=== PATIENT | male | born 1930 | race Caucasian/White ===

== ENCOUNTER 2018-07-14 00:08 | Emergency (ER) | payer MEDICARE, BC ==
[2018-07-14 00:13] VITALS: TEMP 97.8
--- NOTE | 2018-07-14 01:09 | ED ---
Male Urogenital HPI - General Chief complaint: Urogenital Stated complaint: Urine Retention Time Seen by Provider: 07/14/18 00:16 Source: patient Mode of arrival: ambulatory Limitations: no limitations - History of Present Illness Initial comments: 87-year-old male patient who is status post prostate biopsy this morning presents to the emergency department today for evaluation of urinary retention. Patient states he did urinate one time after the procedure however hasn't had no more urine output. Patient states he is having suprapubic discomfort. Patient states he has gotten out small amounts of blood since the surgery. He denies any fevers or chills. Denies any back pain. Denies any hematochezia or melena. Patient denies taking any anticoagulant medications. Patient denies any recent rash, shortness breath, chest pain, nausea, vomiting, diarrhea, constipation, numbness, tingling, dizziness, weakness, headache, visual changes , or any other complaints. - Related Data Home Medications Medication Instructions Recorded Confirmed Levothyroxine Sodium 25 mcg PO DAILY 07/14/18 07/14/18 Losartan Potassium [Cozaar] 25 mg PO DAILY 07/14/18 07/14/18 Allergies Allergy/AdvReac Type Severity Reaction Status Date / Time No Known Allergies Allergy Verified 07/14/18 00:13 Review of Systems ROS Statement: Those systems with pertinent positive or pertinent negative responses have been documented in the HPI. ROS Other: All systems not noted in ROS Statement are negative. Past Medical History Past Medical History: Dementia Additional Past Medical History / Comment(s): prostate biopsy today. prostate issues. bowel and bladder - pt will not give specifics. History of Any Multi-Drug Resistant Organisms: None Reported Additional Past Surgical History / Comment(s): biopsy of prostate. pt refusing to state all of them Past Psychological History: No Psychological Hx Reported Smoking Status: Never smoker Past Alcohol Use History: None Reported Past Drug Use History: None Reported General Exam Limitations: no limitations General appearance: alert, in no apparent distress, other (This is a well- developed, well-nourished elderly male patient in no acute distress. Vital signs upon presentation are temperature 97.8F, pulse 68, respirations 16, blood pressure 154/74, pulse ox 98% on room air.) Eye exam: Present: normal appearance, PERRL, EOMI. Absent: scleral icterus, conjunctival injection, periorbital swelling ENT exam: Present: normal exam, normal oropharynx, mucous membranes moist Respiratory exam: Present: normal lung sounds bilaterally. Absent: respiratory distress, wheezes, rales, rhonchi, stridor Cardiovascular Exam: Present: regular rate, normal rhythm, normal heart sounds. Absent: systolic murmur, diastolic murmur, rubs, gallop, clicks GI/Abdominal exam: Present: soft, tenderness (Suprapubic tenderness), normal bowel sounds. Absent: distended, guarding, rebound, rigid Neurological exam: Present: alert, oriented X3, CN II-XII intact Psychiatric exam: Present: normal affect, normal mood Skin exam: Present: warm, dry, intact, normal color. Absent: rash Course Vital Signs 07/14/18 07/14/18 00:09 01:33 Temperature 97.8 F Pulse Rate 68 65 Respiratory 16 18 Rate Blood Pressure 154/74 125/69 O2 Sat by Pulse 98 99 Oximetry Medical Decision Making - Medical Decision Making 87-year-old male patient presented to the emergency department today for evaluation of urinary retention after having a prostate biopsy earlier in the day. Physical examination did reveal some suprapubic tenderness. Johnson catheter was inserted patient had approximately 1600 mL output over a course of 2 hours. Patient is feeling much better. Urine is bright red in color, obviously mixed with urine. Urine was sent for culture. Patient is instructed to follow-up with his urologist in the morning. He is instructed to return if the catheter becomes occluded or for any other new, worsening, or concerning symptoms. He verbalizes understanding and agrees with this plan. Disposition Clinical Impression: Urinary retention, Hematuria Disposition: HOME SELF-CARE Condition: Good Instructions: Urinary Retention in Men (ED), Johnson Catheter Placement and Care (ED), Hematuria (ED) Additional Instructions: Increase fluids. Follow-up with your urologist Dr. Bryson tomorrow. Return here immediately for any new, worsening, or concerning symptoms. Is patient prescribed a controlled substance at d/c from ED?: No Referrals: Jose Moreno MD [Primary Care Provider] - 1-2 days Jaguar Bryson MD [STAFF PHYSICIAN] - 1-2 days Time of Disposition: 01:41
[2018-07-14 01:42] VITALS: BP 125/69; PULSE 65; RESP 18
== END 2018-07-14 01:53 | disposition home or self-care (01) ==
LOC: EC 00:08
DX: R33.9 Retention of urine, unspecified (principal); R31.9 Hematuria, unspecified; Z98.890 Other specified postprocedural states; Z79.899 Other long term (current) drug therapy
CPT/HCPCS: 51702; 87086; 99283

== ENCOUNTER 2018-07-18 23:04 | Emergency (ER) | payer MEDICARE, BC ==
[2018-07-18 23:12] VITALS: RESP 18
--- NOTE | 2018-07-18 23:48 | ED ---
Male Urogenital HPI - General Chief complaint: Urogenital Stated complaint: Urine Retention Time Seen by Provider: 07/18/18 23:36 Source: patient Mode of arrival: ambulatory Limitations: no limitations - History of Present Illness Initial comments: 87-year-old male patient presents the emergency department today for evaluation of urinary retention. Patient had Johnson catheter removed this morning at around 8 AM and has had only tiny dribbles since. Patient states there has been blood in the urine. Patient is complaining of suprapubic pressure and pain. Patient was seen and evaluated here for the same on 07/14/2018 after having a prostate biopsy performed. Patient did have Johnson catheter placed at that time. Patient denies any fevers or chills. Denies any back or flank pain. His prostate biopsy is still pending. Patient denies any recent rash, shortness breath, chest pain, nausea, vomiting, diarrhea, constipation, numbness , tingling, dizziness, weakness, headache, visual changes, or any other complaints. - Related Data Home Medications Medication Instructions Recorded Confirmed Levothyroxine Sodium 75 mcg PO DAILY 07/14/18 07/19/18 Losartan Potassium [Cozaar] 50 mg PO DAILY 07/14/18 07/19/18 Atenolol 25 mg PO DAILY 07/19/18 07/19/18 Tamsulosin HCl [Flomax] 0.4 mg PO DAILY 07/19/18 07/19/18 Previous Rx's Medication Instructions Recorded Sulfamethoxazole/Trimethoprim 1 each PO BID #28 tablet 07/19/18 [Bactrim DS 800-160 mg] Allergies Allergy/AdvReac Type Severity Reaction Status Date / Time No Known Allergies Allergy Verified 07/18/18 23:12 Review of Systems ROS Statement: Those systems with pertinent positive or pertinent negative responses have been documented in the HPI. ROS Other: All systems not noted in ROS Statement are negative. Past Medical History Past Medical History: Dementia Additional Past Medical History / Comment(s): prostate biopsy today. prostate issues. bowel and bladder - pt will not give specifics. History of Any Multi-Drug Resistant Organisms: None Reported Additional Past Surgical History / Comment(s): biopsy of prostate. pt refusing to state all of them Past Psychological History: No Psychological Hx Reported Smoking Status: Never smoker Past Alcohol Use History: None Reported Past Drug Use History: None Reported General Exam Limitations: no limitations General appearance: alert, in no apparent distress, other (This is a well- developed, well-nourished elderly male patient in no acute distress. Vital signs upon presentation are temperature 97.5F, pulse 86, respirations 18, blood pressure 150/75, pulse ox 98% on room air.) Eye exam: Present: normal appearance, PERRL, EOMI. Absent: scleral icterus, conjunctival injection, periorbital swelling ENT exam: Present: normal exam, normal oropharynx, mucous membranes moist Respiratory exam: Present: normal lung sounds bilaterally. Absent: respiratory distress, wheezes, rales, rhonchi, stridor Cardiovascular Exam: Present: regular rate, normal rhythm, normal heart sounds. Absent: systolic murmur, diastolic murmur, rubs, gallop, clicks GI/Abdominal exam: Present: soft, tenderness (suprapubic tenderness), normal bowel sounds. Absent: distended, guarding, rebound, rigid Back exam: Present: normal inspection. Absent: CVA tenderness (R), CVA tenderness (L) Neurological exam: Present: alert, oriented X3, CN II-XII intact Psychiatric exam: Present: normal affect, normal mood Skin exam: Present: warm, dry, intact, normal color. Absent: rash Course Vital Signs 07/18/18 07/19/18 23:10 01:36 Temperature 97.5 F L 97.1 F L Pulse Rate 86 89 Respiratory 18 18 Rate Blood Pressure 150/75 135/63 O2 Sat by Pulse 98 98 Oximetry Medical Decision Making - Medical Decision Making 87-year-old male patient presented to the emergency department today for evaluation for urinary retention. Patient did have Johnson catheter removed by his urologist this morning and has not urinated since. Physical examination did reveal suprapubic abdominal tenderness. Johnson catheter was inserted, had output of 600 mL, and patient did have immediate relief of symptoms. Urinalysis was obtained and showed 1+ protein, moderate blood, moderate leukocyte esterase, 88 red blood cells, 31 white blood cells, rare white blood cell clumps, rare amorphous sediment, rare urine bacteria, rare urine mucus. Given recent prostate biopsy and urinalysis results we will treat for urinary tract infection with coverage for prostatitis. Patient is instructed to follow- up with his urologist for recheck as soon as possible. Return parameters were discussed in detail. He verbalizes understanding and agrees with this plan. - Lab Data Lab Results 07/19/18 Range/Units 00:21 Urine Color Yellow Urine Appearance Cloudy (Clear) Urine pH 5.5 (5.0-8.0) Ur Specific [place] 1.011 (1.001-1.035) Urine Protein 1+ H (Negative) Urine Glucose (UA) Negative (Negative) Urine Ketones Negative (Negative) Urine Blood Moderate H (Negative) Urine Nitrite Negative (Negative) Urine Bilirubin Negative (Negative) Urine Urobilinogen <2.0 (<2.0) mg/dL Ur Leukocyte Esterase Moderate H (Negative) Urine RBC 88 H (0-5) /hpf Urine WBC 31 H (0-5) /hpf Urine WBC Clumps Rare H (None) /hpf Ur Squamous Epith Cells <1 (0-4) /hpf Amorphous Sediment Rare H (None) /hpf Urine Bacteria Rare H (None) /hpf Hyaline Casts 1 (0-2) /lpf Urine Mucus Rare H (None) /hpf Disposition Clinical Impression: Urinary retention, Urinary tract infection Disposition: HOME SELF-CARE Condition: Good Instructions: Urinary Tract Infection in Men (ED), Johnson Catheter Placement and Care (ED) Additional Instructions: Complete antibiotic prescription and full. Follow-up with your primary care physician for recheck in 1-2 days. Follow-up with urology for reevaluation as soon as possible. Return here immediately for any new, worsening, or concerning symptoms. Prescriptions: Sulfamethoxazole/Trimethoprim [Bactrim DS 800-160 mg] 1 each PO BID #28 tablet Is patient prescribed a controlled substance at d/c from ED?: No Referrals: Jose Moreno MD [Primary Care Provider] - 1-2 days Jaguar Bryson MD [STAFF PHYSICIAN] - 1-2 days Time of Disposition: 01:08
[2018-07-19 01:03] LABS: Amorphous Sediment,Urine Rare /hpf; Appearance,Urine Cloudy (Clear); Bacteria,Urine Rare /hpf; Bilirubin,Urine Negative (Negative); Blood,Urine Moderate (Negative); Color,Urine Yellow; Glucose,Urine (UA) Negative (Negative); Hyaline Casts,Urine 1 /lpf (0-2); Ketones,Urine Negative (Negative); Leukocyte Esterase,Urine Moderate (Negative); Mucus,Urine Rare /hpf; Nitrite,Urine Negative (Negative); PH, Urine 5.5 (5.0-8.0); Protein,Urine 1+ (Negative); RBC,Urine 88 /hpf (0-5); Specific Gravity,Urine 1.011 (1.001-1.035); Squamous Epithelial Cell,Urine <1 /hpf (0-4); Urobilinogen,Urine <2.0 mg/dL (<2.0); WBC,Urine 31 /hpf (0-5)
[2018-07-19] MEDS ORDERED: DOXYCYCLINE 50 MG CAP PO STA (01:05)
[2018-07-19] MEDS ORDERED: SULFAMETH-TMP DS STARTER PACK 2 TAB BTL PO STA (01:06)
[2018-07-19 01:38] VITALS: BP 135/63; PULSE 89; TEMP 97.1
== END 2018-07-19 01:38 | disposition home or self-care (01) ==
LOC: EC 23:04
DX: N39.0 Urinary tract infection, site not specified (principal); R33.9 Retention of urine, unspecified; Z98.890 Other specified postprocedural states; Z79.899 Other long term (current) drug therapy
CPT/HCPCS: 51702; 81001; 87086; 99283

== ENCOUNTER → 2018-07-24 | Outpatient (CLI) | payer MEDICARE, BC ==
--- NOTE | 2018-07-24 14:56 | NM ---
EXAMINATION TYPE: NM bone scan whole body DATE OF EXAM: 07/24/2018 COMPARISON: NONE HISTORY: C61 Prostate CA Delayed whole-body scanning was performed following the injection of 23.1 mCi Tc 99m MDP. Images acq uired 3 hours post injection. FINDINGS: There is increased radiotracer accumulation along the bilateral superior pubic rami and left osseous pubis. Metastatic disease is not excluded. Osteitis is an additional consideration. No additional are as of increased radiotracer accumulation to suggest the additional areas of metastatic disease. Degen erative uptake about the cervical spine, shoulders, wrists and knees and ankles. IMPRESSION: There is increased radiotracer accumulation along the bilateral superior pubic rami and left osseous pubis. Metastatic disease is not excluded. Osteitis is an additional consideration.
== END | disposition home or self-care (01) ==
LOC: RADNMMAIN 10:42
PROVIDERS: ATTEND Urology
DX: C61 Malignant neoplasm of prostate (principal); M85.39 Osteitis condensans, multiple sites
CPT/HCPCS: 78306; A9503

== ENCOUNTER 2018-07-25 23:39 | Emergency (ER) | payer MEDICARE, BC ==
[2018-07-25 23:43] VITALS: BP 116/45; PULSE 60; RESP 18; TEMP 98.3
[2018-07-26 00:15] LABS: Appearance,Urine Cloudy (Clear); Bacteria,Urine Many /hpf; Bilirubin,Urine Negative (Negative); Blood,Urine Moderate (Negative); Color,Urine Yellow; Glucose,Urine (UA) Negative (Negative); Ketones,Urine Negative (Negative); Leukocyte Esterase,Urine Large (Negative); Nitrite,Urine Positive (Negative); PH, Urine 5.5 (5.0-8.0); Protein,Urine 2+ (Negative); RBC,Urine 17 /hpf (0-5); Specific Gravity,Urine 1.015 (1.001-1.035); Urobilinogen,Urine <2.0 mg/dL (<2.0); WBC,Urine 128 /hpf (0-5)
--- NOTE | 2018-07-26 00:18 | ED ---
General Adult HPI - General Chief complaint: Urogenital Stated complaint: Urine Retention Time Seen by Provider: 07/25/18 23:44 Source: patient, RN notes reviewed, old records reviewed Mode of arrival: ambulatory Limitations: no limitations - History of Present Illness Initial comments: Chief complaint and history of present illness this is an 87-year-old male reports she's not been able to urinate since 8:30 this morning. Patient also states she's been her several times in the last 2 weeks this being the third time eating a catheter placed. He is currently taking antibiotics from a previous urinalysis. He states at he discussed this with his urologist and because this is the third time then they will consider surgery. He does have a history of prostate cancer. - Related Data Home Medications Medication Instructions Recorded Confirmed Levothyroxine Sodium 75 mcg PO DAILY 07/14/18 07/19/18 Losartan Potassium [Cozaar] 50 mg PO DAILY 07/14/18 07/19/18 Atenolol 25 mg PO DAILY 07/19/18 07/19/18 Tamsulosin HCl [Flomax] 0.4 mg PO DAILY 07/19/18 07/19/18 Previous Rx's Medication Instructions Recorded Sulfamethoxazole/Trimethoprim 1 each PO BID #28 tablet 07/19/18 [Bactrim DS 800-160 mg] Allergies Allergy/AdvReac Type Severity Reaction Status Date / Time No Known Allergies Allergy Verified 07/25/18 23:43 Review of Systems ROS Statement: Those systems with pertinent positive or pertinent negative responses have been documented in the HPI. Review of systems patient's only complaint is eyes not been able to urinate since 8:30 this morning. Past medical problems significant for prostate cancer. Also history of dementia the patient's nonsmoker nondrinker denies any ALLERGIES. ROS Other: All systems not noted in ROS Statement are negative. Past Medical History Past Medical History: Cancer, Dementia Additional Past Medical History / Comment(s): prostate biopsy today. prostate issues. bowel and bladder - pt will not give specifics. History of Any Multi-Drug Resistant Organisms: None Reported Additional Past Surgical History / Comment(s): biopsy of prostate. pt refusing to state all of them Past Psychological History: No Psychological Hx Reported Smoking Status: Never smoker Past Alcohol Use History: None Reported Past Drug Use History: None Reported General Exam - General Exam Comments Initial Comments: Vital signs shows temperature 98.3 pulse 60 respiratory rate 18 pulse ox 97% room air blood pressure 116/65 patient states she's not been able to urinate since approximately 8:30 this morning. Patient's abdomen is firm over the suprapubic area. Bladder scan showed an excess of 400 and knells. Johnson catheter was placed by the nurse and is draining freely. Limitations: no limitations Course Vital Signs 07/25/18 23:41 Temperature 98.3 F Pulse Rate 60 Respiratory 18 Rate Blood Pressure 116/45 O2 Sat by Pulse 97 Oximetry Medical Decision Making - Medical Decision Making Medical decision making; this is an 87-year-old male here with a history of prostate cancer. This is the third time and several weeks at the patient has had a Johnson catheter placed because of acute urinary retention. Last catheter was removed just this morning at 8:30 by his urologist. Since then he's had very little only a few drops out. She presents with suprapubic discomfort. A Johnson catheter was placed large amount of urine removed. The patient will again have leg bag placed. The patient will be following up with his urologist for further evaluation and possible TURP. Urinalysis shows large leuk esterase, 17 reds 128 whites WBC in clumps. The patient's currently on antibiotic. The only available culture of the urine was done 6 days ago and it reported to have shown no growth. Patient advised to continue with the current antibiotics. He'll be following up with his urologist - Lab Data Lab Results 07/25/18 Range/Units 23:57 Urine Color Yellow Urine Appearance Cloudy (Clear) Urine pH 5.5 (5.0-8.0) Ur Specific [place] 1.015 (1.001-1.035) Urine Protein 2+ H (Negative) Urine Glucose (UA) Negative (Negative) Urine Ketones Negative (Negative) Urine Blood Moderate H (Negative) Urine Nitrite Positive (Negative) Urine Bilirubin Negative (Negative) Urine Urobilinogen <2.0 (<2.0) mg/dL Ur Leukocyte Esterase Large H (Negative) Urine RBC 17 H (0-5) /hpf Urine WBC 128 H (0-5) /hpf Urine WBC Clumps Many H (None) /hpf Urine Bacteria Many H (None) /hpf Disposition Clinical Impression: Acute urinary retention, History of prostate cancer Disposition: HOME SELF-CARE Condition: Fair Instructions: Urinary Tract Infection in Men (ED), Prostate Cancer (DC) Additional Instructions: Continue home antibiotics. Call follow-up with urologist. Return emergency room as needed Is patient prescribed a controlled substance at d/c from ED?: No Referrals: Jose Moreno MD [Primary Care Provider] - 1-2 days Time of Disposition: 00:20
== END 2018-07-26 00:26 | disposition home or self-care (01) ==
LOC: EC 23:39
DX: R33.9 Retention of urine, unspecified (principal); Z85.46 Personal history of malignant neoplasm of prostate; Z79.899 Other long term (current) drug therapy
CPT/HCPCS: 51702; 81001; 99284

== ENCOUNTER → 2018-07-25 | Outpatient (CLI) | payer MEDICARE, BC ==
--- NOTE | 2018-07-25 09:41 | XR ---
EXAMINATION TYPE: XR pelvis AP view DATE OF EXAM: 07/25/2018 COMPARISON: Bone scan 07/24/2018 HISTORY: Follow-up prostate cancer There is an abnormal appearance to the corresponding bone scan abnormality involving the pubic rami g reater on the left highly suggestive of metastases. Arthropathy of the hips. Degenerative change lowe r lumbar spine surgical clips in the retroperitoneum. SI joints symmetric. IMPRESSION: 1. 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 Patient felt to be at risk for pathologic fracture of the left superior pubic ramus with destructive and mottled p attern noted.
== END | disposition home or self-care (01) ==
LOC: RADXRMAIN 09:18
PROVIDERS: ATTEND Urology
DX: C61 Malignant neoplasm of prostate (principal)
CPT/HCPCS: 72170

== ENCOUNTER 2018-08-04 14:05 | Inpatient (IN) | payer MEDICARE, BC ==
[2018-08-04] MEDS ORDERED: SODIUM CHLORIDE 0.9% 1,000 ML IV STA (15:20)
[2018-08-04 15:44] LABS: Calcium 9.7 mg/dL (8.4-10.2); Magnesium 1.9 mg/dL (1.6-2.3)
[2018-08-04 15:46] LABS: Potassium 7.3 mmol/L (3.5-5.1)
[2018-08-04 15:47] LABS: Basophils % (A) 0 %; Eosinophils # (A) 0.2 k/uL (0-0.7); Eosinophils % (A) 3 %; HCT 34.6 % (39.0-53.0); HGB 10.8 gm/dL (13.0-17.5); Lymphocytes # (A) 1.3 k/uL (1.0-4.8); Lymphocytes % (A) 16 %; MCHC 31.3 g/dL (31.0-37.0); MCV 92.8 fL (80.0-100.0); Mean Platelet Volume 6.8; Monocytes # (A) 0.6 k/uL (0-1.0); Monocytes % (A) 8 %; Neutrophils # (A) 5.6 k/uL (1.3-7.7); Neutrophils % (A) 72 %; Platelet Count 279 k/uL (150-450); RBC 3.73 m/uL (4.30-5.90); RDW 13.3 % (11.5-15.5); WBC 7.8 k/uL (3.8-10.6)
[2018-08-04] MEDS ORDERED: SODIUM POLYSTYRENE SULFONATE 15 GM/60 ML BOTTLE PO ONE ×2 (15:47→20:26)
[2018-08-04] MEDS ORDERED: DEXTROSE 50%-WATER 50 ML SYRINGE IVP ONE (15:47)
[2018-08-04] MEDS ORDERED: ALBUTEROL NEB (CONC) 2.5 MG/0.5 ML INHALATION ONE (15:47)
[2018-08-04] MEDS ORDERED: INSULIN REGULAR 100 UNIT/ML VIAL IV ONE (15:47)
[2018-08-04] MEDS ORDERED: CALCIUM GLUCONATE 1,000 MG in SODIUM CHLORIDE 0.9% 100 ML IVPB ONE (16:30)
--- NOTE | 2018-08-04 16:31 | ED ---
General Adult HPI - General Chief complaint: Recheck/Abnormal Lab/Rx Stated complaint: abn labs Source: patient Mode of arrival: ambulatory Limitations: no limitations - History of Present Illness Initial comments: Dictation was produced using [employer] dictation software. please excuse any grammatical, word or spelling errors. Chief Complaint: 87-year-old male brought in for abnormal outpatient labs. History of Present Illness: Patient is a 87-year-old male presents with abnormal outpatient labs. Patient was found have a potassium of 6.8 outpatient. Patient had labs performed for preoperative screening. Patient was scheduled to have a transurethral resection of the prostate. Labs were ordered by urology. Dr. Villafuerte follow-up with his labs and sent him to the emergency department. Patient has past medical history of cancer and dementia. The ROS documented in this emergency department record has been reviewed and confirmed by me. Those systems with pertinent positive or negative responses have been documented in the HPI. All other systems are other negative and/or noncontributory. - Related Data Home Medications Medication Instructions Recorded Confirmed Levothyroxine Sodium 75 mcg PO DAILY 07/14/18 07/19/18 Losartan Potassium [Cozaar] 50 mg PO DAILY 07/14/18 07/19/18 Atenolol 25 mg PO DAILY 07/19/18 08/04/18 Tamsulosin HCl [Flomax] 0.4 mg PO DAILY 07/19/18 07/19/18 Ciprofloxacin HCl [Cipro] 500 mg PO BID 08/04/18 08/04/18 Previous Rx's Medication Instructions Recorded Sulfamethoxazole/Trimethoprim 1 each PO BID #28 tablet 07/19/18 [Bactrim DS 800-160 mg] Allergies Allergy/AdvReac Type Severity Reaction Status Date / Time No Known Allergies Allergy Verified 08/04/18 16:26 Review of Systems ROS Statement: Those systems with pertinent positive or pertinent negative responses have been documented in the HPI. ROS Other: All systems not noted in ROS Statement are negative. Past Medical History Past Medical History: Cancer, Dementia Additional Past Medical History / Comment(s): prostate biopsy today. prostate issues. bowel and bladder - pt will not give specifics. History of Any Multi-Drug Resistant Organisms: None Reported Additional Past Surgical History / Comment(s): biopsy of prostate. pt refusing to state all of them Past Psychological History: No Psychological Hx Reported Smoking Status: Never smoker Past Alcohol Use History: None Reported Past Drug Use History: None Reported General Exam - General Exam Comments Initial Comments: PHYSICAL EXAM: General Impression: Alert and oriented x3, not in acute distress HEENT: Normocephalic atraumatic, extra-ocular movements intact, pupils equal and reactive to light bilaterally, mucous membranes moist. Cardiovascular: Heart regular rate and rhythm, S1&S2 audible, no murmurs, rubs or gallops Chest: Lungs clear to auscultation bilaterally, no rhonchi, no wheeze, no rales Abdomen: Bowel sounds present, abdomen soft, non-tender, non-distended, no organomegaly, Johnson catheter in place. Musculoskeletal: Pulses present and equal in all extremities, no peripheral edema Motor: Power 5/5 bilaterally, no focal deficits noted Neurological: CN II-XII grossly intact, no focal motor or sensory deficits noted Skin: Intact with no visualized rashes Psych: Normal affect and mood Limitations: no limitations Course Vital Signs 08/04/18 08/04/18 14:40 16:04 Temperature 98.7 F Pulse Rate 106 H 72 Respiratory 18 16 Rate Blood Pressure 102/70 125/63 O2 Sat by Pulse 98 97 Oximetry Medical Decision Making - Medical Decision Making ED course: 87-year-old male presents with hyperkalemia of unknown etiology. Vital signs upon arrival shows heart rate of 106, rest of vital signs within normal limits. Patient given intravenous fluids, insulin and dextrose and albuterol. At this point there is no clear source of patient's hyperkalemia. Laboratory evaluation obtained. CBC unremarkable, metabolic panel shows potassium 7.3. No Acidosis. Acidotic with a bicarb of 16. Elevated renal markers which appear to be at baseline. Patient does have mild peaked T waves. Discussed patient case with patient's primary care physician was willing to accept admission. EKG Interpretation: A 12 lead EKG was obtained. It was interpreted by myself and attending physician. There is a P wave before every QRS complex. Rate is a 83. Rhythm is normal sinus rhythm, SC interval 140, QRS 92, QTC 390. QT is not prolonged. No ST segment depression or elevation. Mild peaked T waves.. Overall, this EKG is unremarkable - Lab Data Result diagrams: 08/04/18 15:09 08/04/18 15:09 Lab Results 08/04/18 08/04/18 Range/Units 15:09 15:09 WBC 7.8 (3.8-10.6) k/uL RBC 3.73 L (4.30-5.90) m/uL Hgb 10.8 L (13.0-17.5) gm/dL Hct 34.6 L (39.0-53.0) % MCV 92.8 (80.0-100.0) fL MCH 29.0 (25.0-35.0) pg MCHC 31.3 (31.0-37.0) g/dL RDW 13.3 (11.5-15.5) % Plt Count 279 (150-450) k/uL Neutrophils % 72 % Lymphocytes % 16 % Monocytes % 8 % Eosinophils % 3 % Basophils % 0 % Neutrophils # 5.6 (1.3-7.7) k/uL Lymphocytes # 1.3 (1.0-4.8) k/uL Monocytes # 0.6 (0-1.0) k/uL Eosinophils # 0.2 (0-0.7) k/uL Basophils # 0.0 (0-0.2) k/uL Sodium 140 (137-145) mmol/L Potassium 7.3 H* (3.5-5.1) mmol/L Chloride 115 H (98-107) mmol/L Carbon Dioxide 16 L (22-30) mmol/L Anion Gap 9 mmol/L BUN 53 H (9-20) mg/dL Creatinine 2.34 H (0.66-1.25) mg/dL Est GFR (CKD-EPI)AfAm 28 (>60 ml/min/1.73 sqM) Est GFR (CKD-EPI)NonAf 24 (>60 ml/min/1.73 sqM) Glucose 96 (74-99) mg/dL Calcium 9.7 (8.4-10.2) mg/dL Magnesium 1.9 (1.6-2.3) mg/dL Disposition Clinical Impression: Hyperkalemia Disposition: ADMITTED IP TO THIS HOSP Condition: Fair Referrals: Jose Moreno MD [Primary Care Provider] - 1-2 days Decision Time: 16:31
[2018-08-04] MEDS ORDERED: NALOXONE 0.4 MG/ML 1 ML VIAL IV PRN (16:32)
[2018-08-04] MEDS ORDERED: SODIUM CHLORIDE 0.9% 1,000 ML IV SCH (20:30)
[2018-08-04] MEDS: ATENOLOL 25 MG TAB PO SCH (22:05)
[2018-08-05] MEDS: LEVOTHYROXINE 75 MCG TAB PO SCH (06:07)
[2018-08-05 06:39] LABS: Basophils % (A) 0 %; Eosinophils # (A) 0.2 k/uL (0-0.7); Eosinophils % (A) 4 %; HCT 33.2 % (39.0-53.0); HGB 10.6 gm/dL (13.0-17.5); Hypochromasia Slight; Lymphocytes # (A) 1.2 k/uL (1.0-4.8); Lymphocytes % (A) 20 %; MCHC 32.1 g/dL (31.0-37.0); MCV 93.5 fL (80.0-100.0); Mean Platelet Volume 6.4; Monocytes # (A) 0.4 k/uL (0-1.0); Monocytes % (A) 7 %; Neutrophils % (A) 67 %; Platelet Count 236 k/uL (150-450); RBC 3.55 m/uL (4.30-5.90); RDW 13.3 % (11.5-15.5)
[2018-08-05 06:48] LABS: Calcium 9.3 mg/dL (8.4-10.2)
[2018-08-05 07:09] LABS: Potassium 6.6 mmol/L (3.5-5.1)
[2018-08-05] MEDS ORDERED: SODIUM POLYSTYRENE SULFONATE 15 GM/60 ML BOTTLE PO ONE (07:13)
[2018-08-05] MEDS: ATENOLOL 25 MG TAB PO SCH (08:15)
--- NOTE | 2018-08-05 10:10 | P.GSCN ---
History of Present Illness Consult date: 08/05/18 Reason for Consult: Urinary retention History of present illness: The patient is an 87-year-old male admitted through the emergency room on 08/04 for evaluation of acute renal failure and hyperkalemia. The patient underwent transrectal ultrasound needle biopsy of the prostate performed by Dr. Bryson on and apparently had gross hematuria following the biopsy which required placement of a catheter in the emergency room following day. The catheter was removed on 07/18 at the patient was unable to void and the catheter was reinserted. He was suspected to have a urinary tract infection and was placed on Bactrim DS 1 by ID for 14 days however the urine culture actually showed no growth. It was removed a third time on 07/26 and reinserted and has been left in place. He says his urine has been clear since the initial episode of hematuria following the biopsies. His biopsies did show a Lynn 4+5 = 9 prostate cancer in the left lateral base and left base. He is uncertain as to his PSA level but he says that he thought it was less than 5. A bone scan on showed increased uptake in the pubic rami bilaterally suggestive of metastatic disease. Due to the patient's persistent urinary retention TURP has been recommended and had tentatively been scheduled for 08/07. The patient says that he was noted to have abnormal potassium and renal function tests on 08/01 and 08/03 and they repeated again yesterday and when the results were returned he was advised to come to the emergency room for evaluation. When he came to the emergency room his potassium was 6.8 and his bicarb was 16. BUN/creatinine were 50/2.5. The hyperkalemia has been treated with Kayexalate and his potassium this morning remains 6.6 and his bicarb is 17 BUN/creatinine are 42/ 1.95. The patient says he has a history of which was treated over 15 years ago with transurethral resection. He believes he also had a TURP at that time. He says that he has noted a slow urinary flow for a long time. He usually voids every hour during the day and at least 4 or 5 times at night. Has no history of recurrent urinary tract infection. Review of Systems - Constitutional Reports fatigue, Denies chills, Denies fever - Cardiovascular Denies chest pain, Denies shortness of breath - Gastrointestinal Denies abdominal pain, Denies constipation - Genitourinary Reports as per HPI Past Medical History Past Medical History: Cancer, Dementia, Thyroid Disorder Additional Past Medical History / Comment(s): Prostate Cancer, pt states "he was diagnosed 22 years old". pt states "short-term impairment" History of Any Multi-Drug Resistant Organisms: None Reported Additional Past Surgical History / Comment(s): biopsy of prostate. pt states "he had bladder surgery with removal of tumor" Past Anesthesia/Blood Transfusion Reactions: No Reported Reaction Past Psychological History: No Psychological Hx Reported Smoking Status: Former smoker Past Alcohol Use History: None Reported Past Drug Use History: None Reported - Past Family History Mother Family Medical History: Cancer Additional Family Medical History / Comment(s): Breast Cancer. Father Family Medical History: Myocardial Infarction ([place]) Medications and Allergies Home Medications Medication Instructions Recorded Confirmed Type Levothyroxine Sodium 75 mcg PO DAILY 07/14/18 08/04/18 History Losartan Potassium [Cozaar] 25 mg PO DAILY 07/14/18 08/04/18 History Atenolol 25 mg PO DAILY 07/19/18 08/04/18 History Ciprofloxacin HCl [Cipro] 500 mg PO BID 08/04/18 08/04/18 History Allergies Allergy/AdvReac Type Severity Reaction Status Date / Time No Known Allergies Allergy Verified 08/04/18 16:26 Surgical - Exam Vital Signs Temp Pulse Resp BP Pulse Ox 98.7 F 106 H 18 102/70 98 08/04/18 14:40 08/04/18 14:40 08/04/18 14:40 08/04/18 14:40 08/04/18 14:40 - General well developed, well nourished, no distress - Neck no masses, no lymphadectomy - Respiratory normal respiratory effort - Abdomen Abdomen: soft, non tender, no organomegaly - Genitourinary normal penis with no external lesions, testicles non-tender, other (Johnson catheter is draining clear urine) Results - Labs 08/05/18 05:33 08/05/18 05:33 Abnormal Lab Results - Last 24 Hours (Table) 08/04/18 08/04/18 08/04/18 Range/Units 15:09 15:09 17:04 RBC 3.73 L (4.30-5.90) m/uL Hgb 10.8 L (13.0-17.5) gm/dL Hct 34.6 L (39.0-53.0) % Potassium 7.3 H* 5.6 H (3.5-5.1) mmol/L Chloride 115 H (98-107) mmol/L Carbon Dioxide 16 L (22-30) mmol/L BUN 53 H (9-20) mg/dL Creatinine 2.34 H (0.66-1.25) mg/dL 08/05/18 08/05/18 Range/Units 05:33 05:33 RBC 3.55 L (4.30-5.90) m/uL Hgb 10.6 L (13.0-17.5) gm/dL Hct 33.2 L (39.0-53.0) % Potassium 6.6 H* (3.5-5.1) mmol/L Chloride 117 H (98-107) mmol/L Carbon Dioxide 17 L (22-30) mmol/L BUN 42 H (9-20) mg/dL Creatinine 1.95 H (0.66-1.25) mg/dL Diabetes panel 08/04/18 08/04/18 08/05/18 Range/Units 15: 17:04 05:33 Sodium 140 142 (137-145) mmol/L Potassium 7.3 H* 5.6 H 6.6 H* (3.5-5.1) mmol/L Chloride 115 H 117 H (98-107) mmol/L Carbon Dioxide 16 L 17 L (22-30) mmol/L BUN 53 H 42 H (9-20) mg/dL Creatinine 2.34 H 1.95 H (0.66-1.25) mg/dL Glucose 96 78 (74-99) mg/dL Calcium 9.7 9.3 (8.4-10.2) mg/dL Calcium panel 08/04/18 08/05/18 Range/Units 15:09 05:33 Calcium 9.7 9.3 (8.4-10.2) mg/dL Pituitary panel 08/04/18 08/04/18 08/05/18 Range/Units 15:09 17:04 05:33 Sodium 140 142 (137-145) mmol/L Potassium 7.3 H* 5.6 H 6.6 H* (3.5-5.1) mmol/L Chloride 115 H 117 H (98-107) mmol/L Carbon Dioxide 16 L 17 L (22-30) mmol/L BUN 53 H 42 H (9-20) mg/dL Creatinine 2.34 H 1.95 H (0.66-1.25) mg/dL Glucose 96 78 (74-99) mg/dL Calcium 9.7 9.3 (8.4-10.2) mg/dL Adrenal panel 08/04/18 08/04/18 08/05/18 Range/Units 15:09 17:04 05:33 Sodium 140 142 (137-145) mmol/L Potassium 7.3 H* 5.6 H 6.6 H* (3.5-5.1) mmol/L Chloride 115 H 117 H (98-107) mmol/L Carbon Dioxide 16 L 17 L (22-30) mmol/L BUN 53 H 42 H (9-20) mg/dL Creatinine 2.34 H 1.95 H (0.66-1.25) mg/dL Glucose 96 78 (74-99) mg/dL Calcium 9.7 9.3 (8.4-10.2) mg/dL Assessment and Plan (1) Urinary retention Narrative/Plan: The patient's urinary retention is probably on the basis of a combination of BPH and prostate cancer. His prostate cancer is high grade based on his previous biopsies. He had been scheduled for TURP but this will need to be deferred until the etiology of his acute renal failure has been clarified. Current Visit: No Status: Acute Code(s): R33.9 - RETENTION OF URINE, UNSPECIFIED SNOMED Code(s): 667200576 (2) Hyperkalemia Narrative/Plan: The patient's hyperkalemia is most likely related to acute renal failure. The patient has metabolic acidosis which implies that this problem may have been present for longer than the last 2 weeks. He was recently diagnosed with prostate cancer and a renal ultrasound or computed tomography scan should be obtained to assess whether the patient has hydronephrosis as a component of his acute renal failure. The patient also had been placed on Bactrim on 07/18 which could potentially have been a contributory factor to his abnormal renal function , especially as he received a dose which was not based on his impaired renal function. Current Visit: Yes Status: Acute Code(s): E87.5 - HYPERKALEMIA SNOMED Code (s): 60934104
[2018-08-05] MEDS: IOPAMIDOL-300 CONTRAST 30 ML VIAL (ORAL USE) PO PRN ×2 (11:33→12:34)
--- NOTE | 2018-08-05 13:33 | CT ---
EXAMINATION TYPE: CT abdomen pelvis wo con DATE OF EXAM: 08/05/2018 COMPARISON: None. HISTORY: Prostate cancer and acute renal failure CT DLP: 725 mGycm Automated exposure control for dose reduction was used. FINDINGS: There is some minimal atelectasis at the left lung base. The heart is not enlarged. There i s no pleural or pericardial fluid. 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 There is moderate atheromatous calcification of the visualized arterial tree. There is a 3.5 cm in frarenal abdominal aortic aneurysm.. Within the abdomen, there is a coarse calcification in the lateral aspect of the right lobe of the li bernie. This may relate to previous granulomatous change. There is an 11 mm low attenuating lesion in th e posterior segment of the right lobe of the liver. This may represent a cyst. No other definite hepa tic lesions are seen. The gallbladder is partially contracted. The spleen is unremarkable. There is a large, 3.9 cm cyst arising from the lower pole of the right kidney. There are multiple lef t-sided cysts. The largest is in the lower pole and measures 5.8 cm. There is no evidence of nephroli thiasis or hydronephrosis. Limited views of the pancreas are normal. There is no significant retroperitoneal, iliac or inguinal adenopathy. The prostate gland is enlarged . There is a Johnson catheter within the bladder. There are scattered diverticula in the sigmoid region. There is no radiographic evidence of diverticu litis. The appendix is not visualized with certainty. Small bowel loops are normal in caliber. There is no free fluid and no free air identified. There is degenerative disc disease and a vacuum phenomena present at L5-S1. There is facet arthropath y as well as hypertrophic spondylosis. No sclerotic metastases are seen. IMPRESSION: 1. 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 2. BILATERAL RENAL CYSTIC DISEASE. 3. SOLITARY LESION IN THE POSTERIOR SEGMENT OF THE RIGHT LOBE OF THE LIVER LIKELY REPRESENTS A CYST. THIS COULD BE CONFIRMED WITH ULTRASOUND. 4. MINIMAL UNCOMPLICATED DIVERTICULOSIS OF THE SIGMOID COLON. 5. DEGENERATIVE CHANGES WITHIN THE SPINE.
[2018-08-05 14:25] VITALS: BMI 21.5
[2018-08-05] MEDS ORDERED: SODIUM CHLORIDE 0.9% 1,000 ML IV STA (15:22)
--- NOTE | 2018-08-05 15:26 | P.HPIM ---
History of Present Illness H&P Date: 08/05/18 Raul Botello is an 87-year-old male well-known to my practice, who presented to [facility] for preoperative labs, patient was scheduled to have a TURP on Tuesday he was noticed to have elevated potassium of 7.3, he was sent to emergency room he was treated for hyperkalemia and was admitted to telemetry floor for further evaluation, patient had evidence of acute renal failure was elevated BUN at 53 and elevated creatinine at 2.34, he also had evidence of urinary retention, he had Johnson catheter inserted. Patient had multiple episodes of urinary retention in the last 2 weeks, he had Johnson catheter inserted and removed twice, he has a known diagnosis of benign prostatic hypertrophy and diagnosis of prostate cancer, he was scheduled to have surgery on Tuesday. Past Medical History Past Medical History: Cancer, Dementia, Thyroid Disorder Additional Past Medical History / Comment(s): Prostate Cancer, pt states "he was diagnosed 22 years old". pt states "short-term impairment" History of Any Multi-Drug Resistant Organisms: None Reported Additional Past Surgical History / Comment(s): biopsy of prostate. pt states "he had bladder surgery with removal of tumor" Past Anesthesia/Blood Transfusion Reactions: No Reported Reaction Past Psychological History: No Psychological Hx Reported Smoking Status: Former smoker Past Alcohol Use History: None Reported Past Drug Use History: None Reported - Past Family History Mother Family Medical History: Cancer Additional Family Medical History / Comment(s): Breast Cancer. Father Family Medical History: Myocardial Infarction ([place]) Medications and Allergies Home Medications Medication Instructions Recorded Confirmed Type Levothyroxine Sodium 75 mcg PO DAILY 07/14/18 08/04/18 History Losartan Potassium [Cozaar] 25 mg PO DAILY 07/14/18 08/04/18 History Atenolol 25 mg PO DAILY 07/19/18 08/04/18 History Ciprofloxacin HCl [Cipro] 500 mg PO BID 08/04/18 08/04/18 History Allergies Allergy/AdvReac Type Severity Reaction Status Date / Time No Known Allergies Allergy Verified 08/04/18 16:26 Physical Exam Vitals: Vital Signs Temp Pulse Pulse Resp BP BP Pulse Ox 08/05/18 11:50 86 16 132/60 96 08/05/18 11:10 16 08/05/18 08:00 75 16 152/67 96 08/05/18 03:53 97.2 F L 74 18 134/61 99 08/05/18 00:00 97.3 F L 76 16 143/75 100 08/04/18 20:00 97.5 F L 92 18 146/67 98 08/04/18 18:58 97.8 F 78 16 128/70 98 08/04/18 17:46 98 F 97 16 137/63 98 08/04/18 16:32 76 08/04/18 16:27 71 08/04/18 16:04 72 16 125/63 97 Intake and Output 08/05/18 08/05/18 08/05/18 06:59 14:59 22:59 Intake Total 300 478 Output Total 700 700 Balance -400 -222 Intake: Intake, IV Titration 300 Amount Sodium Chloride 0.9% 1, 300 000 ml @ 50 mls/hr IV . Q20H [facility] Rx#:[id number] Oral 478 Output: Urine 700 700 Other: Voiding Method Indwelling Catheter Indwelling Catheter Weight 72 kg 72 kg In general patient is alert and oriented 3 in no apparent distress HEENT head normocephalic and atraumatic Neck is supple no JVD no goiter no lymphadenopathy Chest is clear no crackles no wheezing Cardiac exam reveals regular heart sounds no gallops no murmurs Abdomen is soft nontender no organomegaly with normal bowel sounds Extremity exam reveals no edema no cyanosis or clubbing Neurological examination reveals no gross focal deficit Results CBC & Chem 7: 08/05/18 05:33 08/05/18 05:33 Labs: Abnormal Lab Results - Last 24 Hours (Table) 08/04/18 08/04/18 08/04/18 Range/Units 15:09 15:09 17:04 RBC 3.73 L (4.30-5.90) m/uL Hgb 10.8 L (13.0-17.5) gm/dL Hct 34.6 L (39.0-53.0) % Potassium 7.3 H* 5.6 H (3.5-5.1) mmol/L Chloride 115 H (98-107) mmol/L Carbon Dioxide 16 L (22-30) mmol/L BUN 53 H (9-20) mg/dL Creatinine 2.34 H (0.66-1.25) mg/dL 08/05/18 08/05/18 Range/Units 05:33 05:33 RBC 3.55 L (4.30-5.90) m/uL Hgb 10.6 L (13.0-17.5) gm/dL Hct 33.2 L (39.0-53.0) % Potassium 6.6 H* (3.5-5.1) mmol/L Chloride 117 H (98-107) mmol/L Carbon Dioxide 17 L (22-30) mmol/L BUN 42 H (9-20) mg/dL Creatinine 1.95 H (0.66-1.25) mg/dL Thrombosis Risk Factor Assmnt - Choose All That Apply Any of the Below Risk Factors Present?: No Other Risk Factors: Yes Each Risk Factor Represents 3 Points: Age 75 years or older Thrombosis Risk Factor Assessment Total Risk Factor Score: 3 Thrombosis Risk Factor Assessment Level: Moderate Risk Assessment and Plan Plan: #1 severe hyperkalemia #2 acute renal failure #3 urinary retention #4 underlying history of prostatic hypertrophy #5 underlying history of prostate cancer At this time patient was seen and examined he is receiving IV fluids, Kayexalate , and potassium is being monitored closely He has a Johnson catheter in, and urology consult following Medication and labs reviewed will recheck labs in a.m. and continue to follow potassium level closely
[2018-08-06 03:22] VITALS: TEMP 96.7
[2018-08-06] MEDS: LEVOTHYROXINE 75 MCG TAB PO SCH (06:11)
[2018-08-06 07:06] LABS: Calcium 8.9 mg/dL (8.4-10.2)
[2018-08-06 08:14] VITALS: RESP 16
[2018-08-06] MEDS: ATENOLOL 25 MG TAB PO SCH (08:15)
--- NOTE | 2018-08-06 09:09 | P.PN ---
Progress Note - Text Progress Note Date: 08/06/18 The patient is afebrile and normotensive. His renal function has improved and his BUN/creatinine today are 35/1.62. Bicarb is 20. Potassium is 5.0 Computed tomography scan of the abdomen and pelvis identified several large renal cysts but no evidence of hydronephrosis. Bladder was thick walled but could not be better evaluated due to a Johnson catheter. There was no definite evidence of pelvic or retroperitoneal adenopathy. The patient is scheduled to undergo TURP tomorrow and from my standpoint the patient could be discharged later today and proceed with the surgery. The cause of the patient's acute renal failure remains unclear but it is possible that he could have had some sort of reaction to the Bactrim which had been given several weeks ago. The renal failure did not appear to be related to obstruction.
--- NOTE | 2018-08-06 09:55 | P.NPCON ---
History of Present Illness - Reason for Consult acute renal failure, hyperkalemia - History of Present Illness Reason for consultation: Acute kidney injury and hyperkalemia History of present illness: Patient is a 87-year-old male seen in consultation for acute kidney injury on chronic kidney disease and hyperkalemia. Patient has history of prostate cancer and has undergone TURP several years ago. He is scheduled to undergo TURP for the second time tomorrow. Patient had blood work done as an outpatient in his potassium level was 6.8 and subsequently sent to the hospital. In the hospital his potassium level was 7.3 and bicarb level of 16. His creatinine was also 2.34. Patient appears to have chronic kidney disease stage III with baseline creatinine near 1.6 going back to 2013. The hyperkalemia was medically treated and is 5.0 this morning. He was taking losartan at home for blood pressure control and was also started on Bactrim which she's been taking for the past 2 weeks. Patient states his last dose of Bactrim was on Tuesday. He was taking Bactrim for concern for UTI although urine culture showed no growth. He is a Johnson catheter in place for urinary retention and is nonoliguric. Oral intake is good. No vomiting or diarrhea. Denies chest pain or shortness of breath. He is eager to go home. Hemodynamically stable. Vital signs are stable. General: The patient appeared well nourished and normally developed. HEENT: Head exam is unremarkable. Neck is without jugular venous distension. LUNGS: Lungs are clear to auscultation and percussion. Breath sounds decreased. HEART: Rate and Rhythm are regular. First and second heart sounds normal. No murmurs, rubs or gallops. ABDOMEN: Abdominal exam reveals normal bowel sounds. Non-tender and non- distended. No evidence of peritonitis. EXTREMITITES: No clubbing, cyanosis, or edema. Past Medical History Past Medical History: Cancer, Dementia, Thyroid Disorder Additional Past Medical History / Comment(s): Prostate Cancer, pt states "he was diagnosed 22 years old". pt states "short-term impairment" History of Any Multi-Drug Resistant Organisms: None Reported Additional Past Surgical History / Comment(s): biopsy of prostate. pt states "he had bladder surgery with removal of tumor" Past Anesthesia/Blood Transfusion Reactions: No Reported Reaction Past Psychological History: No Psychological Hx Reported Smoking Status: Former smoker Past Alcohol Use History: None Reported Past Drug Use History: None Reported - Past Family History Mother Family Medical History: Cancer Additional Family Medical History / Comment(s): Breast Cancer. Father Family Medical History: Myocardial Infarction ([place]) Medications and Allergies Home Medications Medication Instructions Recorded Confirmed Type Levothyroxine Sodium 75 mcg PO DAILY 07/14/18 08/04/18 History Losartan Potassium [Cozaar] 25 mg PO DAILY 07/14/18 08/04/18 History Atenolol 25 mg PO DAILY 07/19/18 08/04/18 History Ciprofloxacin HCl [Cipro] 500 mg PO BID 08/04/18 08/04/18 History Allergies Allergy/AdvReac Type Severity Reaction Status Date / Time No Known Allergies Allergy Verified 08/04/18 16:26 Physical Exam Vitals: Vital Signs Temp Pulse Resp BP Pulse Ox 08/06/18 08:00 84 16 124/57 95 08/06/18 03:18 96.7 F L 71 18 130/63 95 08/06/18 00:00 97.7 F 82 18 139/65 95 08/05/18 20:00 96.9 F L 77 18 128/64 98 08/05/18 16:00 73 16 139/66 97 08/05/18 11:50 86 16 132/60 96 08/05/18 11:10 16 Intake and Output 08/05/18 08/06/18 08/06/18 22:59 06:59 14:59 Intake Total 222 750 Output Total 600 1100 Balance -378 -350 Intake: Intake, IV Titration 750 Amount Sodium Chloride 0.9% 1, 750 000 ml @ 75 mls/hr IV . [id number] [facility] Rx#:[id number] Oral 222 Output: Urine 600 1100 Other: Voiding Method Indwelling Catheter Indwelling Catheter # Bowel Movements 1 Weight 72.7 kg Results - Lab Results Most recent lab results Calcium 8.9 mg/dL (8.4-10.2) 08/06/18 06:13 Magnesium 1.9 mg/dL (1.6-2.3) 08/04/18 15:09 08/05/18 05:33 08/06/18 06:13 Assessment and Plan Plan: Assessment: 1. Nonoliguric acute kidney injury mostly prerenal improving with IV hydration. Bactrim can also falsely elevate creatinine level. Creatinine was 2.34 on admission and is down to 1.62 today. No evidence of hydronephrosis noted on CAT scan. 2. Metabolic acidosis secondary to acute kidney injury. 3. Hyperkalemia secondary to acute kidney injury, metabolic acidosis, losartan as well as Bactrim. Improved. 4. Urinary retention status post Johnson catheter placement. 5. Prostate cancer scheduled for TURP tomorrow. 6. Chronic kidney disease stage III with baseline creatinine near 1.6. 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 7. Hypertension with chronic kidney disease. Controlled. Plan: Bactrim has been discontinued. Losartan also held for now. Blood pressure is controlled. Continue with atenolol. Cleared for TURP tomorrow from nephrology standpoint. Check UA. Thank you for the consultation. I will continue to follow the patient with you during his hospital stay.
[2018-08-06 11:51] VITALS: BP 147/85; PULSE 65
--- NOTE | 2018-08-06 12:50 | P.DS ---
Providers Date of admission: 08/04/18 16:32 Expected date of discharge: 08/06/18 Attending physician: Jose Moreno Consults: 08/04/18 16:33 Consult Physician Routine Consulting Provider: Jaguar Bryson Consult Reason/Comments: needs TURP Do you want consulting provider notified?: Yes 08/05/18 14:42 Consult Physician Routine Consulting Provider: Betty Rodriges Consult Reason/Comments: acute renal failure, hyperkalemia Do you want consulting provider notified?: Yes Primary care physician: Jose Josh [facility] Course: Diagnosis on discharge: #1 severe hyperkalemia #2 acute renal failure #3 urinary retention #4 underlying history of prostatic hypertrophy #5 underlying history of prostate cancer #6 acute metabolic acidosis Hospital course: Raul Botello is an 87-year-old male well-known to my practice, who presented to [facility] for preoperative labs, patient was scheduled to have a TURP on Tuesday he was noticed to have elevated potassium of 7.3, he was sent to emergency room he was treated for hyperkalemia and was admitted to telemetry floor for further evaluation, patient had evidence of acute renal failure was elevated BUN at 53 and elevated creatinine at 2.34, he also had evidence of urinary retention, he had Johnson catheter inserted. Patient had multiple episodes of urinary retention in the last 2 weeks, he had Johnson catheter inserted and removed twice, he has a known diagnosis of benign prostatic hypertrophy and diagnosis of prostate cancer, he was scheduled to have surgery on Tuesday. On 08/06/2018 patient is alert and oriented 3 in no apparent distress, he denies any symptoms , his potassium is down to 5.0 his BUN and creatinine are improving, he was evaluated by nephrology and urology and was cleared for discharge, he will return to the hospital tomorrow for TURP, patient advised to be on low potassium diet, he was also advised not to restart losartan, will continue with atenolol 25 mg daily, and monitor blood pressure closely as outpatient if needed will add a different blood pressure medication. Patient was advised to drink lots of water, to stay on low potassium diet, and to have potassium rechecked tomorrow prior to surgery. Patient Condition at Discharge: Fair Plan - Discharge Summary Discharge Rx Participant: No New Discharge Prescriptions: Continue Levothyroxine Sodium 75 mcg PO DAILY Atenolol 25 mg PO DAILY Ciprofloxacin HCl [Cipro] 500 mg PO BID Discontinued Losartan Potassium [Cozaar] 25 mg PO DAILY Discharge Medication List Levothyroxine Sodium 75 mcg PO DAILY 07/14/18 [History] Atenolol 25 mg PO DAILY 07/19/18 [History] Ciprofloxacin HCl [Cipro] 500 mg PO BID 08/04/18 [History] Follow up Appointment(s)/Referral(s): Jose Moreno MD [Primary Care Provider] - 1-2 days
== END 2018-08-06 14:18 | disposition home or self-care (01) | DRG 683 ==
LOC: EC 14:05 → 6SEL 16:32
PROVIDERS: ADMIT Internal Medicine; ATTEND Internal Medicine
DX: N17.9 Acute kidney failure, unspecified (principal); E87.2 Acidosis; E87.5 Hyperkalemia; C61 Malignant neoplasm of prostate; F03.90 Unspecified dementia, unspecified severity, without behavioral disturbance, psychotic disturbance, mood disturbance, and anxiety; N28.1 Cyst of kidney, acquired; N18.3 Chronic kidney disease, stage 3 (moderate); I12.9 Hypertensive chronic kidney disease with stage 1 through stage 4 chronic kidney disease, or unspecified chronic kidney disease; N40.1 Benign prostatic hyperplasia with lower urinary tract symptoms; R33.8 Other retention of urine; Z79.890 Hormone replacement therapy; Z79.899 Other long term (current) drug therapy; Z85.46 Personal history of malignant neoplasm of prostate; Z87.891 Personal history of nicotine dependence; Z80.3 Family history of malignant neoplasm of breast; Z82.49 Family history of ischemic heart disease and other diseases of the circulatory system; E07.9 Disorder of thyroid, unspecified
CPT/HCPCS: 36415; 74176; 80048; 83735; 84132; 85025; 93005; 94640; 96365; 96375; 99285

== ENCOUNTER → 2018-08-04 | Outpatient (CLI) | payer MEDICARE, BC ==
[2018-08-04 11:35] LABS: Calcium 9.6 mg/dL (8.4-10.2)
[2018-08-04 11:41] LABS: Potassium 6.8 mmol/L (3.5-5.1)
== END ==
LOC: LABWHC1 10:33
PROVIDERS: ATTEND Urology
DX: R33.9 Retention of urine, unspecified (principal)
CPT/HCPCS: 36415; 80048

== ENCOUNTER 2018-08-07 23:54 | Emergency (ER) | payer MEDICARE, BC ==
--- NOTE | 2018-08-08 02:13 | ED ---
Male Urogenital HPI - General Source: patient Mode of arrival: ambulatory Limitations: no limitations <Ingris Roger - Last Filed: 08/08/18 04:41> <Carey Matamoros - Last Filed: 08/08/18 08:29> - General Chief complaint: Urogenital Stated complaint: catheter issue Time Seen by Provider: 08/08/18 00:27 - History of Present Illness Initial comments: 87-year-old male patient who underwent transurethral resection of the prostate earlier today presents to the emergency department today with complaints of catheter occlusion. Patient states that he has had very minimal output of bloody urine to the bag. Patient states he is having some mild suprapubic discomfort. Patient reports that he was instructed by his urologist to present for a flush of the catheter if this situation occurred. Patient denies any fevers or chills. Denies any significant abdominal discomfort. Patient denies any recent rash, shortness breath, chest pain, abdominal pain, nausea, vomiting , diarrhea, constipation, back pain, numbness, tingling, dizziness, weakness, headache, visual changes, or any other complaints. (Ingris Roger) - Related Data Home Medications Medication Instructions Recorded Confirmed Levothyroxine Sodium 75 mcg PO DAILY 07/14/18 08/08/18 Atenolol 25 mg PO DAILY 07/19/18 08/08/18 Ciprofloxacin HCl [Cipro] 500 mg PO BID 08/04/18 08/08/18 Allergies Allergy/AdvReac Type Severity Reaction Status Date / Time No Known Allergies Allergy Verified 08/08/18 00:00 Review of Systems ROS Other: All systems not noted in ROS Statement are negative. <Ingris Roger - Last Filed: 08/08/18 04:41> ROS Other: All systems not noted in ROS Statement are negative. <Carey Matamoros - Last Filed: 08/08/18 08:29> ROS Statement: Those systems with pertinent positive or pertinent negative responses have been documented in the HPI. Past Medical History Past Medical History: Cancer, Dementia, Thyroid Disorder Additional Past Medical History / Comment(s): Prostate Cancer, pt states "he was diagnosed 22 years old". pt states "short-term impairment" History of Any Multi-Drug Resistant Organisms: None Reported Additional Past Surgical History / Comment(s): biopsy of prostate. pt states "he had bladder surgery with removal of tumor" Past Anesthesia/Blood Transfusion Reactions: No Reported Reaction Past Psychological History: No Psychological Hx Reported Smoking Status: Former smoker Past Alcohol Use History: None Reported Past Drug Use History: None Reported - Past Family History Mother Family Medical History: Cancer Additional Family Medical History / Comment(s): Breast Cancer. Father Family Medical History: Myocardial Infarction ([place]) <Ingris Roger M - Last Filed: 08/08/18 04:41> General Exam Limitations: no limitations General appearance: alert, in no apparent distress, other (This is a well- developed, well-nourished elderly male patient in no acute distress. Vital signs upon presentation are temperature 97.6F, pulse 83, respirations 20, blood pressure 123/66, pulse ox 98% on room air.) Eye exam: Present: normal appearance, PERRL, EOMI. Absent: scleral icterus, conjunctival injection, periorbital swelling ENT exam: Present: normal exam, normal oropharynx, mucous membranes moist Respiratory exam: Present: normal lung sounds bilaterally. Absent: respiratory distress, wheezes, rales, rhonchi, stridor Cardiovascular Exam: Present: regular rate, normal rhythm, normal heart sounds. Absent: systolic murmur, diastolic murmur, rubs, gallop, clicks GI/Abdominal exam: Present: soft, tenderness (Mild suprapubic), normal bowel sounds. Absent: distended, guarding, rebound, rigid exam: Present: other (Patient has Johnson catheter inserted. There is some mild bloody drainage around catheter. No testicular swelling. Urine shows gross hematuria) Neurological exam: Present: alert, oriented X3, CN II-XII intact Psychiatric exam: Present: normal affect, normal mood Skin exam: Present: warm, dry, intact, normal color. Absent: rash <Ingris Roger M - Last Filed: 08/08/18 04:41> Vital Signs 08/07/18 08/08/18 23:57 02:55 Temperature 97.6 F 97.9 F Pulse Rate 83 77 Respiratory 20 18 Rate Blood Pressure 123/66 124/60 O2 Sat by Pulse 98 98 Oximetry Medical Decision Making <Ingris Roger M - Last Filed: 08/08/18 04:41> <Carey Matamoros - Last Filed: 08/08/18 08:29> - Medical Decision Making 87-year-old male patient presented to the emergency department today for evaluation of occluded Johnson catheter. Physical examination did reveal some mild suprapubic tenderness. Catheter was irrigated and did have return of flow. Patient had a bladder scan after irrigation which showed no urine present in the bladder. Patient is feeling better. He'll be discharged home to follow-up with his urologist. Return parameters discussed in detail. He verbalizes understanding and agrees with this plan. (Ingris Roger) I was available for consultation in the emergency department. The history and physical exam were done by the midlevel provider. I was consulted for this patient's care. I reviewed the case with the midlevel provider and based on their presentation of the patient, I agree with the assessment, medical decision making and plan of care as documented. (Carey Matamoros) Disposition Is patient prescribed a controlled substance at d/c from ED?: No Time of Disposition: 02:13 <Ingris Roger - Last Filed: 08/08/18 04:41> <Carey Matamoros - Last Filed: 08/08/18 08:29> Clinical Impression: Johnson catheter problem Disposition: HOME SELF-CARE Condition: Good Instructions: Johnson Catheter Placement and Care (ED) Additional Instructions: Follow-up with urology for recheck as soon as possible. Increase fluids. Return immediately if he develops any new, worsening, or concerning symptoms. Referrals: Jose Moreno MD [Primary Care Provider] - 1-2 days
[2018-08-08 02:58] VITALS: BP 124/60; PULSE 77; RESP 18; TEMP 97.9
== END 2018-08-08 02:58 | disposition home or self-care (01) ==
LOC: EC 23:54
DX: T83.098A Other mechanical complication of other urinary catheter, initial encounter (principal); R31.0 Gross hematuria; E07.9 Disorder of thyroid, unspecified; Z87.891 Personal history of nicotine dependence; Z79.899 Other long term (current) drug therapy; Z85.46 Personal history of malignant neoplasm of prostate; Z90.79 Acquired absence of other genital organ(s)
CPT/HCPCS: 51798; 99283

== ENCOUNTER 2018-08-12 10:52 | Emergency (ER) | payer MEDICARE, BC ==
[2018-08-12 11:02] VITALS: BP 117/60; PULSE 74; RESP 18; TEMP 97.6
--- NOTE | 2018-08-12 11:17 | ED ---
General Adult HPI - General Chief complaint: Urogenital Stated complaint: URINE RETENTION, POST OP Time Seen by Provider: 08/12/18 11:04 Source: patient Mode of arrival: ambulatory Limitations: no limitations - History of Present Illness Initial comments: Patient is an 87-year-old male presents with a chief complaint of urinary retention. The patient had a TURP procedure performed last Tuesday, and had the Johnson removed on . The patient states that he was doing fine initially however he has now started retaining urine. He was sent to the emergency department by his urologist for a Johnson catheter insertion. Patient states that during his hospital stay, he dealt with hyperkalemia. Patient states he does not have any other symptoms at this time. He denies any fever, chills, abdominal pain, chest pain, or palpitations. - Related Data Home Medications Medication Instructions Recorded Confirmed Levothyroxine Sodium 75 mcg PO DAILY 07/14/18 08/08/18 Atenolol 25 mg PO DAILY 07/19/18 08/08/18 Ciprofloxacin HCl [Cipro] 500 mg PO BID 08/04/18 08/08/18 Allergies Allergy/AdvReac Type Severity Reaction Status Date / Time No Known Allergies Allergy Verified 08/12/18 11:01 Review of Systems ROS Statement: Those systems with pertinent positive or pertinent negative responses have been documented in the HPI. ROS Other: All systems not noted in ROS Statement are negative. Genitourinary: Reports: urgency, dysuria, frequency Past Medical History Past Medical History: Cancer, Dementia, Thyroid Disorder Additional Past Medical History / Comment(s): Prostate Cancer, pt states "he was diagnosed 22 years old". pt states "short-term impairment" History of Any Multi-Drug Resistant Organisms: None Reported Additional Past Surgical History / Comment(s): biopsy of prostate. pt states "he had bladder surgery with removal of tumor". TURP Past Anesthesia/Blood Transfusion Reactions: No Reported Reaction Past Psychological History: No Psychological Hx Reported Smoking Status: Former smoker Past Alcohol Use History: None Reported Past Drug Use History: None Reported - Past Family History Mother Family Medical History: Cancer Additional Family Medical History / Comment(s): Breast Cancer. Father Family Medical History: Myocardial Infarction ([place]) General Exam Limitations: no limitations General appearance: alert, in no apparent distress Head exam: Present: atraumatic, normocephalic Eye exam: Present: normal appearance ENT exam: Present: normal exam, mucous membranes moist Neck exam: Present: tenderness Respiratory exam: Present: normal lung sounds bilaterally, respiratory distress Cardiovascular Exam: Present: regular rate, normal rhythm GI/Abdominal exam: Present: soft. Absent: distended, tenderness Rectal exam: Present: deferred exam: Present: normal inspection Extremities exam: Present: normal inspection Back exam: Present: normal inspection Neurological exam: Present: alert, oriented X3 Psychiatric exam: Present: normal affect, normal mood Skin exam: Present: warm, dry, intact Course Vital Signs 08/12/18 10:58 Temperature 97.6 F Pulse Rate 74 Respiratory 18 Rate Blood Pressure 117/60 O2 Sat by Pulse 100 Oximetry Medical Decision Making - Medical Decision Making Patient presents with a chief complaint of urinary retention status post TURP last Tuesday. On initial evaluation, vitals are stable, patient is in no acute distress. Patient will have a Johnson catheter placed, urinalysis ordered. We' ll check EKG given patient's history of hyperkalemia. 11:43 AM Johnson catheter inserted, return of a little over 100 mL of urine, blood-tinged. Patient now stating that he tripped on a rug 2 days ago and stubbed his third and fourth toe on the right. Patient has mild swelling of the right lower extremity. I discussed the possibility of a blood clot given his recent hospitalization the patient would not like to undergo further testing. He states that he will follow-up with his primary care doctor. Patient was given explicit signs and symptoms that should prompt immediate return for further evaluation. He verbalizes understanding. Currently pending EKG, otherwise patient stable for discharge and follow-up. Patient currently on ciprofloxacin prophylactically, we'll not need further antibiotics. 11:48 AM EKG performed at 1146 shows sinus bradycardia with a rate of 58 bpm. EKG concerning for peak T waves. I discussed this with the patient and stated that it may be a sign of hyperkalemia. I urged the patient to stay for further testing however he is reluctant and states he wants to leave. At this time, patient will be discharged AGAINST MEDICAL ADVICE. I discussed the possibility of an adverse outcome up to and including , the patient has decision- making capacity at this time. He was instructed that he can return to the emergency department for further testing at any time. Disposition Clinical Impression: Urinary retention Disposition: Left Against Medical Advice Condition: Good Instructions: Johnson Catheter Placement and Care (ED) Is patient prescribed a controlled substance at d/c from ED?: No Referrals: Jose Moreno MD [Primary Care Provider] - 1-2 days
[2018-08-12 11:51] LABS: Amorphous Sediment,Urine Rare /hpf; Appearance,Urine Cloudy (Clear); Bilirubin,Urine Negative (Negative); Blood,Urine Large (Negative); Color,Urine Red; Glucose,Urine (UA) Negative (Negative); Ketones,Urine Negative (Negative); Leukocyte Esterase,Urine Moderate (Negative); Nitrite,Urine Negative (Negative); PH, Urine 5.5 (5.0-8.0); Protein,Urine 2+ (Negative); RBC,Urine >182 /hpf (0-5); Specific Gravity,Urine 1.014 (1.001-1.035); Squamous Epithelial Cell,Urine 2 /hpf (0-4); Urobilinogen,Urine <2.0 mg/dL (<2.0)
== END 2018-08-12 11:58 | disposition left against medical advice (07) ==
LOC: EC 10:52
DX: N99.89 Other postprocedural complications and disorders of genitourinary system (principal); R33.9 Retention of urine, unspecified; R00.1 Bradycardia, unspecified; E07.9 Disorder of thyroid, unspecified; Z85.46 Personal history of malignant neoplasm of prostate; Z87.891 Personal history of nicotine dependence; Z98.890 Other specified postprocedural states; Z79.899 Other long term (current) drug therapy; Z53.29 Procedure and treatment not carried out because of patient's decision for other reasons
CPT/HCPCS: 51702; 81001; 87086; 93005; 99283

== ENCOUNTER → 2019-09-18 | Outpatient (CLI) | payer MEDICARE, BC | END | disposition home or self-care (01) | LOC: LABWHC1 08:01 | PROVIDERS: ATTEND Urology | DX: C61 Malignant neoplasm of prostate (principal) | CPT/HCPCS: 36415; 84153 ==

== ENCOUNTER → 2019-11-27 | Outpatient (CLI) | payer MEDICARE, BC ==
--- NOTE | 2019-11-27 14:36 | NM ---
EXAMINATION TYPE: NM bone scan whole body DATE OF EXAM: 11/27/2019 COMPARISON: CT dated 08/05/2018 and bone scan dated 07/24/2018. HISTORY: Prostate cancer. Abnormal MRI. Delayed whole-body scanning was performed following the injection of 20.2 mCi Tc 99m MDP. Images acq uired 3.5 hours post injection. FINDINGS: There is progression of intensity and size of the focal abnormal uptake within the pubic ra mi including the bilateral superior pubic rami and right inferior pubic ramus. There is also abnormal radiotracer uptake of the right pedicle of T11.Correlated with the outside MRI there is abnormal bon e marrow signal of these regions. When correlated with the CT there is osteolytic change, particularl y in the left pubic bone. IMPRESSION: Findings highly suspicious for osseous metastasis with increased size and distribution of the bilateral pubic bone uptake, abnormal bone marrow signal on the outside MRI, and lytic permeativ e lucencies on the prior CT. Additionally there is a focus of abnormal radiotracer uptake in the pedi sujatha of T11 on the right.
== END | disposition home or self-care (01) ==
LOC: RADNMMAIN 10:09
PROVIDERS: ATTEND Internal Medicine Hematology & Oncology
DX: C61 Malignant neoplasm of prostate (principal)
CPT/HCPCS: 78306; A9503

== ENCOUNTER → 2019-11-28 | Outpatient (CLI) | payer MEDICARE, BC ==
--- NOTE | 2019-11-29 05:35 | CT ---
EXAMINATION TYPE: CT ChestAbdPelvis wo con DATE OF EXAM: 11/28/2019 COMPARISON: Nuclear medicine whole body bone scan 11/27/2019, CT abdomen and pelvis 08/05/2018, and lef t hip MRI 10/18/2019 HISTORY: 89-year-old male follow-up prostate ca TECHNIQUE: Contiguous axial scanning of the chest, abdomen, and pelvis without IV contrast. Coronal a nd sagittal reconstructions performed. CT DLP: 554.5 mGycm Automated exposure control for dose reduction was used. FINDINGS: CHEST: The heart is upper limits of normal in size with scattered LAD coronary artery calcifications. Ascending aorta mildly aneurysmal at 4.0 cm. Conventional vessel branching anatomy. Aneurysmal upper descending thoracic aorta 4.0 cm. Aneurysmal mid descending thoracic aorta 4.2 cm. Fusiform aneurysm distal abdominal aorta at 4.7 cm. Large caliber to the main right and left pulmonary arteries 4.0 3.57 m, respectively, suggesting unde rlying pulmonary arterial hypertension. Trace bilateral gynecomastia. No thoracic lymphadenopathy by CT size criteria. Strandy areas of atelectasis and scarring in the lower lungs with underlying moderate centrilobular e mphysema. 3 mm peripheral right midlung pulmonary nodule, axial image 36 can be reassessed in 6 months. Benign calcified granuloma right mid lung just adjacent. Additional small calcified granulomas versus calcified lymph nodes at the right hilum, axial image 34 . Biapical pleural parenchymal scarring. No consolidation or pleural effusion. ABDOMEN: Upper abdominal aorta mildly aneurysmal 3.1 cm. Ectatic distal abdominal aorta at 2.5 cm. A 1.2 cm hypodense lesion centrally at the hepatic dome is unchanged from 08/05/2018 compatible with a benign cyst. A calcified granuloma inferior right liver lobe. A couple additional subcentimeter hypodensities segm ent 6 inferior right liver lobe, axial image 69 remain unchanged from 2018 as well suggesting benign cysts. No decrease sensitivity due to lack of IV contrast. Noncontrast appearance of the gallbladder, right adrenal gland, spleen, and pancreas shows no gross a bnormal body. Stable nodular thickening of the left adrenal gland. Stable 2.7 cm cyst within the right kidney. Numerous lesions are present within the left kidney some of which are too small fractured CT characte rization and some of which are inadequately characterized on this noncontrast study. The largest is a cyst measuring 6.2 cm versus 5.8 cm, previously. At least one contains either hemorrhagic or protein aceous debris and was present back in 2018, currently measuring 9 mm. 2.0 cm nodularity at the renal sinus is unchanged. Given stability, this likely represents parapelvic cysts versus extrarenal pelvis. Soft tissue nodularity measuring 1.1 cm inferior to the spleen interposed between the spleen and left kidney, axial image 72 was present on 08/05/2018 as well suggesting a benign splenule rather than per itoneal deposit. Scattered nonenlarged and borderline sized mesenteric lymph nodes measuring up to 6 mm remain unchang ed. No increasing retroperitoneal lymphadenopathy. Surgical material within the right paramedian mesentery. Some some subtle patchy increased soft tissue density within the lower mid mesentery, axial images 95 and 96 and a mildly enlarged mid mesenteric lymph node at 1.1 cm versus 9 mm, previously on axial im age 89 are noted. No dilated small bowel, free fluid, or free air. Normal appendix. Oral contrast progressed into the cecum. Moderate stool burden. No pericolonic infla mmatory change. PELVIS: Bladder urine distended. Prostate gland is much smaller now and 3.2 cm wide versus 5.4 cm wide, previ ously. Patulous bilateral inguinal canals. No abnormal fluid collection in the pelvis or pelvic lymph adenopathy seen. BONES: Permeative lucencies within the bilateral superior pubic rami, pubic bodies, and left inferior pubic ramus. There are larger areas of lytic destruction involving the left pubic body, a pathologic, nondi splaced fracture left superior pubic ramus, and a soft tissue component measuring up to 4.7 cm along the inferior aspect of the left pubic body. Soft tissue component estimated at 3.2 cm on 08/05/2018. C hanges progressed from 08/05/2018. Degenerative changes of the hips and SI joints. Sclerotic focus within the left posterior L2 vertebral body is unchanged. No discrete CT abnormality seen along the right T11 posterior elements at the site of additional bone scan abnormality. IMPRESSION: 1. PROSTATE GLAND SMALLER NOW COMPARED TO 08/05/2018 SUGGESTING INTERVAL TREATMENT. 2. A MILDLY ENLARGED MID MESENTERIC LYMPH NODE AT 1.1 CM VERSUS 9 MM ON 08/05/2018 IS NONSPECIFIC. MIN IMAL INCREASE IN 1 YEAR 4 MONTHS. THERE IS ALSO SOME SUBTLE INCREASED PATCHY SOFT TISSUE DENSITY WITH IN THE LOWER MID MESENTERY (AXIAL IMAGE 95 AND 96). BOTH OF THESE FINDINGS SHOULD BE REASSESSED AT ORT INTERVAL FOLLOW-UP TO EXCLUDE EARLY MESENTERIC METASTASES. 3. PERMEATIVE LUCENCIES WITHIN THE LEFT GREATER THAN RIGHT PUBIC BONES CORRESPONDING TO ABNORMAL RADI OTRACER ACTIVITY ON 11/27/2019 BONE SCAN. ON THE LEFT, THIS IS ASSOCIATED WITH A DESTRUCTIVE 4.7 CM SO FT TISSUE COMPONENT. FINDINGS SUGGEST NEOPLASTIC INVOLVEMENT. THE SOFT TISSUE COMPONENT PREVIOUSLY ME ASURED 3.2 CM ON 08/05/2018. OVERALL FINDINGS PROGRESSED FROM THAT TIME. ASSOCIATED NONDISPLACED PATHO LOGIC FRACTURE SUPERIOR LEFT PUBIC RAMUS. 4. NO DISCRETE CT ABNORMALITY FOR THE FOCAL INCREASED UPTAKE ALONG THE RIGHT T11 POSTERIOR ELEMENTS. OCCULT OSSEOUS METASTATIC DISEASE NOT EXCLUDED. 5. A 3 MM NONSPECIFIC RIGHT MID LUNG PULMONARY NODULE. PROBABLY RELATING TO PRIOR GRANULOMATOUS DISEA SE. ATTENTION ON FOLLOW-UP. 6. DIFFUSELY ANEURYSMAL AORTA (ASCENDING 4.0 CM, DESCENDING 4.7 CM, AND UPPER ABDOMINAL 3.1 CM). 7. COPD WITH MODERATE EMPHYSEMA. UNDERLYING PULMONARY HYPERTENSION ALSO SUGGESTED.
== END | disposition home or self-care (01) ==
LOC: RADCTMAIN 14:43
PROVIDERS: ATTEND Internal Medicine Hematology & Oncology
DX: S32.502A Unspecified fracture of left pubis, initial encounter for closed fracture (principal); J43.9 Emphysema, unspecified; I71.9 Aortic aneurysm of unspecified site, without rupture; C61 Malignant neoplasm of prostate; R91.1 Solitary pulmonary nodule; R93.89 Abnormal findings on diagnostic imaging of other specified body structures
CPT/HCPCS: 36415; 71250; 74176; 82565; 84520

== ENCOUNTER → 2019-11-30 | Day surgery (SDC) | payer MEDICARE, BC ==
[2019-11-30 09:25] VITALS: TEMP 97.8
[2019-11-30 11:33] VITALS: RESP 16
--- NOTE | 2019-11-30 12:11 | US ---
ULTRASOUND GUIDED CORE BIOPSY LEFT PUBIC MASS: CLINICAL HISTORY: Destructive left pubic lesion FINDINGS: Preprocedural ultrasound did not demonstrate the area of concern ideally and the procedure was moved to CT scan. IMPRESSION: 1. Ultrasound procedure moved to CT scan.
[2019-11-30 12:15] VITALS: BP 159/78; PULSE 62
--- NOTE | 2019-11-30 12:22 | CT ---
EXAMINATION TYPE: CT biopsy bone superficial DATE OF EXAM: 11/30/2019 COMPARISON: 11/28/2019 HISTORY: Left pubic bone lesion CT DLP: 557 mGycm The procedure is discussed with the patient, the risks, complications, benefits and alternatives, wer e discussed and any questions were answered. Informed consent was obtained. The patient is placed s upine on the CT table, prepped and draped in the usual sterile fashion. Utilizing a 18-gauge core biopsy needle access into the left pubic mass was achieved with 2 samples o btained. Pathology pending. All elements of maximal barrier and sterile technique were utilized. T he patient remained stable throughout the procedure with no immediate postprocedural complication. IMPRESSION: 1. Successful CT guided core biopsy of the left pubic bone mass
== END ==
LOC: RADPROMAIN 08:45
PROVIDERS: ATTEND Internal Medicine Hematology & Oncology
DX: C41.4 Malignant neoplasm of pelvic bones, sacrum and coccyx (principal); C61 Malignant neoplasm of prostate
CPT/HCPCS: 20220; 76536; 77012; 88305; 88341; 88342

== ENCOUNTER → 2020-04-30 | Outpatient (CLI) | payer MEDICARE, BC ==
--- NOTE | 2020-04-30 15:12 | NM ---
EXAMINATION TYPE: NM bone scan whole body DATE OF EXAM: 04/30/2020 COMPARISON: 11/27/2019 HISTORY: 89-year-old male history of prostate cancer, pelvic pain and right flank pain. TECHNIQUE: Delayed whole-body scanning was performed following the injection of 22.5 mCi Tc 99m MDP. Images acquired 3.5 hours post injection. FINDINGS: Abnormal activity involving the right-sided posterior elements of the T11 vertebral body. Extensive abnormal activity involving the pubic bodies and superior pubic rami. Degenerative tracer activity at the shoulders, sternoclavicular joints, right knee, and right foot. 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
== END | disposition home or self-care (01) ==
LOC: RADNMMAIN 10:13
PROVIDERS: ATTEND Internal Medicine Hematology & Oncology
DX: C79.51 Secondary malignant neoplasm of bone (principal); C61 Malignant neoplasm of prostate
CPT/HCPCS: 78306; A9503

== ENCOUNTER → 2020-08-01 | Outpatient (CLI) | payer MEDICARE, BC ==
--- NOTE | 2020-08-01 14:10 | CT ---
EXAMINATION TYPE: CT ChestAbdPelvis wo con DATE OF EXAM: 08/01/2020 COMPARISON: CT chest abdomen pelvis 11/28/2019. Nuclear medicine bone scan 04/30/2020. HISTORY: Prostate cancer with bone mets CT DLP: 515.60 mGycm. Automated Exposure Control for Dose Reduction was Utilized. TECHNIQUE: CT scan of the thorax, abdomen and pelvis is performed without IV contrast, and with oral contrast. FINDINGS: LUNGS: Emphysema. Right perifissural calcified granuloma redemonstrated. No concerning parenchymal ma ss or nodule identified. No pleural effusion. No pneumothorax. The tracheobronchial tree is patent. MEDIASTINUM/SOFT TISSUES: No axillary, hilar, or mediastinal lymphadenopathy greater than 1 cm. Cardi ac size is normal. Calcified coronary artery disease. No pericardial effusion. Ascending thoracic aor ta is nonaneurysmal and measures up to 3.8 cm, unchanged versus 11/28/2019. Descending thoracic aortic aneurysm measures up to 4.7 cm, unchanged versus 11/28/2019. LIVER: Redemonstrated hepatic cyst and too small to characterize hypodense lesions. BILIARY SYSTEM: No intrahepatic or extrahepatic biliary ductal dilatation. PANCREAS: No peripancreatic stranding or fluid collection. SPLEEN: Not enlarged. ADRENALS: Unchanged thickening of the left adrenal gland. Right adrenal gland normal. KIDNEYS: Redemonstrated cysts and too small to characterize lesions of the bilateral kidneys. No hydr onephrosis. BOWEL: Colonic diverticulosis. No acute diverticulitis. Within the right lower quadrant distal ileum there is approximately 10 cm of continuous circumferential wall thickening (6:21) measuring up to 8 mm (3:102), which superiorly demonstrates soft tissue shouldering within the prominent small bowel myra men measuring up to approximately 2.6 x 2.3 cm (3:91). PERITONEUM: No pneumoperitoneum. No free fluid. LYMPH NODES: No lymphadenopathy. PELVIS: Unchanged unenhanced appearance of the prostate. Normal unenhanced appearance of the urinary bladder. VASCULATURE: Borderline proximal abdominal aortic aneurysm measures 3.0 cm. MUSCULOSKELETAL: Redemonstrated permeative lytic lesions of the pubic symphysis and left inferior pu bic ramus. The left inferior pubic ramus demonstrates expansile osteolytic lesion with soft tissue co mponent measuring up to approximately 6.1 x 4.9 cm, not significantly changed versus 11/28/2019, and i ncreased from 08/05/2018. Redemonstrated sclerotic focus of L2. There is subtle increased sclerosis of T12 and T11 vertebral bodies, likely metastatic disease. IMPRESSION: 1. No evidence of metastatic prostate cancer of the chest. 2. Right lower quadrant distal ileum demonstrates 10 cm segment of circumferential wall thickening me asuring up to 8 mm, which demonstrates soft tissue masslike appearance more superiorly up to 2.6 x 2. 3 cm, new from 11/28/2019. Wide differential includes infectious or inflammatory bowel disease, primar y neoplasm, or metastatic disease. 3. Increased subtle sclerosis of the T12 and T11 vertebral bodies, likely new/increasing metastatic p rostate cancer. Other osseous lesions unchanged. 4. Distal descending thoracic aortic aneurysm measures up to 4.7 cm, unchanged versus 11/28/2019.
--- NOTE | 2020-08-01 18:10 | NM ---
EXAMINATION TYPE: NM bone scan whole body DATE OF EXAM: 08/01/2020 COMPARISON: 04/30/2020 HISTORY: Lumbar pain, prostate cancer history Delayed whole-body scanning was performed following the injection of 25.3 mCi Tc 99m MDP. Images acq uired 3 hours post injection. FINDINGS: There is increased radiotracer accumulation within the region of T11. This was previously on the righ t. This is extended across the midline at this time. This can be compatible with metastasis. Radiotracer accumulation within the right proximal foot is similar to comparison. There is intense activity within the fascial rami on greater on the right than the left. There is lik zbigniew some pubic symphysis activity on the left. This was present previously and can be compatible with metastasis. IMPRESSION: 1. Radiotracer accumulation within the anterior pelvis compatible with metastasis. 2. Uptake within the T11 level was present on the right but now crosses the midline.
== END | disposition home or self-care (01) ==
LOC: RADCTMAIN 06:56
PROVIDERS: ATTEND Internal Medicine Hematology & Oncology
DX: I71.2 Thoracic aortic aneurysm, without rupture (principal); M79.89 Other specified soft tissue disorders; C79.51 Secondary malignant neoplasm of bone
CPT/HCPCS: 82565; 84520; 71250; 74176; 78306; A9503

== ENCOUNTER 2020-12-10 14:00 | Emergency (ER) | payer MEDICARE, BC ==
[2020-12-10 14:07] VITALS: TEMP 97.6
--- NOTE | 2020-12-10 14:27 | ED ---
SOB HPI - General Chief Complaint: Shortness of Breath Stated Complaint: SOB-Sent by pcp Time Seen by Provider: 12/10/20 14:08 Source: patient Mode of arrival: wheelchair Limitations: no limitations - History of Present Illness Initial Comments: 89yo male presenting today for cc of dyspnea 2 weeks. Patient states that he has had shortness of breath for the past 2 weeks. He states it worsens with ambulation he states his legs have appeared slightly swollen equal bilaterally denies unilateral leg swelling calf pain he denies any chest pain pressure jaw pain arm pain diaphoresis or pain at the comfort inspiration. He denies hemoptysis recent surgical procedures. Patient states he does have prostate cancer. Patient denies any nausea or vomiting dark stools bloody stools, palpitations. She denies any current active anticoagulation therapy. Remaining review of systems negative upon arrival patient appears well nontoxic in no acute distress. - Related Data Home Medications Medication Instructions Recorded Confirmed atenoloL [Atenolol] 25 mg PO DAILY 07/19/18 12/10/20 Imipramine [Tofranil] 10 mg PO TID 11/23/19 12/10/20 Aspirin [Adult Low Dose Aspirin EC] 81 mg PO DAILY 11/30/19 12/10/20 Multivitamins, Thera [Multivitamin 1 tab PO DAILY 11/30/19 12/10/20 (formulary)] Calcium 600mg W/Vitamin D3 1 tab PO DAILY 12/10/20 12/10/20 Docusate [Colace] 100 mg PO DAILY PRN 12/10/20 12/10/20 Levothyroxine Sodium [Synthroid] 88 mcg PO DAILY 12/10/20 12/10/20 Meclizine [Antivert] 25 mg PO TID 12/10/20 12/10/20 Vitamin E 400 unit PO DAILY 12/10/20 12/10/20 Allergies Allergy/AdvReac Type Severity Reaction Status Date / Time No Known Allergies Allergy Verified 12/10/20 15:05 Review of Systems ROS Statement: Those systems with pertinent positive or pertinent negative responses have been documented in the HPI. ROS Other: All systems not noted in ROS Statement are negative. Past Medical History Past Medical History: Cancer, Thyroid Disorder Additional Past Medical History / Comment(s): Prostate Cancer, pt states "he was diagnosed 20 years ago". pt states "short-term impairment" History of Any Multi-Drug Resistant Organisms: None Reported Past Surgical History: Orthopedic Surgery Additional Past Surgical History / Comment(s): right shoulder rotator cuff repair. biopsy of prostate. pt states "he had bladder surgery with removal of tumor". TURP Past Anesthesia/Blood Transfusion Reactions: No Reported Reaction Past Psychological History: No Psychological Hx Reported Smoking Status: Never smoker Past Alcohol Use History: None Reported Past Drug Use History: None Reported - Past Family History Mother Family Medical History: Cancer Additional Family Medical History / Comment(s): Breast Cancer. Father Family Medical History: Myocardial Infarction ([place]) General Exam - General Exam Comments Initial Comments: General: The patient is awake and alert, in no distress, and does not appear acutely ill. Eye: Pupils are equal, round and reactive to light, extra-ocular movements are intact. No nystagmus. There is normal conjunctiva bilaterally. No signs of icterus. Ears, nose, mouth and throat: There are moist mucous membranes and no oral lesions. Neck: The neck is supple, there is no tenderness or JVD. Cardiovascular: There is a regular rate and rhythm. No murmur, rub or gallop is appreciated. Respiratory: Lungs are clear to auscultation, respirations are non-labored, breath sounds are equal. No wheezes, stridor, rales, or rhonchi. Gastrointestinal: Soft, non-distended, non-tender abdomen without masses or organomegaly noted. There is no rebound or guarding present. Musculoskeletal: Normal ROM, no tenderness. Strength 5/5. Sensation intact. Radial and DP pulses equal bilaterally 2+. Neurological: A&O x 3. CN II-XII intact, There are no obvious motor or sensory deficits. Coordination appears grossly intact. Speech is normal. Skin: Skin is warm and dry and no rashes or lesions are noted. Lower extremity edema appreciated no calf pain or swelling Psychiatric: Cooperative, appropriate mood & affect, normal judgment. Limitations: no limitations Course Vital Signs 12/10/20 12/10/20 12/10/20 14:03 14:07 14:47 Temperature 97.6 F Pulse Rate 85 72 Respiratory 22 18 18 Rate Blood Pressure 135/79 O2 Sat by Pulse 79 L 100 Oximetry 12/10/20 12/10/20 12/10/20 15:07 16:00 17:00 Temperature Pulse Rate 78 77 83 Respiratory 18 18 18 Rate Blood Pressure 131/76 125/66 O2 Sat by Pulse 97 97 97 Oximetry 12/10/20 12/10/20 18:00 20:05 Temperature Pulse Rate 109 H 92 Respiratory 18 Rate Blood Pressure 128/69 O2 Sat by Pulse 97 Oximetry - Reevaluation(s) Reevaluation #1: Initial reading in triage was 79% however his hands are cold to touch b/l and on oximeter in room he had no wave form. Earlobe oximeter in 90s. Patient does not appear in distress at all and I feel the initial oxygen saturation was incorrect. Medical Decision Making - Medical Decision Making Labs stable. Cr slightly increased. Pt was not hypoxic with good wave form on RA in the ER. His hand were cold and difficulty to get appropriate wave form on all 5 digits of both hands, therefore earlobe with pediatric oximeter was used. patient CXR clear. BNP within expected range for age. Patient troponin negative d-dimer slightly elevated V/Q low suspicion for pulmonary embolism. She states that he would like to go home and is feeling better. Patient is lying flat without difficulty in room. Discussed the case with attending provider we are comfortable discharge with primary care outpatient f/u. - Lab Data Result diagrams: 12/10/20 14:31 12/10/20 15:47 Lab Results 12/10/20 12/10/20 12/10/20 Range/Units 14:31 14:31 14:31 WBC 7.8 (3.8-10.6) k/uL RBC 4.28 L (4.30-5.90) m/uL Hgb 12.6 L (13.0-17.5) gm/dL Hct 37.7 L (39.0-53.0) % MCV 88.0 (80.0-100.0) fL MCH 29.4 (25.0-35.0) pg MCHC 33.4 (31.0-37.0) g/dL RDW 14.0 (11.5-15.5) % Plt Count 247 (150-450) k/uL MPV 8.0 Neutrophils % 66 % Lymphocytes % 21 % Monocytes % 8 % Eosinophils % 2 % Basophils % 0 % Neutrophils # 5.2 (1.3-7.7) k/uL Lymphocytes # 1.7 (1.0-4.8) k/uL Monocytes # 0.6 (0-1.0) k/uL Eosinophils # 0.2 (0-0.7) k/uL Basophils # 0.0 (0-0.2) k/uL Manual Slide Review Performed Poikilocytosis (manual Present PT (9.0-12.0) sec INR (<1.2) APTT (22.0-30.0) sec D-Dimer (<0.60) mg/L FEU Sodium 138 (137-145) mmol/L Potassium 5.9 H (3.5-5.1) mmol/L Chloride 107 (98-107) mmol/L Carbon Dioxide 20 L (22-30) mmol/L Anion Gap 11 mmol/L BUN 54 H (9-20) mg/dL Creatinine 2.39 H (0.66-1.25) mg/dL Est GFR (CKD-EPI)AfAm 27 (>60 ml/min/1.73 sqM) Est GFR (CKD-EPI)NonAf 23 (>60 ml/min/1.73 sqM) Glucose 106 H (74-99) mg/dL Plasma Lactic Acid Mitesh 1.7 (0.7-2.0) mmol/L Calcium 10.0 (8.4-10.2) mg/dL Magnesium 2.0 (1.6-2.3) mg/dL Total Bilirubin 0.8 (0.2-1.3) mg/dL AST 39 (17-59) U/L ALT 13 (4-49) U/L Alkaline Phosphatase 48 (38-126) U/L Troponin I (0.000-0.034) ng/mL NT-Pro-B Natriuret Pep pg/mL Total Protein 7.4 (6.3-8.2) g/dL Albumin 4.2 (3.5-5.0) g/dL Coronavirus (PCR) (Not Detectd) 12/10/20 12/10/20 12/10/20 Range/Units 14:31 14:31 14:31 WBC (3.8-10.6) k/uL RBC (4.30-5.90) m/uL Hgb (13.0-17.5) gm/dL Hct (39.0-53.0) % MCV (80.0-100.0) fL MCH (25.0-35.0) pg MCHC (31.0-37.0) g/dL RDW (11.5-15.5) % Plt Count (150-450) k/uL MPV Neutrophils % % Lymphocytes % % Monocytes % % Eosinophils % % Basophils % % Neutrophils # (1.3-7.7) k/uL Lymphocytes # (1.0-4.8) k/uL Monocytes # (0-1.0) k/uL Eosinophils # (0-0.7) k/uL Basophils # (0-0.2) k/uL Manual Slide Review Poikilocytosis (manual PT (9.0-12.0) sec INR (<1.2) APTT (22.0-30.0) sec D-Dimer (<0.60) mg/L FEU Sodium (137-145) mmol/L Potassium (3.5-5.1) mmol/L Chloride (98-107) mmol/L Carbon Dioxide (22-30) mmol/L Anion Gap mmol/L BUN (9-20) mg/dL Creatinine (0.66-1.25) mg/dL Est GFR (CKD-EPI)AfAm (>60 ml/min/1.73 sqM) Est GFR (CKD-EPI)NonAf (>60 ml/min/1.73 sqM) Glucose (74-99) mg/dL Plasma Lactic Acid Mitesh (0.7-2.0) mmol/L Calcium (8.4-10.2) mg/dL Magnesium (1.6-2.3) mg/dL Total Bilirubin (0.2-1.3) mg/dL AST (17-59) U/L ALT (4-49) U/L Alkaline Phosphatase (38-126) U/L Troponin I <0.012 (0.000-0.034) ng/mL NT-Pro-B Natriuret Pep 1120 pg/mL Total Protein (6.3-8.2) g/dL Albumin (3.5-5.0) g/dL Coronavirus (PCR) Not Detected (Not Detectd) 12/10/20 12/10/20 Range/Units 15:47 16:12 WBC (3.8-10.6) k/uL RBC (4.30-5.90) m/uL Hgb (13.0-17.5) gm/dL Hct (39.0-53.0) % MCV (80.0-100.0) fL MCH (25.0-35.0) pg MCHC (31.0-37.0) g/dL RDW (11.5-15.5) % Plt Count (150-450) k/uL MPV Neutrophils % % Lymphocytes % % Monocytes % % Eosinophils % % Basophils % % Neutrophils # (1.3-7.7) k/uL Lymphocytes # (1.0-4.8) k/uL Monocytes # (0-1.0) k/uL Eosinophils # (0-0.7) k/uL Basophils # (0-0.2) k/uL Manual Slide Review Poikilocytosis (manual PT 9.9 (9.0-12.0) sec INR 0.9 (<1.2) APTT 18.0 L (22.0-30.0) sec D-Dimer 1.29 H (<0.60) mg/L FEU Sodium (137-145) mmol/L Potassium 5.8 H (3.5-5.1) mmol/L Chloride (98-107) mmol/L Carbon Dioxide (22-30) mmol/L Anion Gap mmol/L BUN (9-20) mg/dL Creatinine (0.66-1.25) mg/dL Est GFR (CKD-EPI)AfAm (>60 ml/min/1.73 sqM) Est GFR (CKD-EPI)NonAf (>60 ml/min/1.73 sqM) Glucose (74-99) mg/dL Plasma Lactic Acid Mitesh (0.7-2.0) mmol/L Calcium (8.4-10.2) mg/dL Magnesium (1.6-2.3) mg/dL Total Bilirubin (0.2-1.3) mg/dL AST (17-59) U/L ALT (4-49) U/L Alkaline Phosphatase (38-126) U/L Troponin I (0.000-0.034) ng/mL NT-Pro-B Natriuret Pep pg/mL Total Protein (6.3-8.2) g/dL Albumin (3.5-5.0) g/dL Coronavirus (PCR) (Not Detectd) Disposition Clinical Impression: Dyspnea Disposition: HOME SELF-CARE Condition: Good Additional Instructions: Please use medication as discussed. Please follow-up with family doctor in the next 2 days. Please return to emergency room if the symptoms increase or worsen or for any other concerns. Is patient prescribed a controlled substance at d/c from ED?: No Referrals: Jose Moreno MD [Primary Care Provider] - 1-2 days Time of Disposition: 19:59
[2020-12-10 14:48] VITALS: RESP 18
[2020-12-10 14:53] LABS: Albumin 4.2 g/dL (3.5-5.0); Total Bilirubin 0.8 mg/dL (0.2-1.3); Total Protein 7.4 g/dL (6.3-8.2)
[2020-12-10 14:54] LABS: Basophils % (A) 0 %; Eosinophils # (A) 0.2 k/uL (0-0.7); Eosinophils % (A) 2 %; HCT 37.7 % (39.0-53.0); HGB 12.6 gm/dL (13.0-17.5); Lymphocytes # (A) 1.7 k/uL (1.0-4.8); Lymphocytes % (A) 21 %; MCH 29.4 pg (25.0-35.0); MCHC 33.4 g/dL (31.0-37.0); Monocytes # (A) 0.6 k/uL (0-1.0); Monocytes % (A) 8 %; Neutrophils # (A) 5.2 k/uL (1.3-7.7); Neutrophils % (A) 66 %; Platelet Count 247 k/uL (150-450); RBC 4.28 m/uL (4.30-5.90); WBC 7.8 k/uL (3.8-10.6)
[2020-12-10 15:05] LABS: Potassium 5.9 mmol/L (3.5-5.1)
--- NOTE | 2020-12-10 15:10 | XR ---
EXAMINATION TYPE: XR chest 2V DATE OF EXAM: 12/10/2020 COMPARISON: 09/11/2015 INDICATION: Difficulty breathing TECHNIQUE: Frontal and lateral views of the chest are obtained. FINDINGS: The heart size is normal. The pulmonary vasculature is normal. The lungs are clear. IMPRESSION: 1. No acute pulmonary process.
[2020-12-10 15:17] LABS: Poikilocytosis (M) Present
[2020-12-10] MEDS ORDERED: INSULIN REGULAR 100 UNIT/ML VIAL IV ONE (16:05)
[2020-12-10] MEDS ORDERED: SODIUM CHLORIDE 0.9% 500 ML 500 ML IV ONE (16:08)
[2020-12-10] MEDS ORDERED: DEXTROSE 50% SYRINGE 50 ML IVP STA (16:09)
[2020-12-10] MEDS ORDERED: SODIUM CHLORIDE 0.9% 1,000 ML IV SCH (16:15)
[2020-12-10 17:11] LABS: INR 0.9 (<1.2); Prothrombin Time 9.9 sec (9.0-12.0)
[2020-12-10 17:16] LABS: D-Dimer 1.29 mg/L FEU (<0.60)
[2020-12-10 18:29] VITALS: BP 128/69
--- NOTE | 2020-12-10 19:48 | NM ---
EXAMINATION TYPE: NM pul vent and perfuse DATE OF EXAM: 12/10/2020 COMPARISON: NONE HISTORY: TECHNIQUE: Utilizing inhalation of 68.9 mCi Tc 99m DTPA aerosol and intravenous injection of 5.1 mCi of Tc 99m MAA, ventilation and perfusion images are acquired post injection in multiple projections. FINDINGS: There are small matching ventilation perfusion defects at both lung apices. There is no ventilation/p erfusion mismatch. There is fairly uniform perfusion of both lower lobes. The remainder of exam is un remarkable. IMPRESSION: There is evidence of mild airway disease. There is a low probability of pulmonary embolism.
[2020-12-10 20:54] VITALS: PULSE 92
== END 2020-12-10 20:05 | disposition home or self-care (01) ==
LOC: EC 14:00
DX: R06.00 Dyspnea, unspecified (principal); R06.02 Shortness of breath; Z20.822 Contact with and (suspected) exposure to COVID-19; E07.9 Disorder of thyroid, unspecified; Z79.82 Long term (current) use of aspirin; Z79.890 Hormone replacement therapy; Z79.899 Other long term (current) drug therapy; Z85.46 Personal history of malignant neoplasm of prostate
CPT/HCPCS: 99285 ×2; 96374 ×2; 96361 ×4; 36415; 93005; 85379; 83880; 80053; 83605; 83735; 84132; 84484; 85025; 85610; 85730; 87635; 71046; 78582; A9540; A9567

== ENCOUNTER → 2021-01-01 | Outpatient (CLI) | payer MEDICARE, BC ==
--- NOTE | 2021-01-01 12:24 | CT ---
EXAMINATION TYPE: CT ChestAbdPelvis wo con DATE OF EXAM: 01/01/2021 COMPARISON: 08/01/2020 HISTORY: follow up prostate ca CT DLP: 786.7mGycm Unenhanced CT of the Chest, Abdomen and Pelvis Unenhanced CT of the chest ,abdomen and pelvis is performed. The lack of intravenous contrast limits evaluation of the solid and hollow viscera. Oral contrast: Yes CT Chest: LUNGS: The lungs are clear and free of infiltrate or atelectasis. Pulmonary nodules are identified right upper lobe image 37 measuring 5 mm, right upper lobe image 37 2 5 mm right upper lobe image 30 measuring 6.5 mm, right upper lobe image 31 measuring 2 mm right upp er lobe image 28 measuring 3 mm, right upper lobe image 28 measuring 2 mm, right lower lobe image 21 measuring 2 mm, left upper lobe image 17 measuring 2 mm, left lower lobe image 19 measuring 2 mm, lef t upper lobe image 26 measuring 2 mm, left lower lobe image 32 measuring 3 mm, left lower lobe severa l 2 mm lesions. No pleural effusion or CT evidence of interstitial lung disease. MEDIASTINUM: Ascending thoracic aortic aneurysm measuring 4.9 cm. The heart is enlarged. No evidence for mediastinal mass or adenopathy. HILAR STRUCTURES: No evidence for mass. No hilar adenopathy is appreciated. OTHER: No significant abnormality. CONTRAST CT ABDOMEN AND PELVIS: LIVER/GB: No calcified gallstones. No space occupying hepatic lesion. Biliary tree is of normal ca liber. PANCREAS: No inflammation. No distinct mass. SPLEEN: No splenic enlargement. No lesion seen. ADRENALS: No nodule. No thickening. KIDNEYS/BLADDER: Renal atrophic changes. Hypoattenuating renal lesions redemonstrated. BOWEL: Normal appendix. Normal bowel caliber. No inflammation. GENITAL ORGANS: No gross abnormality. LYMPH NODES: No greater than 1cm abdominal or pelvic lymph nodes are appreciated. AORTA: No significant abnormality. OSSEOUS STRUCTURES: Left os pubis mass persists. OTHER: No significant additional abnormality is seen. IMPRESSION: 1. New pulmonary nodules are identified suspicious for metastatic disease. 2. Sclerotic metastases involving T11 and T12 as well as several additional thoracic segments althoug h subtle in nature. Lesion of the left os pubis.
--- NOTE | 2021-01-01 18:43 | NM ---
EXAMINATION TYPE: NM bone scan whole body DATE OF EXAM: 01/01/2021 COMPARISON: Correlation CT same day and prior bone scan 08/01/2020 HISTORY: 89-year-old male C61, history of prostate cancer TECHNIQUE: Delayed whole-body scanning was performed following the injection of 22.1 mCi Tc 99m MDP. Anterior and posterior projection images acquired 3.25 hours post injection. FINDINGS: Redemonstrated osseous metastatic disease at the T11 level. Some previous osseous metastatic disease involving the pubic bones and right acetabulum is also redemonstrated. However, there is new disease with increasing activity at the left ischium, proximal left femur, ante rior left iliac crest, an anterior rib end on either side, a left posterior upper rib, inferior right scapula, posterior elements of the mid thoracic spine, T12 and L1 vertebra. IMPRESSION: 1. Redemonstrated osseous metastatic disease but with interval progression now involving a mid thorac ic vertebra, T12, L1, inferior right scapula, posterior left upper rib, an anterior rib end on either side, proximal left femur, and left ischium. 2. Previous disease redemonstrated involving T11, left acetabulum, and bilateral pubic bones.
== END | disposition home or self-care (01) ==
LOC: RADCTMAIN 09:09
PROVIDERS: ATTEND Internal Medicine Hematology & Oncology
DX: M25.852 Other specified joint disorders, left hip (principal); R91.8 Other nonspecific abnormal finding of lung field; C79.51 Secondary malignant neoplasm of bone; C61 Malignant neoplasm of prostate
CPT/HCPCS: 71250; 74176; 78306; A9503

== ENCOUNTER → 2021-01-08 | Outpatient (CLI) | payer MEDICARE, BC ==
--- NOTE | 2021-01-08 15:32 | MR ---
EXAMINATION TYPE: MR brain wo/w con DATE OF EXAM: 01/08/2021 COMPARISON: None HISTORY: Vertigo, black outs CONTRAST: Performed utilizing 7.5 mL intravenous Gadavist gadolinium contrast. TECHNIQUE: Multiplanar, multiecho imaging on a 3.0 Renée magnet is performed through the brain. Stud y is performed within 24 hours of arrival to the hospital. The craniovertebral junction is normal. The pituitary is normal. Diffusion-weighted imaging is performed. No abnormal hyperintensity is present to suggest an acute i ntracranial infarct or acute ischemic change. There are scattered punctate areas of hyperintensity on T2 and Inversion Recovery weighted sequences which are non-specific but can be related to microvascular ischemic changes. Differential diagnosis c ould include but is not limited to vasculitis, multiple sclerosis, Lyme disease. No abnormal enhancement is evident. Cerebellar pontine angle appears normal. Normal vascular flow voi ds are present. Vascular structures as visualized on this non-M R a study appear unremarkable. Ventricles and sulci are appropriate for the patient age. Small amount of fluid may be within the inferior right mastoid air cells. A mild right mastoiditis co uld be considered. Very minimal fluid may be within the left mastoid air cells. IMPRESSIONS: 1. Very minimal mastoiditis may be present. This is slightly greater on the right than left. Clinical correlation recommended. 2. Chronic appearing microvascular ischemic type changes and age-related atrophy.
== END | disposition home or self-care (01) ==
LOC: RADMRIMAIN 14:36
PROVIDERS: ATTEND Internal Medicine Hematology & Oncology
DX: I67.82 Cerebral ischemia (principal); G31.1 Senile degeneration of brain, not elsewhere classified; C61 Malignant neoplasm of prostate; R42 Dizziness and giddiness
CPT/HCPCS: 70553; A9585

== ENCOUNTER → 2021-09-11 | Outpatient (CLI) | payer MEDICARE, BC ==
--- NOTE | 2021-09-11 16:17 | NM ---
EXAMINATION TYPE: NM bone scan whole body DATE OF EXAM: 09/11/2021 COMPARISON: NONE HISTORY: Secondary malignant neoplasm of the bone Delayed whole-body scanning was performed following the injection of 23.1 mCi Tc 99m MDP. Images wer e acquired 4.25 hours post injection. FINDINGS: There is a collection contamination below the level of the pelvis. Old Metastases: Uptake in the T11 pedicles and spinous process may be present. There appears to be up take within the posterior right L1 pedicle region which is less intense than the comparison study. Th ere is uptake within the region of T4 on the right. Uptake is within the lateral inferior right scapu lar border. Changing Metastasis: There is intense activity to the left pubic symphysis and pubic ramus initial ra mus. Uptake extends through the right ischio ramus suspicious for metastatic disease, present previou sly but increasing in intensity. There appears to be some mild scattered uptake throughout the right hip intertrochanteric region. This is increased from comparison. New Metastasis: Pedicles of T12 and right L1 region. Uptake appears to be on the left costovertebral T4-5 level centrally 5 which are new. There is no roly reciated uptake within the right anterior third rib. Uptake within anterior rib ends, one on the lowe r right into within the mid and lower left side are evident. These are nonspecific and could be relat ed to trauma. Changing uptake however suggests these may be metastatic lesions in the mid left anteri or rib and may be new. There is no uptake within the anterior right L5 region. There may be uptake wi thin the medial one vertebral level increased from comparison. IMPRESSION: 1. Increasing and new metastatic lesions discussed above.
== END | disposition home or self-care (01) ==
LOC: RADNMMAIN 10:30
PROVIDERS: ATTEND Radiology Radiation Oncology
DX: C79.51 Secondary malignant neoplasm of bone (principal); C78.5 Secondary malignant neoplasm of large intestine and rectum; C78.00 Secondary malignant neoplasm of unspecified lung; Z79.818 Long term (current) use of other agents affecting estrogen receptors and estrogen levels; C61 Malignant neoplasm of prostate; Z92.3 Personal history of irradiation
CPT/HCPCS: 78306; A9503

== ENCOUNTER → 2021-10-16 | Outpatient (CLI) | payer MEDICARE, BC | END | disposition home or self-care (01) | LOC: RADXRMAIN 10:07 | PROVIDERS: ATTEND Radiology Radiation Oncology | DX: Z53.9 Procedure and treatment not carried out, unspecified reason (principal) ==

== ENCOUNTER → 2021-10-16 | Outpatient (CLI) | payer MEDICARE, BC ==
--- NOTE | 2021-10-16 10:11 | US ---
EXAMINATION TYPE: US venous doppler duplex LE LT DATE OF EXAM: 10/16/2021 10:00 AM COMPARISON: NONE CLINICAL HISTORY: R22.42 Swelling left lower extremity. Left lower leg pain for the past 1-2 months SIDE PERFORMED: Left TECHNIQUE: The lower extremity deep venous system is examined utilizing real time linear array sonog troy with graded compression, doppler sonography and color-flow sonography. VESSELS IMAGED: Common Femoral Vein Deep Femoral Vein Greater Saphenous Vein * Femoral Vein Popliteal Vein Small Saphenous Vein * Proximal Calf Veins (* superficial vessels) Left Leg: Negative for DVT Grayscale, color doppler, spectral doppler imaging performed of the deep veins of the left lower extr emity. There is normal flow, compressibility, vascular waveforms. IMPRESSION: No ultrasound evidence for acute DVT in the left lower extremity.
--- NOTE | 2021-10-16 10:31 | XR ---
EXAMINATION TYPE: XR knee complete LT DATE OF EXAM: 10/16/2021 CLINICAL HISTORY: Left knee pain for 2 months. TECHNIQUE: Three views of the left knee are obtained. COMPARISON: None. FINDINGS: There is no acute fracture/dislocation evident in left knee. Moderate tricompartment joint space loss. Mild tibial condylar spurring. Overlying soft tissue is unremarkable. IMPRESSION: As above.
== END | disposition home or self-care (01) ==
LOC: RADUSWWP 09:29
PROVIDERS: ATTEND Radiology Radiation Oncology
DX: R22.42 Localized swelling, mass and lump, left lower limb (principal); M25.562 Pain in left knee

== ENCOUNTER 2021-11-09 10:39 | Emergency (ER) | payer MEDICARE, BC ==
[2021-11-09 10:55] VITALS: TEMP 98.4
--- NOTE | 2021-11-09 11:44 | ED ---
Fall HPI - General Chief Complaint: Fall Stated Complaint: Fall Time Seen by Provider: 11/09/21 11:03 Source: patient, EMS Mode of arrival: EMS - History of Present Illness Initial Comments: this 89-year-old male presents to the emergency department after falling while walking out of his bathroom at 8:00am. patient lied on the floor for about an hour until his son arrived. Patient states he slipped and fell, hitting his right shoulder, right elbow, right wrist, and right ankle. Patient does not think he hit his head and denies loss of consciousness, back, neck, or head ruba n. patient takes aspirin. He states his pain is 2 out of 10 after receiving pain medication in the EMS. Patient denies chest pain, dizziness, lightheadedness, shortness of breath. - Related Data Home Medications Medication Instructions Recorded Confirmed atenoloL 25 mg PO DAILY@1500 07/19/18 11/09/21 Imipramine [Tofranil] 10 mg PO TID 11/23/19 11/09/21 Multivitamins, Thera [Multivitamin 1 tab PO DAILY 11/30/19 11/09/21 (formulary)] Levothyroxine Sodium [Synthroid] 88 mcg PO DAILY 12/10/20 11/09/21 Meclizine [Antivert] 25 mg PO TID 12/10/20 11/09/21 Vitamin E 400 unit PO DAILY 12/10/20 11/09/21 C,E,Zinc,Copper 11/Piyna5y/Lut 1 cap PO DAILY@1500 11/09/21 11/09/21 [Ocuvite Adult 50 Plus Softgel] Calcium Carbonate [Calcium] 600 mg PO DAILY@1500 11/09/21 11/09/21 Oxybutynin Chloride 5 mg PO TID 11/09/21 11/09/21 Tylenol #2 1 tab PO TID PRN 11/09/21 11/09/21 predniSONE 5 mg PO DAILY 11/09/21 11/09/21 Allergies Allergy/AdvReac Type Severity Reaction Status Date / Time No Known Allergies Allergy Verified 11/09/21 12:06 Review of Systems ROS Statement: Those systems with pertinent positive or pertinent negative responses have been documented in the HPI. ROS Other: All systems not noted in ROS Statement are negative. Past Medical History Past Medical History: Cancer, Thyroid Disorder Additional Past Medical History / Comment(s): Prostate Cancer, pt states "he was diagnosed 20 years ago". pt states "short-term impairment" History of Any Multi-Drug Resistant Organisms: None Reported Past Surgical History: Orthopedic Surgery Additional Past Surgical History / Comment(s): right shoulder rotator cuff repair. biopsy of prostate. pt states "he had bladder surgery with removal of tumor". TURP Past Anesthesia/Blood Transfusion Reactions: No Reported Reaction Past Psychological History: No Psychological Hx Reported Smoking Status: Never smoker Past Alcohol Use History: None Reported Past Drug Use History: None Reported - Past Family History Mother Family Medical History: Cancer Additional Family Medical History / Comment(s): Breast Cancer. Father Family Medical History: Myocardial Infarction ([place]) General Exam Limitations: no limitations General appearance: alert, in no apparent distress Head exam: Present: atraumatic, normocephalic, normal inspection Eye exam: Present: normal appearance, EOMI Neck exam: Present: normal inspection. Absent: tenderness, meningismus, lymphadenopathy Respiratory exam: Present: normal lung sounds bilaterally. Absent: respiratory distress, wheezes, rales, rhonchi, stridor Cardiovascular Exam: Present: regular rate, normal rhythm, normal heart sounds. Absent: systolic murmur, diastolic murmur, rubs, gallop, clicks GI/Abdominal exam: Present: soft, normal bowel sounds. Absent: distended, tenderness, guarding, rebound, rigid Right Shoulder Exam: Present: tenderness ( ). Absent: swelling, abrasion, laceration, ecchymosis, erythema Upper Arm exam: Present: tenderness, abrasion (large) Elbow exam: Present: tenderness, abrasion (Large skin tear ), ecchymosis. Absent: full ROM (unable to extended arm) Forearm Wrist exam: Present: tenderness, abrasion. Absent: full ROM (pain with flexion) Hand Wrist exam: Present: tenderness, swelling. Absent: full ROM, laceration Neuro motor exam: Present: wrist extension intact, thumb opposition intact Vascular: Present: normal capillary refill, radial pulse, brachial pulse, ulnar pulse Right Hip exam: Present: normal inspection Upper Leg exam: Present: normal inspection Knee exam: Present: normal inspection Lower Leg exam: Present: normal inspection Ankle exam: Present: full ROM, tenderness, swelling. Absent: abrasion, laceration, ecchymosis Foot/Toe exam: Present: normal inspection Back exam: Present: normal inspection, full ROM. Absent: tenderness Neurological exam: Present: alert, oriented X3, CN II-XII intact. Absent: altered, motor sensory deficit Psychiatric exam: Present: normal affect, normal mood Skin exam: Present: abrasion Course Vital Signs 11/09/21 11/09/21 10:41 13:29 Temperature 98.4 F Pulse Rate 88 92 Respiratory 19 18 Rate Blood Pressure 133/82 151/82 O2 Sat by Pulse 100 99 Oximetry Procedures - Orthopedic Splinting/Casting Injury #1 Side: right Upper Extremity Injury Location: short arm, wrist Upper Extremity Immobilizer: volar splint, synthetic pre-padded splint Medical Decision Making - Medical Decision Making [this 89-year-old male presents to the emergency department after slipping and and falling while walking out of his bathroom. Brain and neck CT read by radiologist revealed no intracranial hemorrhage or cervical neck fractures. Right shoulder, elbow, wrist x-ray read by radiologist revealed distal radial head fracture. Right ankle x-ray read by radiologist revealed no acute finding s. right volar wrist splint applied. Patient told to follow-up with orthopedics in next 24-48 hours. Patient sent home in stable condition, .return precautions given Disposition Clinical Impression: Fracture of right distal radius Disposition: HOME SELF-CARE Condition: Stable Instructions (If sedation given, give patient instructions): Fall Prevention for Older Adults (ED), Fall Prevention (ED) Additional Instructions: follow-up with orthopedics in next 24-48 hours. Return to emergency department if symptoms worsen. Is patient prescribed a controlled substance at d/c from ED?: No Referrals: Jose Moreno MD [Primary Care Provider] - 1-2 days Time of Disposition: 13:35
--- NOTE | 2021-11-09 12:09 | CT ---
EXAMINATION TYPE: CT brain eduard cueva DATE OF EXAM: 11/09/2021 COMPARISON: None HISTORY: Fall, pain CT DLP: 1440.[address] of the brain was performed. The ventricles, basal cisterns and sulci overlying the cerebral convexities demonstrate mildly enlarg ement. There is no evidence for intracranial hemorrhage or sulcal effacement. There is decreased attenuatio n about the periventricular white matter and deep white matter of both cerebral hemispheres, compatib le with chronic small vessel ischemia. No mass effects are seen. If symptoms persist consider MRI. Osseous calvarium is intact. IMPRESSION: 1. Age related atrophic and chronic small vessel ischemic change without acute intracranial process seen at this time. Scattered areas of remote insult noted bilaterally. CT Cervical Spine: Unenhanced CT of the cervical spine was performed with bone and soft tissue window settings submitted . Coronal and sagittal reconstruction is obtained. There is normal alignment and prevertebral soft tissues. No evidence for acute cervical fracture . Scattered degenerative disc disease and spondylosis. Biapical scarring. IMPRESSION: 1. No evidence for acute fracture or subluxation of the cervical spine.
--- NOTE | 2021-11-09 12:49 | XR ---
EXAMINATION TYPE: XR ankle complete RT DATE OF EXAM: 11/09/2021 COMPARISON: NONE HISTORY: Pain TECHNIQUE: Frontal, lateral and oblique images of the right ankle are obtained. COMPARISON: None. FINDINGS: There is no acute fracture/dislocation evident. The joint spaces appear within normal rodriguez its. The overlying soft tissue appears unremarkable. IMPRESSION: There is no acute fracture or dislocation seen.
--- NOTE | 2021-11-09 12:51 | XR ---
EXAMINATION TYPE: XR shoulder complete RT DATE OF EXAM: 11/09/2021 CLINICAL HISTORY: pain TECHNIQUE: Three views of the right shoulder are obtained. COMPARISON: None FINDINGS: There is no acute fracture/dislocation evident. The acromioclavicular and glenohumeral [place] int spaces appear narrowed. Chronic rotator cuff tear. Bony fragmentation. The visualized ribs are in tact and unremarkable. IMPRESSION: 1. There is no acute fracture or dislocation. ICD 10 NO FRACTURE, INITIAL EVALUATION
--- NOTE | 2021-11-09 12:52 | XR ---
EXAMINATION TYPE: XR wrist complete RT DATE OF EXAM: 11/09/2021 CLINICAL HISTORY: pain TECHNIQUE: Frontal, lateral and oblique images of the right wrist are obtained. COMPARISON: None. FINDINGS: Minimally displaced distal radial fracture noted. The joint spaces appear within normal limits. The overlying soft tissue appears unremarkable. IMPRESSION: Minimally displaced distal radial fracture noted.
--- NOTE | 2021-11-09 12:55 | XR ---
EXAMINATION TYPE: XR elbow complete RT DATE OF EXAM: 11/09/2021 CLINICAL HISTORY: pain TECHNIQUE: Frontal, lateral and oblique images of the right elbow are obtained. COMPARISON: None. FINDINGS: There is no acute fracture/dislocation evident of the elbow. No abnormal fat pad signs ar e seen. The overlying soft tissue appears unremarkable. IMPRESSION: There is no acute fracture or dislocation of the elbow. ICD 10 NO FRACTURE, INITIAL EVALUATION
[2021-11-09] MEDS ORDERED: BACITRACIN OINT 1 EACH PACKET TOPICAL ONE (13:09)
[2021-11-09 13:30] VITALS: BP 151/82; PULSE 92; RESP 18
[2021-11-09] MEDS ORDERED: ACET/COD 300 MG/30 MG STARTER PACK 6 TAB BTL PO STA (13:31)
== END 2021-11-09 13:42 | disposition home or self-care (01) ==
LOC: EC 10:39
DX: S52.501A Unspecified fracture of the lower end of right radius, initial encounter for closed fracture (principal); E07.9 Disorder of thyroid, unspecified; Z79.890 Hormone replacement therapy; W01.10XA Fall on same level from slipping, tripping and stumbling with subsequent striking against unspecified object, initial encounter; Y92.009 Unspecified place in unspecified non-institutional (private) residence as the place of occurrence of the external cause; Y93.01 Activity, walking, marching and hiking
CPT/HCPCS: 29125; 70450; 72125; 99284

== ENCOUNTER 2021-11-13 18:46 | Inpatient (IN) | payer MEDICARE, BC ==
[2021-11-13] MEDS ORDERED: SODIUM CHLORIDE 0.9% 1,000 ML IV STA (19:20)
[2021-11-13 19:32] LABS: Basophils % (A) 0 %; Eosinophils % (A) 0 %; HCT 33.4 % (39.0-53.0); HGB 10.9 gm/dL (13.0-17.5); Lymphocytes # (A) 0.3 k/uL (1.0-4.8); Lymphocytes % (A) 3 %; MCH 29.3 pg (25.0-35.0); MCHC 32.5 g/dL (31.0-37.0); MCV 90.2 fL (80.0-100.0); Mean Platelet Volume 7.4; Monocytes # (A) 0.8 k/uL (0-1.0); Monocytes % (A) 7 %; Neutrophils # (A) 10.9 k/uL (1.3-7.7); Neutrophils % (A) 89 %; Platelet Count 237 k/uL (150-450); RDW 15.5 % (11.5-15.5); WBC 12.2 k/uL (3.8-10.6)
--- NOTE | 2021-11-13 19:38 | ED ---
General Adult HPI - General Chief complaint: Fall Stated complaint: revisit- fall Time Seen by Provider: 11/13/21 18:58 Source: patient, EMS, RN notes reviewed, old records reviewed Mode of arrival: EMS Limitations: no limitations - History of Present Illness Initial comments: Patient is an 89-year-old male with past medical history remarkable for cancer, as well as a recent fall with a significant abrasion to the right upper extremity as well as a right wrist fracture currently splinted him following up with orthopedic next week presents emergency Department after multiple falls again today. He isn't sure if he is experiencing syncopal episodes or loss of consciousness. He states he feels weak all over and is unable to get back up afterwards. States he fell on his knees and is having knee pain. Denies any known injury to his head. Endorses chronic pain over the right wrist secondary to known fracture. Also endorses right ankle pain has been present since prior fall which she has been able to put weight on. X-ray a few days ago was negative at that time. He endorses overall general weakness and fatigue, without any known etiology. Denies any fevers, chills, sick contacts. Denies any headaches, sensory deficits. Has no chest pain or shortness of breath. His no abdominal pain, nausea, vomiting. No known sick contacts. Patient's daughter presents with the patient and his looking to admit the patient for placement, as he has been having increased weakness over the last few days with increased falls and his children do not feel comfortable taking care of him anymore without support. Patient lives alone. The patient was in agreement with this plan. Patient is not on blood thinners. - Related Data Home Medications Medication Instructions Recorded Confirmed atenoloL 25 mg PO DAILY@1500 07/19/18 11/09/21 Imipramine [Tofranil] 10 mg PO TID 11/23/19 11/09/21 Multivitamins, Thera [Multivitamin 1 tab PO DAILY 11/30/19 11/09/21 (formulary)] Levothyroxine Sodium [Synthroid] 88 mcg PO DAILY 12/10/20 11/09/21 Meclizine [Antivert] 25 mg PO TID 12/10/20 11/09/21 Vitamin E 400 unit PO DAILY 12/10/20 11/09/21 C,E,Zinc,Copper 11/Yfsbk2t/Lut 1 cap PO DAILY@1500 11/09/21 11/09/21 [Ocuvite Adult 50 Plus Softgel] Calcium Carbonate [Calcium] 600 mg PO DAILY@1500 11/09/21 11/09/21 Oxybutynin Chloride 5 mg PO TID 11/09/21 11/09/21 Tylenol #2 1 tab PO TID PRN 11/09/21 11/09/21 predniSONE 5 mg PO DAILY 11/09/21 11/09/21 Allergies Allergy/AdvReac Type Severity Reaction Status Date / Time No Known Allergies Allergy Verified 11/13/21 19:00 Review of Systems ROS Statement: Those systems with pertinent positive or pertinent negative responses have been documented in the HPI. Review of Systems: CONST: Denies fever EYES: Denies blurry vision ENT: Denies nasal congestion C/V: Denies Chest pain RESP: Denies shortness of breath GI: Denies abdominal pain : Denies dysuria SKIN: Denies rash. MSK: Endorses knee pain, Wrist pain, ankle pain NEURO: Denies headache ROS Other: All systems not noted in ROS Statement are negative. Past Medical History Past Medical History: Cancer, Thyroid Disorder Additional Past Medical History / Comment(s): Prostate Cancer, pt states "he was diagnosed 20 years ago". pt states "short-term impairment" History of Any Multi-Drug Resistant Organisms: None Reported Past Surgical History: Orthopedic Surgery Additional Past Surgical History / Comment(s): right shoulder rotator cuff repair. biopsy of prostate. pt states "he had bladder surgery with removal of tumor". TURP Past Anesthesia/Blood Transfusion Reactions: No Reported Reaction Past Psychological History: No Psychological Hx Reported Smoking Status: Never smoker Past Alcohol Use History: None Reported Past Drug Use History: None Reported - Past Family History Mother Family Medical History: Cancer Additional Family Medical History / Comment(s): Breast Cancer. Father Family Medical History: Myocardial Infarction ([place]) General Exam - General Exam Comments Initial Comments: General: Appears in no acute distress. HEAD: Normal with no signs of head trauma. EYES: PERRLA, EOMI, conjunctiva normal, no discharge. ENT: Hearing grossly intact, normal oropharynx. RESPIRATORY: Clear breath sounds bilaterally. No wheezes, rales, or rhonchi. C/V: Regular rate and rhythm. S1 and S2 auscultated, no edema, peripheral pulses 2+ and intact throughout ABD: Abd is soft, nontender, nondistended EXT: Normal range of motion, no obvious deformity. No cervical, thoracic, lumbar spine tenderness to palpation. No tenderness to palpation of the pelvis. Pelvis is stable. Patient has bilateral anterior knee tenderness to palpation with no skin changes. Patient is right ankle tenderness palpation with no skin changes, but mild swelling. Patient is neurovascularly intact in the right upper extremity is unaffected sensation as well as good cap refill. Splint will remain in place at this time. No other obvious injuries. SKIN: No rashes or lesions observed on exposed skin. NEURO: Alert and oriented x 4. Cranial nerves II-XII intact. No focal sensory or strength deficits. GCS is 15. Limitations: no limitations Course Vital Signs 11/13/21 18:48 Temperature 98.7 F Pulse Rate 98 Respiratory 16 Rate Blood Pressure 131/68 O2 Sat by Pulse 95 Oximetry Medical Decision Making - Medical Decision Making Based on the patient's presentation and physical exam, I am concerned for possible bony traumatic injury to the patient from the falls today. However I would like to also obtain laboratory workup to evaluate potential cause for falls and generalized weakness. He'll be admitted afterwards for placement per the patient and family members plans. I did discuss as the patient and he was in agreement this plan. He will be given a 1 L fluid bolus at this time. Patient was vaccinated for COVID-19 and given a booster. Laboratory studies were not done on the patient a few days ago, but he has become progressively more weak since then. EKG showed no signs of acute ischemia.Patient's imaging showed no signs of acute injury or fracture. CT brain showed no acute intracranial process but chronic strokes. Laboratory studies are remarkable for a significant ANUSHA with a creatinine of 3.3 and BUN of 74. Troponin is mildly elevated to 0.068 likely secondary to the ANUSHA as he has no chest pain. He has a mild leukocytosis of 12.2 which is likely reactive as well as being mildly anemic to a hemoglobin of 10.9. The remainder of his labs are unremarkable. Covid is negative. At this time I discussed with family members and I would like to admit him to the hospital for placement as well as for his ANUSHA and fluid hydration. He will be started on maintenance IV fluids. We will trend the troponins, and cardiology will be consulted for evaluation. They were in agreement this plan. I spoke with the admitting physician Dr. Burks who is covering for Dr. Moreno and who accepted the patient. Patient was therefore admitted in stable condition. Urinalysis is still pending at this time. - Lab Data Result diagrams: 11/13/21 19:22 11/13/21 19:22 Lab Results 11/13/21 11/13/21 11/13/21 Range/Units 19:22 19:22 19:22 WBC 12.2 H (3.8-10.6) k/uL RBC 3.70 L (4.30-5.90) m/uL Hgb 10.9 L (13.0-17.5) gm/dL Hct 33.4 L (39.0-53.0) % MCV 90.2 (80.0-100.0) fL MCH 29.3 (25.0-35.0) pg MCHC 32.5 (31.0-37.0) g/dL RDW 15.5 (11.5-15.5) % Plt Count 237 (150-450) k/uL MPV 7.4 Neutrophils % 89 % Lymphocytes % 3 % Monocytes % 7 % Eosinophils % 0 % Basophils % 0 % Neutrophils # 10.9 H (1.3-7.7) k/uL Lymphocytes # 0.3 L (1.0-4.8) k/uL Monocytes # 0.8 (0-1.0) k/uL Eosinophils # 0.0 (0-0.7) k/uL Basophils # 0.0 (0-0.2) k/uL PT 10.6 (9.0-12.0) sec INR 1.0 (<1.2) APTT 21.0 L (22.0-30.0) sec Sodium 141 (137-145) mmol/L Potassium 5.1 (3.5-5.1) mmol/L Chloride 111 H (98-107) mmol/L Carbon Dioxide 17 L (22-30) mmol/L Anion Gap 13 mmol/L BUN 74 H (9-20) mg/dL Creatinine 3.30 H (0.66-1.25) mg/dL Est GFR (CKD-EPI)AfAm 18 (>60 ml/min/1.73 sqM) Est GFR (CKD-EPI)NonAf 16 (>60 ml/min/1.73 sqM) Glucose 137 H (74-99) mg/dL Plasma Lactic Acid Mitesh (0.7-2.0) mmol/L Calcium 10.1 (8.4-10.2) mg/dL Magnesium 2.5 H (1.6-2.3) mg/dL Total Bilirubin 0.4 (0.2-1.3) mg/dL AST 49 (17-59) U/L ALT 19 (4-49) U/L Alkaline Phosphatase 66 (38-126) U/L Troponin I (0.000-0.034) ng/mL Total Protein 6.9 (6.3-8.2) g/dL Albumin 3.8 (3.5-5.0) g/dL Coronavirus (PCR) (Not Detectd) 11/13/21 11/13/21 11/13/21 Range/Units 19:22 19:22 19:22 WBC (3.8-10.6) k/uL RBC (4.30-5.90) m/uL Hgb (13.0-17.5) gm/dL Hct (39.0-53.0) % MCV (80.0-100.0) fL MCH (25.0-35.0) pg MCHC (31.0-37.0) g/dL RDW (11.5-15.5) % Plt Count (150-450) k/uL MPV Neutrophils % % Lymphocytes % % Monocytes % % Eosinophils % % Basophils % % Neutrophils # (1.3-7.7) k/uL Lymphocytes # (1.0-4.8) k/uL Monocytes # (0-1.0) k/uL Eosinophils # (0-0.7) k/uL Basophils # (0-0.2) k/uL PT (9.0-12.0) sec INR (<1.2) APTT (22.0-30.0) sec Sodium (137-145) mmol/L Potassium (3.5-5.1) mmol/L Chloride (98-107) mmol/L Carbon Dioxide (22-30) mmol/L Anion Gap mmol/L BUN (9-20) mg/dL Creatinine (0.66-1.25) mg/dL Est GFR (CKD-EPI)AfAm (>60 ml/min/1.73 sqM) Est GFR (CKD-EPI)NonAf (>60 ml/min/1.73 sqM) Glucose (74-99) mg/dL Plasma Lactic Acid Mitesh 1.5 (0.7-2.0) mmol/L Calcium (8.4-10.2) mg/dL Magnesium (1.6-2.3) mg/dL Total Bilirubin (0.2-1.3) mg/dL AST (17-59) U/L ALT (4-49) U/L Alkaline Phosphatase (38-126) U/L Troponin I 0.068 H* (0.000-0.034) ng/mL Total Protein (6.3-8.2) g/dL Albumin (3.5-5.0) g/dL Coronavirus (PCR) Not Detected (Not Detectd) - EKG Data -: EKG Interpreted by Me EKG Comments: 12-lead Electrocardiogram Interpretation Note EKG was reviewed and interpreted by myself. 12-lead ECG performed at 1900 is interpreted by me as revealing normal sinus rhythm at a rate of 96 beats per minute. [place] is normal. [place] interval is 150 ms, QRS duration 70 ms, QTc is 411 ms.. There were no ST or T wave abnormalities to suggest myocardial ischemia or injury. R wave progression across the precordium was satisfactory. By my interpretation this EKG is non-diagnostic for acute ischemia. Disposition Clinical Impression: Fall, Pre-syncope, ANUSHA (acute kidney injury), Dehydration, Elevated troponin Disposition: ADMITTED IP TO THIS HOSP Condition: Stable Referrals: Jose Moreno MD [Primary Care Provider] - 1-2 days
--- NOTE | 2021-11-13 19:43 | XR ---
EXAMINATION TYPE: XR chest 2V DATE OF EXAM: 11/13/2021 COMPARISON: 12/10/2020 HISTORY: Fall. Pain TECHNIQUE: Single view FINDINGS: There is no heart failure nor confluent pneumonic infiltrate. Costophrenic angles are clear . Thoracic aorta is atheromatous. There are no hilar masses. IMPRESSION: Atheromatous aneurysmal thoracic aorta. No active cardiopulmonary disease. No change.
[2021-11-13 19:48] LABS: Prothrombin Time 10.6 sec (9.0-12.0)
--- NOTE | 2021-11-13 19:52 | XR ---
EXAMINATION TYPE: XR ankle complete RT DATE OF EXAM: 11/13/2021 COMPARISON: NONE HISTORY: Pain TECHNIQUE: 3 views FINDINGS: Ankle mortise is anatomic. There is plantar and Achilles calcaneal spurring. Joint spaces a re normal. There is no evidence of a fracture. IMPRESSION: Calcaneal spurring. No fracture.
[2021-11-13 19:58] LABS: Albumin 3.8 g/dL (3.5-5.0); Calcium 10.1 mg/dL (8.4-10.2); Magnesium 2.5 mg/dL (1.6-2.3); Potassium 5.1 mmol/L (3.5-5.1); Total Bilirubin 0.4 mg/dL (0.2-1.3); Total Protein 6.9 g/dL (6.3-8.2)
--- NOTE | 2021-11-13 20:00 | XR ---
EXAMINATION TYPE: XR pelvis AP view DATE OF EXAM: 11/13/2021 COMPARISON: NONE HISTORY: Pain TECHNIQUE: Single view FINDINGS: The pelvic ring is intact. There is some osteosclerosis in the left pubic bones. There is m ild sclerosis also right superior pubic ramus. Sacroiliac joints are intact. Proximal femurs are inta ct. There is some subtle sclerosis in the proximal left femur. IMPRESSION: Sclerotic changes. This could be metastatic disease also demonstrated on the abdomen CT s can of 01/01/2021. No acute fracture. 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
--- NOTE | 2021-11-13 20:02 | XR ---
EXAMINATION TYPE: XR knee complete bilateral DATE OF EXAM: 11/13/2021 COMPARISON: Left knee 10/16/2021 HISTORY: Pain TECHNIQUE: 3 views each knee FINDINGS: I see no fracture nor dislocation. Joint spaces are fairly normal. There is no sign of a [place] int effusion. There is minor spurring of the femoral and tibial condyles. IMPRESSION: Mild hypertrophic degenerative changes. No fracture.
--- NOTE | 2021-11-13 20:15 | CT ---
EXAMINATION TYPE: CT brain wo con DATE OF EXAM: 11/13/2021 COMPARISON: 11/09/2021 HISTORY: Fall CT DLP: 1129.4 mGycm Automated exposure control for dose reduction was used. There is hypodensity in the bryan-white matter right occipital lobe. There is no mass effect or midlin e shift. There is cerebral cortical atrophy. There is hypodensity left posterior parietal lobe bryan a nd white matter measuring 4 cm. There is some hypodensity inferior left cerebellar hemisphere. Calvar ium is intact. There is no evidence of intracranial hemorrhage. 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 No hemorrhage.
[2021-11-13] MEDS ORDERED: IBUPROFEN 400 MG TAB PO PRN (20:40)
[2021-11-13] MEDS ORDERED: NALOXONE 0.4 MG/ML 1 ML VIAL IV PRN (20:40)
[2021-11-13] MEDS ORDERED: MORPHINE SULFATE 4 MG/ML SYRINGE IV PRN (20:40)
[2021-11-13] MEDS: OXYBUTYNIN CHLORIDE 5 MG TAB PO SCH (22:26)
[2021-11-13] MEDS: HEPARIN SODIUM,PORCINE/PF 5,000 UNIT/0.5 ML SYRINGE SQ SCH (22:26)
[2021-11-13] MEDS: SODIUM CHLORIDE 0.9% 1,000 ML IV SCH (22:26)
[2021-11-13] MEDS: MECLIZINE 25 MG TAB PO SCH (22:26)
[2021-11-13 22:36] LABS: Amorphous Sediment,Urine Rare /hpf; Appearance,Urine Clear (Clear); Bilirubin,Urine Negative (Negative); Blood,Urine Moderate (Negative); Color,Urine Yellow; Glucose,Urine (UA) Negative (Negative); Ketones,Urine Negative (Negative); Leukocyte Esterase,Urine Small (Negative); Mucus,Urine Rare /hpf; Nitrite,Urine Negative (Negative); PH, Urine 5.5 (5.0-8.0); Protein,Urine 1+ (Negative); RBC,Urine 2 /hpf (0-5); Specific Gravity,Urine 1.015 (1.001-1.035); Squamous Epithelial Cell,Urine <1 /hpf (0-4); Urobilinogen,Urine <2.0 mg/dL (<2.0); WBC,Urine 9 /hpf (0-5)
[2021-11-14] MEDS: LEVOTHYROXINE 88 MCG TAB PO SCH (06:38)
[2021-11-14] MEDS: SODIUM CHLORIDE 0.9% 1,000 ML IV SCH ×2 (07:50→20:45)
[2021-11-14 10:38] LABS: Basophils % (A) 0 %; Eosinophils # (A) 0.1 k/uL (0-0.7); Eosinophils % (A) 1 %; HCT 34.4 % (39.0-53.0); HGB 10.5 gm/dL (13.0-17.5); Hypochromasia Marked; Lymphocytes # (A) 0.8 k/uL (1.0-4.8); Lymphocytes % (A) 9 %; MCH 29.5 pg (25.0-35.0); MCHC 30.6 g/dL (31.0-37.0); Mean Platelet Volume 7.4; Monocytes # (A) 0.7 k/uL (0-1.0); Monocytes % (A) 9 %; Neutrophils # (A) 6.5 k/uL (1.3-7.7); Neutrophils % (A) 78 %; Platelet Count 219 k/uL (150-450); RBC 3.55 m/uL (4.30-5.90); RDW 15.4 % (11.5-15.5); WBC 8.3 k/uL (3.8-10.6)
[2021-11-14 10:41] LABS: MCV 96.7 fL (80.0-100.0)
[2021-11-14 10:43] LABS: Calcium 9.1 mg/dL (8.4-10.2); Potassium 5.1 mmol/L (3.5-5.1)
[2021-11-14] MEDS: OXYBUTYNIN CHLORIDE 5 MG TAB PO SCH ×3 (10:49→21:43)
[2021-11-14] MEDS: HEPARIN SODIUM,PORCINE/PF 5,000 UNIT/0.5 ML SYRINGE SQ SCH ×2 (11:12→21:43)
[2021-11-14] MEDS: MECLIZINE 25 MG TAB PO SCH ×3 (11:12→21:43)
[2021-11-14] MEDS: SODIUM BICARBONATE TAB 650 MG TAB PO SCH ×3 (16:49→21:43)
[2021-11-14] MEDS: ASPIRIN 81 MG PO SCH (16:49)
[2021-11-14] MEDS: atenoloL 25 MG TAB PO SCH (16:49)
--- NOTE | 2021-11-15 02:07 | P.HPIM ---
History of Present Illness H&P Date: 11/14/21 Chief Complaint: Falls Patient is a 89-year-old male with a known history of hypertension, hypothyroidism, history of prostate cancer and previous history of smoking with recent history of fall on 11/09/2021 with significant relation to the right upper extremity as well as right wrist fracture status post splint placement and supposed to follow-up with orthopedic surgery clinic next week on Tuesday. Patient was brought to the hospital due to complaints of multiple falls at home yesterday. Patient otherwise denied any loss of consciousness. He feels very weak and unable to get back up due to right upper extremity splint. Apparently patient slid from the bed onto his knees and was also complaining of knee pain on admission. Patient otherwise denies any complaints of chest pain or shortness of breath. No cough or sputum production. No recent illnesses. Denies any head injury. 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 No active cardiopulmonary disease. No change. Ankle x-ray showed calcaneal spurring. No fracture. Pelvic x-ray showed sclerotic changes. Could be metastatic disease also demonstrated on the abdominal CT on 01/01/2021. No acute fractures. Also consider unusual venous disease of the pelvis. Knee x-ray showed mild hypertrophic degenerative changes. No fracture. CT head showed multiple infarcts involving the left posterior lobe right occipital lobe and left cerebellar hemisphere without change compared to recent exam. No hemorrhage. EKG showed normal sinus rhythm Laboratory data showed WBC 12.2 hemoglobin 10.89 and platelets 237 Sodium 141 potassium 5.1 chloride 101 bicarb is 17 BUN 74 and creatinine 3.3 Troponin 0 0.068, 0.078 and 0.078 Urinalysis showed moderate blood small leukocyte esterase and 9 WBCs. Coronavirus PCR not detected. Review of Systems Constitutional: Patient denies any fever or chills . No generalized weakness or weight loss. Abdomen: Patient denied nausea vomiting and diarrhea and abdominal pain. Cardiovascular: Patient denies any chest pain or short of breath no palpitations. Respiratory: patient denied any cough or sputum production. No shortness of breath Neurologic: Patient denied any numbness or tingling headache. Musculoskeletal: Patient denies any complaints of joint swelling or deformity. Rt wrist pain Skin: Negative Psychiatric: Negative Endocrine: No heat or cold intolerance. No recent weight gain. Genitourinary: No dysuria or hematuria. All other 14 point ROS negative except the above Past Medical History Past Medical History: Cancer, Thyroid Disorder Additional Past Medical History / Comment(s): Prostate Cancer, pt states "he was diagnosed 20 years ago". pt states "short-term impairment" History of Any Multi-Drug Resistant Organisms: None Reported Past Surgical History: Orthopedic Surgery Additional Past Surgical History / Comment(s): right shoulder rotator cuff repair. biopsy of prostate. pt states "he had bladder surgery with removal of tumor". TURP Past Anesthesia/Blood Transfusion Reactions: No Reported Reaction Past Psychological History: No Psychological Hx Reported Smoking Status: Former smoker Past Alcohol Use History: None Reported Past Drug Use History: None Reported - Past Family History Mother Family Medical History: Cancer Additional Family Medical History / Comment(s): Breast Cancer. Father Family Medical History: Myocardial Infarction (CT) Medications and Allergies Home Medications Medication Instructions Recorded Confirmed Type RX: atenoloL 25 mg PO DAILY@1500 07/19/18 11/14/21 History Imipramine [Tofranil] 10 mg PO TID 11/23/19 11/14/21 History Multivitamins, Thera [Multivitamin 1 tab PO DAILY 11/30/19 11/14/21 History (formulary)] Levothyroxine Sodium [Synthroid] 88 mcg PO DAILY 12/10/20 11/14/21 History Meclizine [Antivert] 25 mg PO TID 12/10/20 11/14/21 History RX: Vitamin E 400 unit PO DAILY 12/10/20 11/14/21 History C,E,Zinc,Copper 11/Cuget0v/Lut 1 cap PO DAILY@1500 11/09/21 11/14/21 History [Ocuvite Adult 50 Plus Softgel] Calcium Carbonate [Calcium] 600 mg PO DAILY@1500 11/09/21 11/14/21 History RX: Oxybutynin Chloride 5 mg PO TID 11/09/21 11/14/21 History RX: predniSONE 5 mg PO DAILY 11/09/21 11/14/21 History Tylenol #2 1 tab PO TID PRN 11/09/21 11/14/21 History Allergies Allergy/AdvReac Type Severity Reaction Status Date / Time No Known Allergies Allergy Verified 11/14/21 06:37 Physical Exam Vitals: Vital Signs Temp Pulse Pulse Resp BP BP Pulse Ox 11/14/21 11:10 78 18 134/72 96 11/14/21 07:54 98.2 F 87 18 131/73 96 11/14/21 05:00 69 16 137/65 94 L 11/14/21 04:00 68 16 128/57 11/14/21 03:00 67 16 132/67 94 L 11/14/21 02:00 84 16 135/73 96 11/13/21 21:59 93 18 137/71 97 11/13/21 18:48 98.7 F 98 16 131/68 95 Intake and Output 11/13/21 11/14/21 11/14/21 22:59 06:59 14:59 Other: Voiding Method Diaper Incontinent Weight 95.254 kg 95.254 kg PHYSICAL EXAMINATION: Patient is lying in the bed comfortably, no acute distress, awake alert and oriented.. HEENT: Normocephalic. Neck is supple. Pupils reactive. Nostrils clear. Oral cavity is moist. Neck reveals no JVD, carotid bruits, or thyromegaly. CHEST EXAMINATION: Trachea is central. Symmetrical expansion. bibasilar diminis hed soundds ,Lung santoro clear to auscultation and percussion. CARDIAC: Normal S1, S2 with no gallops. No murmurs ABDOMEN: Soft. Bowel sounds normal. No organomegaly. No abdominal bruits. Extremities: reveal no edema. No clubbing or cyanosis Neurologically awake, alert, oriented x3 with well-coordinated movements. No focal deficits noted Skin: No rash or skin lesions. Psychiatric: Cooperative. Nonsuicidal Musculoskeletal: No joint swelling or deformity. RUE splint Results CBC & Chem 7: 11/15/21 09:15 11/15/21 09:15 Labs: Abnormal Lab Results - Last 24 Hours (Table) 11/13/21 11/13/21 11/13/21 Range/Units 19:22 19:22 19:22 WBC 12.2 H (3.8-10.6) k/uL RBC 3.70 L (4.30-5.90) m/uL Hgb 10.9 L (13.0-17.5) gm/dL Hct 33.4 L (39.0-53.0) % MCHC (31.0-37.0) g/dL Neutrophils # 10.9 H (1.3-7.7) k/uL Lymphocytes # 0.3 L (1.0-4.8) k/uL APTT 21.0 L (22.0-30.0) sec Chloride 111 H (98-107) mmol/L Carbon Dioxide 17 L (22-30) mmol/L BUN 74 H (9-20) mg/dL Creatinine 3.30 H (0.66-1.25) mg/dL Glucose 137 H (74-99) mg/dL Magnesium 2.5 H (1.6-2.3) mg/dL Troponin I (0.000-0.034) ng/mL Urine Protein (Negative) Urine Blood (Negative) Ur Leukocyte Esterase (Negative) Urine WBC (0-5) /hpf Amorphous Sediment (None) /hpf Urine Mucus (None) /hpf 11/13/21 11/13/21 11/13/21 Range/Units 19:22 22:00 22:18 WBC (3.8-10.6) k/uL RBC (4.30-5.90) m/uL Hgb (13.0-17.5) gm/dL Hct (39.0-53.0) % MCHC (31.0-37.0) g/dL Neutrophils # (1.3-7.7) k/uL Lymphocytes # (1.0-4.8) k/uL APTT (22.0-30.0) sec Chloride (98-107) mmol/L Carbon Dioxide (22-30) mmol/L BUN (9-20) mg/dL Creatinine (0.66-1.25) mg/dL Glucose (74-99) mg/dL Magnesium (1.6-2.3) mg/dL Troponin I 0.068 H* 0.078 H* (0.000-0.034) ng/mL Urine Protein 1+ H (Negative) Urine Blood Moderate H (Negative) Ur Leukocyte Esterase Small H (Negative) Urine WBC 9 H (0-5) /hpf Amorphous Sediment Rare H (None) /hpf Urine Mucus Rare H (None) /hpf 11/14/21 11/14/21 11/14/21 Range/Units 01:11 09:47 09:47 WBC (3.8-10.6) k/uL RBC 3.55 L (4.30-5.90) m/uL Hgb 10.5 L (13.0-17.5) gm/dL Hct 34.4 L (39.0-53.0) % MCHC 30.6 L (31.0-37.0) g/dL Neutrophils # (1.3-7.7) k/uL Lymphocytes # 0.8 L (1.0-4.8) k/uL APTT (22.0-30.0) sec Chloride 115 H (98-107) mmol/L Carbon Dioxide 13 L (22-30) mmol/L BUN 72 H (9-20) mg/dL Creatinine 3.08 H (0.66-1.25) mg/dL Glucose (74-99) mg/dL Magnesium (1.6-2.3) mg/dL Troponin I 0.078 H* (0.000-0.034) ng/mL Urine Protein (Negative) Urine Blood (Negative) Ur Leukocyte Esterase (Negative) Urine WBC (0-5) /hpf Amorphous Sediment (None) /hpf Urine Mucus (None) /hpf Thrombosis Risk Factor Assmnt - DVT/VTE Prophylaxis DVT/VTE Prophylaxis: Pharmacologic Prophylaxis ordered Assessment and Plan Assessment: Recurrent falls/presyncopal episode likely due to dehydration/ANUSHA Recent history of fall and right wrist fracture and right upper extremity abrasion. Minimally displaced distal radial fracture. Supposed to follow-up with orthopedic surgery clinic on Tuesday. Elevated troponin likely due to acute kidney injury Acute on chronic kidney disease stage III. Baseline creatinine 2.1. 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 History of prostate cancer status post surgery. Hypothyroidism DVT prophylaxis with heparin subcu Plan: Patient will be continued on IV hydration with normal saline and encourage oral intake.. Monitor renal function and continue with sodium bicarb drip. Avoid nephrot oxins. Continue with home medications including levothyroxine Continue with pain management with morphine and PT OT will be consulted. Cardiology was consulted elevated troponin level. Orthopedic surgery consult. Time with Patient: Greater than 30
[2021-11-15] MEDS: SODIUM CHLORIDE 0.9% 1,000 ML IV SCH ×2 (05:34→10:20)
[2021-11-15] MEDS: LEVOTHYROXINE 88 MCG TAB PO SCH (05:35)
[2021-11-15] MEDS: ASPIRIN 81 MG PO SCH (09:40)
[2021-11-15] MEDS: MECLIZINE 25 MG TAB PO SCH ×3 (09:40→21:15)
[2021-11-15] MEDS: HEPARIN SODIUM,PORCINE/PF 5,000 UNIT/0.5 ML SYRINGE SQ SCH ×2 (09:40→21:15)
[2021-11-15] MEDS: SODIUM BICARBONATE TAB 650 MG TAB PO SCH ×3 (09:40→21:15)
[2021-11-15] MEDS: OXYBUTYNIN CHLORIDE 5 MG TAB PO SCH ×3 (09:41→21:15)
[2021-11-15 10:03] LABS: African American GFR (CKD) 26 (>60 ml/min/1.73 sqM); Anion Gap 7 mmol/L; Blood Urea Nitrogen 60 mg/dL (9-20); Calcium 8.4 mg/dL (8.4-10.2); Carbon Dioxide 12 mmol/L (22-30); Chloride 122 mmol/L (98-107); Glucose 81 mg/dL (74-99); Non-African American GFR(CKD) 22 (>60 ml/min/1.73 sqM); Potassium 4.3 mmol/L (3.5-5.1); Sodium 141 mmol/L (137-145)
--- NOTE | 2021-11-15 10:25 | P.CNOR ---
History of Present Illness - [facility] Consult date: 11/15/21 Consult reason: fracture History of present illness: Patient is an 89-year-old male seen at bedside in consultation for known right distal radius fracture. He was seen in our office by Betsey Church PA-C last week and was placed in a volar splint. He also had skin tear wounds dressed at the right upper extremity. He was readmitted recently for recurring falls and syncopal episodes. He has no new complaints with the right upper extremity. He denies numbness or tingling or other new complaints. Review of Systems All systems: negative Constitutional: Denies chills, Denies fever Eyes: denies blurred vision, denies pain Ears, nose, mouth and throat: Denies headache, Denies sore throat Cardiovascular: Denies chest pain, Denies shortness of breath Respiratory: Denies cough Gastrointestinal: Denies abdominal pain, Denies diarrhea, Denies nausea, Denies vomiting Musculoskeletal: Denies myalgias Integumentary: Denies pruritus, Denies rash Neurological: Denies numbness, Denies weakness Psychiatric: Denies anxiety, Denies depression Endocrine: Denies fatigue, Denies weight change Past Medical History Past Medical History: Cancer, Thyroid Disorder Additional Past Medical History / Comment(s): Prostate Cancer, pt states "he was diagnosed 20 years ago". pt states "short-term impairment" History of Any Multi-Drug Resistant Organisms: None Reported Past Surgical History: Orthopedic Surgery Additional Past Surgical History / Comment(s): right shoulder rotator cuff repair. biopsy of prostate. pt states "he had bladder surgery with removal of tumor". TURP Past Anesthesia/Blood Transfusion Reactions: No Reported Reaction Past Psychological History: No Psychological Hx Reported Smoking Status: Former smoker Past Alcohol Use History: None Reported Past Drug Use History: None Reported - Past Family History Mother Family Medical History: Cancer Additional Family Medical History / Comment(s): Breast Cancer. Father Family Medical History: Myocardial Infarction ([place]) Medications and Allergies Home Medications Medication Instructions Recorded Confirmed Type atenoloL 25 mg PO DAILY@1500 07/19/18 11/14/21 History Imipramine [Tofranil] 10 mg PO TID 11/23/19 11/14/21 History Multivitamins, Thera [Multivitamin 1 tab PO DAILY 11/30/19 11/14/21 History (formulary)] Levothyroxine Sodium [Synthroid] 88 mcg PO DAILY 12/10/20 11/14/21 History Meclizine [Antivert] 25 mg PO TID 12/10/20 11/14/21 History Vitamin E 400 unit PO DAILY 12/10/20 11/14/21 History C,E,Zinc,Copper 11/Bgfyh2y/Lut 1 cap PO DAILY@1500 11/09/21 11/14/21 History [Ocuvite Adult 50 Plus Softgel] Calcium Carbonate [Calcium] 600 mg PO DAILY@1500 11/09/21 11/14/21 History Oxybutynin Chloride 5 mg PO TID 11/09/21 11/14/21 History Tylenol #2 1 tab PO TID PRN 11/09/21 11/14/21 History predniSONE 5 mg PO DAILY 11/09/21 11/14/21 History Allergies Allergy/AdvReac Type Severity Reaction Status Date / Time No Known Allergies Allergy Verified 11/14/21 06:37 Physical Examination Inspection of the right upper extremity shows full volar splint in place along the dressing and Gavin bandage. The splint and bandage is not removed. He has adequate perfusion to all digits and has motor and sensation intact. Results - Labs Labs: Abnormal Lab Results - Last 24 Hours (Table) 11/14/21 11/14/21 11/15/21 Range/Units 09:47 09:47 09:15 RBC 3.55 L (4.30-5.90) m/uL Hgb 10.5 L (13.0-17.5) gm/dL Hct 34.4 L (39.0-53.0) % MCHC 30.6 L (31.0-37.0) g/dL Lymphocytes # 0.8 L (1.0-4.8) k/uL Chloride 115 H 122 H (98-107) mmol/L Carbon Dioxide 13 L 12 L (22-30) mmol/L BUN 72 H 60 H (9-20) mg/dL Creatinine 3.08 H 2.49 H (0.66-1.25) mg/dL H & H 11/13/21 11/14/21 Range/Units 19:22 09:47 Hgb 10.9 L 10.5 L (13.0-17.5) gm/dL Hct 33.4 L 34.4 L (39.0-53.0) % Coagulation 11/13/21 Range/Units 19:22 INR 1.0 (<1.2) Result Diagrams: 11/14/21 09:47 11/15/21 09:15 Assessment and Plan (1) Fracture of right distal radius Narrative/Plan: He is to maintain splint, dressing and bandage for his nonweight displaced right distal radius fracture. We will consider transitioning to cast in the next few days and reassess his skin tear wounds. Continue ice and elevation. Continue pain management per primary team. Current Visit: No Status: Acute Code(s): S52.501A - UNSP FRACTURE OF THE LOWER END OF RIGHT RADIUS, INIT SNOMED Code(s): 366332378 Time with Patient: Less than 30
[2021-11-15 10:32] LABS: Basophils % (A) 0 %; Eosinophils # (A) 0.1 k/uL (0-0.7); Eosinophils % (A) 2 %; HCT 29.9 % (39.0-53.0); HGB 9.5 gm/dL (13.0-17.5); Hypochromasia Moderate; Lymphocytes # (A) 0.6 k/uL (1.0-4.8); Lymphocytes % (A) 9 %; MCH 29.8 pg (25.0-35.0); MCHC 31.9 g/dL (31.0-37.0); MCV 93.5 fL (80.0-100.0); Mean Platelet Volume 7.4; Monocytes # (A) 0.5 k/uL (0-1.0); Monocytes % (A) 9 %; Neutrophils # (A) 4.8 k/uL (1.3-7.7); Neutrophils % (A) 77 %; Platelet Count 187 k/uL (150-450); RBC 3.19 m/uL (4.30-5.90); RDW 15.7 % (11.5-15.5); WBC 6.2 k/uL (3.8-10.6)
--- NOTE | 2021-11-15 10:34 | P.CRDCN ---
History of Present Illness History of present illness: HISTORY OF PRESENTING ILLNESS Patient is pleasant 89-year-old male with a history of hypertension, hypothyroidism, prostate cancer, previous tobacco abuse, dyspnea, previous stroke, noted on CT who presents 3 days after initial fall. Patient is confusing much of history is supplied by daughter. Apparently had been doing very well and had been building a shed into September. Unfortunately had an issue where he was walking from the bathroom and then follow on 11/09 and presented to emergency department and was found to have a right radial fracture with contusion and a splint placed by orthopedic surgery. He was discharged home and unfortunately has not been himself since the initial fall. He has been confused and not able to recall his medical history like before. Additionally has been having frequent falls at home. It appears he is unstable and not actually having any syncopal episodes. Daughter admits that he likely has not been eating as much home and was diagnosed with dehydration and given IV fluids. He had a CT brain performed which showed multiple infarcts involving the left posterior parietal lobe right occipital lobe and left cerebral hemisphere without change compared to recent exam. Chest x-ray showed atheromatous aneurysmal thoracic aorta however no acute cardiopulmonary disease. He denies any specific chest pain or pressure or shortness breath. Blood work shows white blood cell count 12.2, hemoglobin 10.9, bicarb 17 down to 13, BUN 74, creatinine 3.3 with baseline approximately 2, troponin 0.06, 0.07, 0.07. Urinalysis shows moderate blood with small leukocyte Estrace and 9 white blood cells. EKG shows normal sinus rhythm with no significant ST or T-wave abnormalities. Patient states he was evaluated by Dr. Hardwick approximately 8 months ago for dyspnea however no significant findings. REVIEW OF SYSTEMS At the time of my exam: CONSTITUTIONAL: Denies fever or chills. CARDIOVASCULAR: Denies chest pain, shortness of breath, orthopnea, PND or palpitations. RESPIRATORY: Denies cough. GASTROINTESTINAL: Denies abdominal pain, diarrhea, constipation, nausea or vomiting. MUSCULOSKELETAL: Denies myalgias. NEUROLOGIC: Denies numbness, tingling or weakness. +confusion ENDOCRINE: Denies fatigue, weight change, polydipsia or polyurina. GENITOURINARY: Denies burning, hematuria or urgency with micturation. HEMATOLOGIC: Denies history of anemia or bleeding. PHYSICAL EXAMINATION Vital signs reviewed. CONSTITUTIONAL: No apparent distress, confused, poor recall HEENT: Head is normocephalic. Pupils are equal, round. Sclerae anicteric. Mucous membranes of the mouth are moist. No JVD. No carotid bruit. CHEST EXAMINATION: Lungs are clear to auscultation. No chest wall tenderness is noted on palpation or with deep breathing. HEART EXAMINATION: Regular rate and rhythm. S1, S2 heard. No murmurs, gallops or rub. ABDOMEN: Soft, nontender. Positive bowel sounds. EXTREMITIES: 2+ peripheral pulses, no lower extremity edema and no calf tende rness. +right arm splint NEUROLOGIC EXAMINATION: Patient is awake, alert ASSESSMENT 1. Elevated troponins of unclear significance, no angina-type symptoms and most likely type II mechanism related to possible sepsis and acute kidney injury 2. Hypertension 3. Acute kidney injury, appears related to dehydration 4. Altered mental status, rule out metabolic versus possible infectious etiology with mildly increased white blood cell count and metabolic acidosis vs stroke 5. Metabolic acidosis 6. Prior stroke noted on CT 7. Multiple falls, appears mechanical and likely related to altered mental status PLAN Has had multiple recent falls and concern given continued altered mental status. Rule out infectious etiology with mildly increased white blood cell count in addition metabolic acidosis. Metabolic acidosis may be related to kidney failure however we will check lactic acid as well. Falls appear mechanical in nature related to confusion and no history of actual syncope. Minimally elevated troponins however no significant angina-type symptoms. We will check 2-D echo and continue with aspirin and Atenolol. Further recs to follow. Past Medical History Past Medical History: Cancer, Thyroid Disorder Additional Past Medical History / Comment(s): Prostate Cancer, pt states "he was diagnosed 20 years ago". pt states "short-term impairment" History of Any Multi-Drug Resistant Organisms: None Reported Past Surgical History: Orthopedic Surgery Additional Past Surgical History / Comment(s): right shoulder rotator cuff repair. biopsy of prostate. pt states "he had bladder surgery with removal of tumor". TURP Past Anesthesia/Blood Transfusion Reactions: No Reported Reaction Past Psychological History: No Psychological Hx Reported Smoking Status: Former smoker Past Alcohol Use History: None Reported Past Drug Use History: None Reported - Past Family History Mother Family Medical History: Cancer Additional Family Medical History / Comment(s): Breast Cancer. Father Family Medical History: Myocardial Infarction ([place]) Medications and Allergies Home Medications Medication Instructions Recorded Confirmed Type atenoloL 25 mg PO DAILY@1500 07/19/18 11/14/21 History Imipramine [Tofranil] 10 mg PO TID 11/23/19 11/14/21 History Multivitamins, Thera [Multivitamin 1 tab PO DAILY 11/30/19 11/14/21 History (formulary)] Levothyroxine Sodium [Synthroid] 88 mcg PO DAILY 12/10/20 11/14/21 History Meclizine [Antivert] 25 mg PO TID 12/10/20 11/14/21 History Vitamin E 400 unit PO DAILY 12/10/20 11/14/21 History C,E,Zinc,Copper 11/Nbsos4h/Lut 1 cap PO DAILY@1500 11/09/21 11/14/21 History [Ocuvite Adult 50 Plus Softgel] Calcium Carbonate [Calcium] 600 mg PO DAILY@1500 11/09/21 11/14/21 History Oxybutynin Chloride 5 mg PO TID 11/09/21 11/14/21 History Tylenol #2 1 tab PO TID PRN 11/09/21 11/14/21 History predniSONE 5 mg PO DAILY 11/09/21 11/14/21 History Allergies Allergy/AdvReac Type Severity Reaction Status Date / Time No Known Allergies Allergy Verified 11/14/21 06:37 Physical Exam Vitals: Vital Signs Temp Pulse Resp BP Pulse Ox 11/15/21 08:00 97.9 F 89 18 154/70 97 11/15/21 04:00 98.1 F 93 18 162/74 98 11/15/21 02:00 85 17 11/15/21 00:00 98.0 F 85 17 164/91 93 L 11/14/21 20:00 97.9 F 93 17 143/69 98 11/14/21 16:00 97.2 F L 84 16 147/72 96 11/14/21 14:00 16 11/14/21 11:10 78 18 134/72 96 Intake and Output 11/14/21 11/15/21 11/15/21 22:59 06:59 14:59 Intake Total 118 1100 Balance 118 1100 Intake: Intake, IV Titration 1100 Amount Sodium Chloride 0.9% 1, 1100 000 ml @ 100 mls/hr IV . Q10H [facility] Rx#:[id number] Oral 118 Other: Voiding Method Diaper Diaper Diaper Incontinent Incontinent Incontinent # Voids 2 2 # Bowel Movements 1 Weight 73 kg Results 11/14/21 09:47 11/15/21 09:15 CBC 11/14/21 Range/Units 09:47 WBC 8.3 (3.8-10.6) k/uL RBC 3.55 L (4.30-5.90) m/uL Hgb 10.5 L (13.0-17.5) gm/dL Hct 34.4 L (39.0-53.0) % Plt Count 219 (150-450) k/uL Comprehensive Metabolic Panel 11/14/21 11/15/21 Range/Units 09:47 09:15 Sodium 141 141 (137-145) mmol/L Potassium 5.1 4.3 (3.5-5.1) mmol/L Chloride 115 H 122 H (98-107) mmol/L Carbon Dioxide 13 L 12 L (22-30) mmol/L BUN 72 H 60 H (9-20) mg/dL Creatinine 3.08 H 2.49 H (0.66-1.25) mg/dL Glucose 83 81 (74-99) mg/dL Calcium 9.1 8.4 (8.4-10.2) mg/dL Current Medications Generic Name Dose Route Start Last Admin Trade Name Freq PRN Reason Stop Dose Admin Aspirin 81 mg 11/14/21 13:30 11/15/21 09:40 Aspirin 81 Mg PO 81 mg DAILY JEEVAN Administration Atenolol 25 mg 11/14/21 15:00 11/14/21 16:49 Atenolol 25 Mg Tab PO 25 mg DAILY@1500 JEEVAN Administration Heparin Sodium (Porcine) 5,000 unit 11/13/21 21:00 11/15/21 09:40 Heparin Sodium,Porcine/Pf 5,000 Unit/0.5 Ml Syringe SQ 5,000 unit Q12HR JEEVAN Administration Sodium Chloride 1,000 mls @ 100 mls/hr 11/13/21 20:45 11/15/21 10:20 Saline 0.9% IV Not Given .Q10H JEEVAN Levothyroxine Sodium 88 mcg 11/14/21 06:30 11/15/21 05:35 Levothyroxine 88 Mcg Tab PO 88 mcg DAILY@0630 JEEVAN Administration Meclizine HCl 25 mg 11/13/21 22:00 11/15/21 09:40 Meclizine 25 Mg Tab PO 25 mg TID JEEVAN Administration Morphine Sulfate 4 mg 11/13/21 20:40 Morphine Sulfate 4 Mg/Ml Syringe IV Q4HR PRN Severe Pain Naloxone HCl 0.2 mg 11/13/21 20:40 Naloxone 0.4 Mg/Ml 1 Ml Vial IV Q2M PRN Opioid Reversal Oxybutynin Chloride 5 mg 11/13/21 22:00 11/15/21 09:41 Oxybutynin Chloride 5 Mg Tab PO 5 mg TID JEEVAN Administration Sodium Bicarbonate 650 mg 11/14/21 13:00 11/15/21 09:40 Sodium Bicarbonate Tab 650 Mg Tab PO 650 mg TID JEEVAN Administration Intake and Output 11/14/21 11/15/21 11/15/21 22:59 06:59 14:59 Intake Total 118 1100 Balance 118 1100 Intake: Intake, IV Titration 1100 Amount Sodium Chloride 0.9% 1, 1100 000 ml @ 100 mls/hr IV . Q10H JEEVAN Rx#:[id number] Oral 118 Other: Voiding Method Diaper Diaper Diaper Incontinent Incontinent Incontinent # Voids 2 2 # Bowel Movements 1 Weight 73 kg 11/14/21 09:47 11/15/21 09:15
[2021-11-15 11:04] LABS: T4, Free (Free Thyroxine) 1.32 ng/dL (0.78-2.19)
[2021-11-15] MEDS: atenoloL 25 MG TAB PO SCH (16:06)
[2021-11-15] MEDS: SODIUM CHLORIDE 0.45% 1,000 ML IV SCH (17:43)
--- NOTE | 2021-11-16 01:31 | P.PN ---
Subjective Progress Note Date: 11/15/21 Patient is a 89-year-old male with a known history of hypertension, hypothyroidism, history of prostate cancer and previous history of smoking with recent history of fall on 11/09/2021 with significant relation to the right upper extremity as well as right wrist fracture status post splint placement and supposed to follow-up with orthopedic surgery clinic next week on Tuesday. Patient was brought to the hospital due to complaints of multiple falls at home yesterday. Patient otherwise denied any loss of consciousness. He feels very weak and unable to get back up due to right upper extremity splint. Apparently patient slid from the bed onto his knees and was also complaining of knee pain on admission. Patient otherwise denies any complaints of chest pain or shortness of breath. No cough or sputum production. No recent illnesses. Denies any head injury. 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 No active cardiopulmonary disease. No change. Ankle x-ray showed calcaneal spurring. No fracture. Pelvic x-ray showed sclerotic changes. Could be metastatic disease also dem onstrated on the abdominal CT on 01/01/2021. No acute fractures. Also consider unusual venous disease of the pelvis. Knee x-ray showed mild hypertrophic degenerative changes. No fracture. CT head showed multiple infarcts involving the left posterior lobe right occipital lobe and left cerebellar hemisphere without change compared to recent exam. No hemorrhage. EKG showed normal sinus rhythm Laboratory data showed WBC 12.2 hemoglobin 10.89 and platelets 237 Sodium 141 potassium 5.1 chloride 101 bicarb is 17 BUN 74 and creatinine 3.3 Troponin 0 0.068, 0.078 and 0.078 Urinalysis showed moderate blood small leukocyte esterase and 9 WBCs. Coronavirus PCR not detected. 11/15/2021 Patient appears to be more awake and oriented today. Right upper extremity pain is controlled with medications. Patient does have multiple falls which are likely mechanical. No complaints of dizziness or lightheadedness. Patient was seen by cardiology due to elevated troponin level. Patient will be continued on gentle IV hydration and follow-up BUN and creatinine level. Creatinine improved to 2.49 today. Bicarb level is 12. Currently maintained on bicarb tablets. Free T4 within normal limits. Seen by orthopedic surgery due to distal right radial fracture. Discussed with his daughter at bedside in detail. Follow-up CBC and BMP tomorrow. REVIEW OF SYSTEMS CONSTITUTIONAL: Denies fever or chills. CARDIOVASCULAR: Denies chest pain, shortness of breath, orthopnea, PND or palpitations. RESPIRATORY: Denies cough. GASTROINTESTINAL: Denies abdominal pain, diarrhea, constipation, nausea or vomiting. MUSCULOSKELETAL: Denies myalgias. NEUROLOGIC: Denies numbness, tingling or weakness. ENDOCRINE: Denies fatigue, weight change, polydipsia or polyurina. GENITOURINARY: Denies burning, hematuria or urgency with micturation. HEMATOLOGIC: Denies history of anemia or bleeding. Objective - Vital Signs Vital signs: Vital Signs Temp 97.9 F 11/15/21 16:00 Pulse 83 11/15/21 16:00 Resp 18 11/15/21 16:00 BP 109/63 11/15/21 16:00 Pulse Ox 95 11/15/21 16:00 Intake & Output 11/14/21 11/15/21 11/15/21 18:59 06:59 18:59 Intake Total 118 1100 480 Balance 118 1100 480 Weight 95.254 kg 73 kg Intake: Intake, IV Titration 1100 Amount Sodium Chloride 0.9% 1, 1100 000 ml @ 100 mls/hr IV . Q10H [facility] Rx#:[id number] Oral 118 480 Other: Voiding Method Diaper Diaper Diaper Incontinent Incontinent Incontinent # Voids 2 2 1 # Bowel Movements 1 1 - Exam PHYSICAL EXAMINATION: Patient is lying in the bed comfortably, no acute distress, awake alert and oriented.. HEENT: Normocephalic. Neck is supple. Pupils reactive. Nostrils clear. Oral cavity is moist. Neck reveals no JVD, carotid bruits, or thyromegaly. CHEST EXAMINATION: Trachea is central. Symmetrical expansion. bibasilar diminished soundds ,Lung santoro clear to auscultation and percussion. CARDIAC: Normal S1, S2 with no gallops. No murmurs ABDOMEN: Soft. Bowel sounds normal. No organomegaly. No abdominal bruits. Extremities: reveal no edema. No clubbing or cyanosis Neurologically awake, alert, oriented x3 with well-coordinated movements. No focal deficits noted Skin: No rash or skin lesions. Psychiatric: Cooperative. Nonsuicidal Musculoskeletal: No joint swelling or deformity. RUE splint - Labs CBC & Chem 7: 11/15/21 09:15 11/15/21 09:15 Labs: Abnormal Lab Results - Last 24 Hours (Table) 11/15/21 11/15/21 Range/Units 09:15 09:15 RBC 3.19 L (4.30-5.90) m/uL Hgb 9.5 L (13.0-17.5) gm/dL Hct 29.9 L (39.0-53.0) % RDW 15.7 H (11.5-15.5) % Lymphocytes # 0.6 L (1.0-4.8) k/uL Chloride 122 H (98-107) mmol/L Carbon Dioxide 12 L (22-30) mmol/L BUN 60 H (9-20) mg/dL Creatinine 2.49 H (0.66-1.25) mg/dL TSH 0.372 L (0.465-4.680) mIU/L Assessment and Plan Assessment: Recurrent falls/presyncopal episode likely due to dehydration/ANUSHA. Recent history of fall and right wrist fracture and right upper extremity abrasion. Minimally displaced distal radial fracture. Supposed to follow-up with orthopedic surgery clinic on Tuesday. Elevated troponin likely due to acute kidney injury Acute on chronic kidney disease stage III. Baseline creatinine 2.1. 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 History of prostate cancer status post surgery. Hypothyroidism DVT prophylaxis with heparin subcu Plan: Patient will be continued on IV hydratio and encourage oral intake.. Monitor renal function and continue with sodium bicarb drip. Avoid nephrotoxins. Continue with home medications including levothyroxine Continue with pain management with morphine and PT OT will be consulted. Cardiology was consulted elevated troponin level. Orthopedic surgery is on board.
[2021-11-16] MEDS: LEVOTHYROXINE 88 MCG TAB PO SCH (05:47)
[2021-11-16] MEDS: SODIUM CHLORIDE 0.45% 1,000 ML IV SCH ×2 (05:47→20:04)
[2021-11-16] MEDS: ASPIRIN 81 MG PO SCH (09:41)
[2021-11-16] MEDS: OXYBUTYNIN CHLORIDE 5 MG TAB PO SCH ×3 (09:41→20:04)
[2021-11-16] MEDS: SODIUM BICARBONATE TAB 650 MG TAB PO SCH ×3 (09:41→20:04)
[2021-11-16] MEDS: MECLIZINE 25 MG TAB PO SCH ×3 (09:41→20:04)
[2021-11-16] MEDS: HEPARIN SODIUM,PORCINE/PF 5,000 UNIT/0.5 ML SYRINGE SQ SCH ×2 (09:41→20:04)
[2021-11-16 10:19] LABS: Potassium 4.3 mmol/L (3.5-5.1)
[2021-11-16 10:25] LABS: Anisocytosis Slight; Basophils % (A) 1 %; Eosinophils # (A) 0.2 k/uL (0-0.7); Eosinophils % (A) 4 %; HCT 30.3 % (39.0-53.0); HGB 9.7 gm/dL (13.0-17.5); Hypochromasia Moderate; Lymphocytes # (A) 0.6 k/uL (1.0-4.8); Lymphocytes % (A) 11 %; MCH 29.7 pg (25.0-35.0); MCHC 31.9 g/dL (31.0-37.0); MCV 93.2 fL (80.0-100.0); Mean Platelet Volume 7.2; Monocytes # (A) 0.4 k/uL (0-1.0); Monocytes % (A) 8 %; Neutrophils # (A) 3.8 k/uL (1.3-7.7); Neutrophils % (A) 73 %; Platelet Count 201 k/uL (150-450); RBC 3.25 m/uL (4.30-5.90); RDW 16.5 % (11.5-15.5); WBC 5.2 k/uL (3.8-10.6)
--- NOTE | 2021-11-16 11:03 | P.PN ---
Subjective Progress Note Date: 11/16/21 I am starting care for this patient on 11/16/2020, Dr Nguyen was covering for me This is an 89-year-old male patient who initially presented to the ER due to concerns of multiple falls and possible ECF placement. Apparently patient had recent fall on 11/09/2021 in which he sustained a right wrist fracture and was splinted and was advised follow-up with orthopedic surgery. Chest x-ray in ER showed no acute pulmonary disease. Ankle and pelvic x-ray completed showing no acute fractures. Head CT completed ER showing multiple infarcts involving the left posterior lobe bright signal in left cerebral hemisphere without changes compared to recent exam. No hemorrhage. She was admitted and orthopedic and cardiology consult placed. Social work services also consulted for possible ECF placement On 11/16/2021 patient is currently resting comfortably in bed. Patient does appear alert and oriented 3. Per nursing staff patient does have episodes of intermittent confusion. He was started on Rocephin for urinary tract infection urine culture ordered. Cardiology and orthopedic services are following. 2-D echo has been ordered. At this time patient denies chest pain or shortness breath. Patient denies nausea vomiting or diarrhea. Patient denies any urinary burning or frequency Objective - Vital Signs Vital signs: Vital Signs Temp 98.3 F 11/16/21 09:35 Pulse 84 11/16/21 09:35 Resp 16 11/16/21 09:35 BP 138/72 11/16/21 09:35 Pulse Ox 97 11/16/21 09:35 Intake & Output 11/15/21 11/16/21 11/16/21 18:59 06:59 18:59 Intake Total 480 100 180 Output Total 1 Balance 480 99 180 Weight 72 kg Intake: Oral 480 100 180 Output: Urine/Stool Mix 1 Other: Voiding Method Diaper Diaper Incontinent Incontinent # Voids 1 2 1 # Bowel Movements 1 - Exam Head normocephalic Neck supple Lungs clear to auscultation bilaterally no wheezing or crackles Heart regular rate and rhythm S1-S2, no rub or gallop Abdomen is soft nontender nondistended positive bowel sounds no hepatosplenomegaly Extremities no edema. Right arm splint clean dry and intact Neuro alert and orientated to 3. Intermittent confusion - Labs CBC & Chem 7: 11/16/21 08:39 11/16/21 08:39 Labs: Abnormal Lab Results - Last 24 Hours (Table) 11/16/21 11/16/21 Range/Units 08:39 08:39 RBC 3.25 L (4.30-5.90) m/uL Hgb 9.7 L (13.0-17.5) gm/dL Hct 30.3 L (39.0-53.0) % RDW 16.5 H (11.5-15.5) % Lymphocytes # 0.6 L (1.0-4.8) k/uL Chloride 123 H (98-107) mmol/L Carbon Dioxide 14 L (22-30) mmol/L BUN 49 H (9-20) mg/dL Creatinine 2.23 H (0.66-1.25) mg/dL Calcium 8.0 L (8.4-10.2) mg/dL Assessment and Plan Assessment: 1. Recurrent falls. 2. Recent fall with right wrist fracture orthopedic service is following 3. Elevated troponin levels. Cardiology services consulted 4. Acute on chronic kidney disease stage III 5. 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 History of prostate cancer 7. Urinary tract infection. Urine culture ordered patient started on Rocephin Cardiology and orthopedic service is following maintained on IV Rocephin for urinary tract infection 2-D echo has been ordered Urine culture ordered PT OT and social work services consulted
--- NOTE | 2021-11-16 12:00 | ECHOF ---
Referral Reason:re: elevated trop MEASUREMENTS -------- HEIGHT: 182.9 cm WEIGHT: 71.7 kg BP: 125/75 RVIDd: 3.1 cm (< 3.3) IVSd: 1.5 cm (0.6 - 1.1) LVIDd: 4.3 cm (3.9 - 5.3) LVPWd: 1.5 cm (0.6 - 1.1) IVSs: 2.1 cm LVIDs: 2.4 cm LVPWs: 1.7 cm LA Diam: 3.8 cm (2.7 - 3.8) LAESV Index (A-L): 28.71 ml/m Ao Diam: 3.7 cm (2.0 - 3.7) AV Cusp: 2.2 cm (1.5 - 2.6) MV EXCURSION: 18.048 mm (> 18.000) MV EF SLOPE: 156 mm/s (70 - 150) EPSS: 0.4 cm MV E Juan: 0.64 m/s MV DecT: 307 ms MV A Juan: 0.91 m/s MV E/A Ratio: 0.70 RAP: 5.00 mmHg RVSP: 32.12 mmHg FINDINGS -------- Sinus rhythm. This was a technically adequate study. The left ventricular size is normal. There is moderate concentric left ventricular hypertrophy. O verall left ventricular systolic function is normal with, an EF between 60 - 65 %. The right ventricle is normal in size. LA is midly dilated 29-33ml/m2. The right atrium is normal in size. There is mild aortic valve sclerosis. The mitral valve leaflets are mildly thickened. Mild mitral annular calcification present. Mild tricuspid regurgitation present. Right ventricular systolic pressure is normal at < 35 mmHg. Trace/mild (physiologic) pulmonic regurgitation. The aortic root size is normal. IVC Not well visulized. There is no pericardial effusion. CONCLUSIONS -------- 1. The left ventricular size is normal. 2. There is moderate concentric left ventricular hypertrophy. 3. Overall left ventricular systolic function is normal with, an EF between 60 - 65 %. 4. LA is midly dilated 29-33ml/m2. 5. There is mild aortic valve sclerosis. 6. The mitral valve leaflets are mildly thickened. 7. Mild mitral annular calcification present. 8. Mild tricuspid regurgitation present. 9. Trace/mild (physiologic) pulmonic regurgitation. 10. There is no pericardial effusion. CONVERTING OPERATOR: Katiuska Arias RDCS
--- NOTE | 2021-11-16 12:38 | P.PN ---
Subjective Progress Note Date: 11/16/21 HISTORY OF PRESENT ILLNESS: Patient is pleasant 89-year-old male with a history of hypertension, hypothyroidism, prostate cancer, previous tobacco abuse, dyspnea, previous stroke, noted on CT who presents 3 days after initial fall. Patient is confusing much of history is supplied by daughter. Apparently had been doing very well and had been building a shed into September. Unfortunately had an issue where he was walking from the bathroom and then follow on 11/09 and presented to emergency department and was found to have a right radial fracture with contusion and a splint placed by orthopedic surgery. He was discharged home and unfortunately has not been himself since the initial fall. He has been confused and not able to recall his medical history like before. Additionally has been having frequent falls at home. It appears he is unstable and not actually having any syncopal episodes. Daughter admits that he likely has not been eating as much home and was diagnosed with dehydration and given IV fluids. He had a CT brain performed which showed multiple infarcts involving the left posterior parietal lobe right occipital lobe and left cerebral hemisphere with out change compared to recent exam. Chest x-ray showed atheromatous aneurysmal thoracic aorta however no acute cardiopulmonary disease. He denies any specific chest pain or pressure or shortness breath. Blood work shows white blood cell count 12.2, hemoglobin 10.9, bicarb 17 down to 13, BUN 74, creatinine 3.3 with baseline approximately 2, troponin 0.06, 0.07, 0.07. Urinalysis shows moderate blood with small leukocyte Estrace and 9 white blood cells. EKG shows normal sinus rhythm with no significant ST or T-wave abnormalities. Patient states he was evaluated by Dr. Hardwick approximately 8 months ago for dyspnea however no significant findings. 11/16/2021 Patient examined this morning at the bedside. Patient denies chest pain or pressure. Denies shortness of breath. He reports he is extremely weak and unable to ambulate and states "my legs give out on me and I fall". Vital signs are stable. Echocardiogram completed revealed ejection fraction 60-65% and mild tricuspid regurgitation. PHYSICAL EXAM: VITAL SIGNS: Reviewed. GENERAL: Well-developed in no acute distress. NECK: Supple. No JVD or thyromegaly LUNGS: Respirations even and unlabored. Lungs essentially clear to auscultation bilaterally. HEART: Regular rate and rhythm. S1 and S2 heard. EXTREMITIES: Normal range of motion. No clubbing or cyanosis. Peripheral pulses intact. No lower extremity edema ASSESSMENT: 1. Elevated troponins of unclear significance, no angina-type symptoms and most likely type II mechanism related to possible sepsis and acute kidney injury 2. Hypertension 3. Acute kidney injury, appears related to dehydration 4. Altered mental status 5. Metabolic acidosis 6. Prior stroke noted on CT 7. Multiple falls, appears mechanical and likely related to altered mental status PLAN: Continue current cardiac medications No further inpatient recommendations from a cardiac standpoint. We will sign off. Please reconsult if needed. Nurse practitioner note has been reviewed by physician. Signing provider agrees with the documented findings, assessment, and plan of care. Objective - Vital Signs Vital signs: Vital Signs Temp 98.3 F 11/16/21 09:35 Pulse 84 11/16/21 09:35 Resp 16 11/16/21 09:35 BP 138/72 11/16/21 09:35 Pulse Ox 97 11/16/21 09:35 Intake & Output 11/15/21 11/16/21 11/16/21 18:59 06:59 18:59 Intake Total 480 100 180 Output Total 1 Balance 480 99 180 Weight 72 kg Intake: Oral 480 100 180 Output: Urine/Stool Mix 1 Other: Voiding Method Diaper Diaper Incontinent Incontinent # Voids 1 2 1 # Bowel Movements 1 - Labs CBC & Chem 7: 11/16/21 08:39 11/16/21 08:39 Labs: Abnormal Lab Results - Last 24 Hours (Table) 11/16/21 11/16/21 Range/Units 08:39 08:39 RBC 3.25 L (4.30-5.90) m/uL Hgb 9.7 L (13.0-17.5) gm/dL Hct 30.3 L (39.0-53.0) % RDW 16.5 H (11.5-15.5) % Lymphocytes # 0.6 L (1.0-4.8) k/uL Chloride 123 H (98-107) mmol/L Carbon Dioxide 14 L (22-30) mmol/L BUN 49 H (9-20) mg/dL Creatinine 2.23 H (0.66-1.25) mg/dL Calcium 8.0 L (8.4-10.2) mg/dL
--- NOTE | 2021-11-16 15:13 | CDI ---
Documentation Clarification Form Date: 11/16/2021 02:53:32 PM From: Ninfa Arguelles RN CCDS Admit Date: 11/13/2021 08:40:00 PM Patient Name: Raul Botello Sr Visit Number: [id number] Discharge Date: ATTENTION: The Clinical Documentation Specialists (CDI) and [facility] Coding Staff appreciate your assistance in clarifying documentation. Please respond to the clarification below the line at the bottom and electronically sign. The CDI & [facility] Coding staff will review the response and follow-up if needed. Please note: Queries are made part of the Legal Health Record. If you have any questions, please contact the author of this message via ITS. Dr. Jose Moreno Sepsis is documented in the Cardiology Consult, 11/15 Additional clarification regarding the etiology/cause of the clinical indicators is requested. History/Risk Factors: 89-year-old male presents to the ED with recurrent falls. Medical history: recent fall with right wrist facture and prostate cancer. H&P, 11/14. Clinical Indicators: WBC:11/13 12.2 Vitals signs: 11/13 B/P 131/68; HR 98; Temp 98.7; RR 16; SpO2 95% room air UA on admission 11/13: protein 1+, blood moderate, leukocyte esterase small, wbc 9. Treatment: Antibiotics: 11/16 to current Ceftriaxone 1gm IVPB Q12H IV Bolus: 11/13 0.9ns 1L bolus In your professional opinion, please clarify if these findings signify one of the following conditions: [ ] Sepsis Ruled Out [ ] Sepsis POA [ ] Other, please specify [ ] Unable to determine SIRS Criteria: 2 or more of the following may indicate SIRS -Temperature < 96.8F (36C) or > 101.0F (38.3C) -Heart Rate > 90 bpm -Respiratory Rate > 20 breaths/min or PaCO2 < 32 mmHg -White Blood Cell Count > 12,000 or < 4,000 cells/mm3 or > 10% bands (Template Last Reviewed: December 2020 sepsis ruled out MTDD
--- NOTE | 2021-11-16 15:31 | CDI ---
Documentation Clarification Form Date: 11/16/2021 03:22:12 PM From: Ninfa Arguelles RN CCDS Admit Date: 11/13/2021 08:40:00 PM Patient Name: Raul Botello Sr Visit Number: [id number] Discharge Date: ATTENTION: The Clinical Documentation Specialists (CDI) and [facility] Coding Staff appreciate your assistance in clarifying documentation. Please respond to the clarification below the line at the bottom and electronically sign. The CDI & [facility] Coding staff will review the response and follow-up if needed. Please note: Queries are made part of the Legal Health Record. If you have any questions, please contact the author of this message via ITS. Dr. Jose Moreno Your patient has the documented symptom of confusion 11/16, Medicine progress note . Additional clarification regarding the etiology/cause of this symptom is requested. History/Risk Factors: 89-year-old male presents to the ED with recurrent falls. Medical history: recent fall with right wrist facture and prostate cancer. H&P, 11/14. Clinical Indicators: WBC:11/13 12.2 Vitals signs: 11/13 B/P 131/68; HR 98; Temp 98.7; RR 16; SpO2 95% room air UA on admission 11/13: protein 1+, blood moderate, leukocyte esterase small, Wbc 9. CT/MRI Brain: 11/13 Multiple infarcts involving the left posterior parietal lobe, right occipital lobe and left cerebellar hemisphere without change compared to recent exam. Medicine progress note: 11/16 per nursing staff he does have episodes of intermittent confusion. He was started on Rocephin for urinary tract infection urine culture ordered. Treatment: 3 to current Ceftriaxone 1gm IVPB Q12H Please clarify the type of encephalopathy, if known: [ ] Metabolic Encephalopathy related to UTI [ ] Encephalopathy Ruled out [ ] Other, please specify [ ] Unable to determine (Template Last Revised: January 2021) metabolic encephalopathy related to UTI MTDD
[2021-11-16] MEDS: atenoloL 25 MG TAB PO SCH (15:56)
--- NOTE | 2021-11-16 20:17 | P.PN ---
Subjective Progress Note Date: 11/16/21 This patient is an 89- year old male with a past medical history of hypertension, hypothyroidism, and history of prostate cancer who is currently admitted for evaluation of multiple falls and syncopal episodes. Orthopedics is consulted for evaluation of right distal radius fracture, which patient sustained during a fall on 11/09/21. Patient was evaluated in our office early last week, and was placed into a volar splint. He also sustained a significant superficial skin tear to the proximal right arm. Patient is seen and examined bedside this morning. His right wrist remains immobilized in a short arm volar splint. His right upper extremity is dressed with an chay wrap. He states the pain in his right wrist is well-controlled. He denies numbness or tingling of the RUE. There are no new complaints. Objective - Vital Signs Vital signs: Vital Signs Temp 99.3 F 11/16/21 15:55 Pulse 84 11/16/21 15:55 Resp 18 11/16/21 15:55 BP 129/65 11/16/21 15:55 Pulse Ox 95 11/16/21 15:55 Intake & Output 11/16/21 11/16/21 11/17/21 06:59 18:59 06:59 Intake Total 100 540 Output Total 1 Balance 99 540 Weight 72 kg Intake: Oral 100 540 Output: Urine/Stool Mix 1 Other: Voiding Method Diaper Diaper Incontinent Incontinent # Voids 2 2 - Exam On examination, patient is sitting up in bed in no apparent distress. He is alert and answers questions appropriately, although appears mildly confused. His head appears normocephalic and atraumatic. His breathing appears non-labored. On inspection of the right upper extremity, a short arm volar splint is intact. The arm proximal to the elbow is dressing with a light dressing and an CHAY wrap. Visible portion of the right fingers and hand are warm and well perfused with brisk capillary refill. Motor and sensory function of the RUE is grossly intact. No pain with PROM of the elbow, fingers. No pain with PROM of the bilateral hips. - Labs CBC & Chem 7: 11/16/21 08:39 11/16/21 08:39 Labs: Abnormal Lab Results - Last 24 Hours (Table) 11/16/21 11/16/21 Range/Units 08:39 08:39 RBC 3.25 L (4.30-5.90) m/uL Hgb 9.7 L (13.0-17.5) gm/dL Hct 30.3 L (39.0-53.0) % RDW 16.5 H (11.5-15.5) % Lymphocytes # 0.6 L (1.0-4.8) k/uL Chloride 123 H (98-107) mmol/L Carbon Dioxide 14 L (22-30) mmol/L BUN 49 H (9-20) mg/dL Creatinine 2.23 H (0.66-1.25) mg/dL Calcium 8.0 L (8.4-10.2) mg/dL Assessment and Plan Assessment: Right distal radius fracture Superficial skin tear proximal right upper extremity Multiple falls Plan: - Recommend repeating x-rays of the right wrist. We will order new x-rays today. - Patient should remain in short arm volar splint at this time. Keep right wrist elevated. Patient should remain non-weight bearing on RUE. He may move fingers and thumb as tolerated. - Recommend wound care consult for care of large skin tear to proximal right arm. - We will follow patient while he remains inpatient, and make recommendations as needed. After discharge he should follow-up in the office for continued treatment of right distal radius fracture.
--- NOTE | 2021-11-17 05:36 | P.CONS ---
History of Present Illness - Chief Complaint Walking difficulty, history of falls - History of Present Illness I had the opportunity to see patient for inpatient rehab consultation with regard to walking difficulty. Patient admitted to [facility] November 13 with history of falls. In fact approximately one week or earlier had fallen with right wrist fracture. Emitted for workup of syncope. Note elevated troponin, acute on chronic kidney disease and metabolic acidosis. Seen by orthopedics for the right wrist. Seen by cardiology for syncope. Chest x-ray demonstrates calcified changes thoracic aorta. Pelvic x-ray with calcific spurs. Left knee x-ray with mild arthritis. Head CT with multiple infarcts but no acute change. PT and OT prescribed. Previous functional history as elicited from patient: 89-year-old right-handed white male who is lives and 2 floor home alone. Retired. Describes independent with own simple cooking, laundry, shower and gait without device. States does drive. PCP Dr. kelsea brito. Reports his 3 sons and 4 daughters who can help. Review of Systems Review of systems: ENT: Denies sneezes or discharge. Eyes: Denies discharge or photophobia. Cardiac: Denies chest pain or palpitation. Pulmonary: Denies cough or shortness of breath. Gastrointestinal: Denies nausea, emesis, constipation, diarrhea. Genitourinary: Denies discharge or frequency. Musculoskeletal: Right arm and wrist pain. Neurologic: Walking safety concerns. Endocrine: Denies shakes or sweats. Oncology: Denies cancers. Dermatologic: Denies rash, itching, pruritus. ALLERGY/immunology: Denies sneezes, rashes. Past Medical History Past Medical History: Cancer, Thyroid Disorder Additional Past Medical History / Comment(s): Prostate Cancer, pt states "he was diagnosed 20 years ago". pt states "short-term impairment" History of Any Multi-Drug Resistant Organisms: None Reported Past Surgical History: Orthopedic Surgery Additional Past Surgical History / Comment(s): right shoulder rotator cuff repair. biopsy of prostate. pt states "he had bladder surgery with removal of tumor". TURP Past Anesthesia/Blood Transfusion Reactions: No Reported Reaction Past Psychological History: No Psychological Hx Reported Smoking Status: Former smoker Past Alcohol Use History: None Reported Past Drug Use History: None Reported - Past Family History Mother Family Medical History: Cancer Additional Family Medical History / Comment(s): Breast Cancer. Father Family Medical History: Myocardial Infarction ([place]) Medications and Allergies Home Medications Medication Instructions Recorded Confirmed Type atenoloL 25 mg PO DAILY@1500 07/19/18 11/14/21 History Imipramine [Tofranil] 10 mg PO TID 11/23/19 11/14/21 History Multivitamins, Thera [Multivitamin 1 tab PO DAILY 11/30/19 11/14/21 History (formulary)] Levothyroxine Sodium [Synthroid] 88 mcg PO DAILY 12/10/20 11/14/21 History Meclizine [Antivert] 25 mg PO TID 12/10/20 11/14/21 History Vitamin E 400 unit PO DAILY 12/10/20 11/14/21 History C,E,Zinc,Copper 11/Hiedl2t/Lut 1 cap PO DAILY@1500 11/09/21 11/14/21 History [Ocuvite Adult 50 Plus Softgel] Calcium Carbonate [Calcium] 600 mg PO DAILY@1500 11/09/21 11/14/21 History Oxybutynin Chloride 5 mg PO TID 11/09/21 11/14/21 History Tylenol #2 1 tab PO TID PRN 11/09/21 11/14/21 History predniSONE 5 mg PO DAILY 11/09/21 11/14/21 History Allergies Allergy/AdvReac Type Severity Reaction Status Date / Time No Known Allergies Allergy Verified 11/14/21 06:37 Physical Exam Vitals: Vital Signs Temp Pulse Resp BP Pulse Ox 11/17/21 03:05 83 18 137/63 96 11/16/21 23:30 99.2 F 84 17 130/63 96 11/16/21 19:55 88 17 137/61 99 11/16/21 15:55 99.3 F 84 18 129/65 95 11/16/21 12:52 98.6 F 79 18 112/66 96 11/16/21 09:35 98.3 F 84 16 138/72 97 Intake and Output 11/16/21 11/16/21 11/17/21 14:59 22:59 06:59 Intake Total 360 180 Balance 360 180 Intake: Oral 360 180 Other: Voiding Method Diaper Diaper Diaper Incontinent Incontinent Incontinent # Voids 1 2 2 # Bowel Movements 2 Skin: Atrophic, intact. General: Thin build and comfortable appearance. Head: Normocephalic, atraumatic. Eyes: Symmetric. Pupils equal round. Ears: Symmetric. Hearing within normal limits. Mouth: Clear. Neck: Supple. Carotid without bruit. Cardiac: Regular rate and rhythm. Lungs: Clear anteriorly and posteriorly. Abdomen: Soft active nontender. Extremities: Normal tone. Thin limbs. Neurological: Mental status: Alert, cooperative, pleasant. Cranial nerves: Symmetric facial tone and trapezius. Motor: Active movement and elevation left arm and both legs. Poor right arm due to concerns of pain. Sensation: Intact throughout. DTRs: Symmetric and equal throughout. Mobility: Sits with physical assistance. Results CBC & Chem 7: 11/16/21 08:39 11/16/21 08:39 Labs: Abnormal Lab Results - Last 24 Hours (Table) 11/16/21 11/16/21 Range/Units 08:39 08:39 RBC 3.25 L (4.30-5.90) m/uL Hgb 9.7 L (13.0-17.5) gm/dL Hct 30.3 L (39.0-53.0) % RDW 16.5 H (11.5-15.5) % Lymphocytes # 0.6 L (1.0-4.8) k/uL Chloride 123 H (98-107) mmol/L Carbon Dioxide 14 L (22-30) mmol/L BUN 49 H (9-20) mg/dL Creatinine 2.23 H (0.66-1.25) mg/dL Calcium 8.0 L (8.4-10.2) mg/dL Assessment and Plan (1) ANUSHA (acute kidney injury) Current Visit: Yes Status: Acute Code(s): N17.9 - ACUTE KIDNEY FAILURE, UNSPECIFIED SNOMED Code(s): 19195075 (2) Fall Current Visit: Yes Status: Acute Code(s): W19.XXXA - UNSPECIFIED FALL, INITIAL ENCOUNTER SNOMED Code(s): 8664747 (3) Pre-syncope Current Visit: Yes Status: Acute Code(s): R55 - SYNCOPE AND COLLAPSE SNOMED Code(s): 788698839 (4) Fracture of right distal radius Current Visit: No Status: Acute Code(s): S52.501A - UNSP FRACTURE OF THE LOWER END OF RIGHT RADIUS, INIT SNOMED Code(s): 896573230 (5) Hyperkalemia Current Visit: No Status: Acute Code(s): E87.5 - HYPERKALEMIA SNOMED Code(s): 62553955 Plan: At this time will await PT and OT notes a. Did discuss possible inpatient rehab. Also [place] would be to return to home and patient reports multiple children available for support.
[2021-11-17] MEDS: LEVOTHYROXINE 88 MCG TAB PO SCH (06:20)
[2021-11-17 08:15] LABS: Anisocytosis Slight; Basophils % (A) 0 %; Eosinophils # (A) 0.2 k/uL (0-0.7); Eosinophils % (A) 4 %; HCT 28.9 % (39.0-53.0); HGB 9.2 gm/dL (13.0-17.5); Hypochromasia Slight; Lymphocytes # (A) 0.5 k/uL (1.0-4.8); Lymphocytes % (A) 10 %; MCH 29.5 pg (25.0-35.0); MCHC 31.7 g/dL (31.0-37.0); MCV 92.9 fL (80.0-100.0); Mean Platelet Volume 7.4; Monocytes # (A) 0.5 k/uL (0-1.0); Monocytes % (A) 9 %; Neutrophils # (A) 3.8 k/uL (1.3-7.7); Neutrophils % (A) 74 %; Platelet Count 196 k/uL (150-450); RBC 3.11 m/uL (4.30-5.90); RDW 16.1 % (11.5-15.5); WBC 5.1 k/uL (3.8-10.6)
--- NOTE | 2021-11-17 08:37 | CDI ---
Documentation Clarification Form Date: 11/17/2021 08:16:52 AM From: Ninfa Arguelles RN CCDS Admit Date: 11/13/2021 08:40:00 PM Patient Name: Raul Botello Sr Visit Number: [id number] Discharge Date: ATTENTION: The Clinical Documentation Specialists (CDI) and [facility] Coding Staff appreciate your assistance in clarifying documentation. Please respond to the clarification below the line at the bottom and electronically sign. The CDI & [facility] Coding staff will review the response and follow-up if needed. Please note: Queries are made part of the Legal Health Record. If you have any questions, please contact the author of this message via ITS. Dr. Mackenzie Eagle Elevated troponins of unclear significance, no angina-type symptoms and most likely type II mechanism related to possible sepsis and acute kidney injury is documented 11/16, Cardiology progress note. Additional clarification regarding the etiology of the Type 2 mechanism is requested. Patient History/Risk Factors: 89-year-old male presents to the ED with complaints of multiple falls. The patient had a fall on 11/09 with right wrist fracture with splint placement. Medical History: Prostate cancer and HTN. 11/14, H&P. Clinical Indicators: Troponin: 11/13 0.068; 0.078; 11/14 0.078 EKG Results: 11/13 Normal sinus rhythm. Normal ECG Treatment: 11/13 0.9NS 1L bolus; 11/14 to current Sodium Bicarbonate 650mg PO TID, 11/16 to current Ceftriaxone 1gm IVPB Q12H. 11/14 Avoid nephrotoxins. Can you please clarify the type II mechanism? [ ] Type 2 LA due to Sepsis and acute kidney injury. [ ] Type 2 LA due to other (please specify ) [ ] Type 2 LA ruled out [ ] Unable to determine [ ] Other Condition, please specify (Template Last Revised: January 2021) Type 2 LA due to Sepsis and acute kidney injury. MTDD
[2021-11-17 08:44] LABS: Albumin 2.5 g/dL (3.5-5.0); Calcium 7.4 mg/dL (8.4-10.2); Potassium 4.4 mmol/L (3.5-5.1); Total Bilirubin 0.5 mg/dL (0.2-1.3); Total Protein 5.3 g/dL (6.3-8.2)
[2021-11-17] MEDS: SODIUM BICARBONATE TAB 650 MG TAB PO SCH ×3 (09:04→20:05)
[2021-11-17] MEDS: HEPARIN SODIUM,PORCINE/PF 5,000 UNIT/0.5 ML SYRINGE SQ SCH ×2 (09:04→20:06)
[2021-11-17] MEDS: ASPIRIN 81 MG PO SCH (09:04)
[2021-11-17] MEDS: OXYBUTYNIN CHLORIDE 5 MG TAB PO SCH ×3 (09:04→20:06)
[2021-11-17] MEDS: MECLIZINE 25 MG TAB PO SCH ×3 (09:04→20:05)
--- NOTE | 2021-11-17 10:33 | XR ---
EXAMINATION TYPE: XR wrist complete RT DATE OF EXAM: 11/17/2021 COMPARISON: 11/09/2021 HISTORY: Fracture TECHNIQUE: 4 view right wrist FINDINGS: There is a nondisplaced fracture at the distal radius. No new fractures are evident. Soft t issue swelling remains present. Fiberglas splint is present. There is some degenerative change at the first carpal metacarpal junction. Mild degenerative joint ch anges in the proximal carpal row. Continued follow-up is recommended. IMPRESSION: 1. Known distal metaphyseal radial fracture with extension to the articular surface. 2. Diffuse soft tissue swelling
[2021-11-17] MEDS: Acetaminophen-Codeine 300-30mg TAB PO PRN (13:14)
[2021-11-17] MEDS: atenoloL 25 MG TAB PO SCH (17:10)
--- NOTE | 2021-11-17 19:32 | P.PN ---
Subjective Progress Note Date: 11/17/21 I am starting care for this patient on 11/16/2020, Dr Nguyen was covering for me This is an 89-year-old male patient who initially presented to the ER due to concerns of multiple falls and possible ECF placement. Apparently patient had recent fall on 11/09/2021 in which he sustained a right wrist fracture and was splinted and was advised follow-up with orthopedic surgery. Chest x-ray in ER showed no acute pulmonary disease. Ankle and pelvic x-ray completed showing no acute fractures. Head CT completed ER showing multiple infarcts involving the left posterior lobe bright signal in left cerebral hemisphere without changes compared to recent exam. No hemorrhage. She was admitted and orthopedic and cardiology consult placed. Social work services also consulted for possible ECF placement On 11/16/2021 patient is currently resting comfortably in bed. Patient does appear alert and oriented 3. Per nursing staff patient does have episodes of intermittent confusion. He was started on Rocephin for urinary tract infection urine culture ordered. Cardiology and orthopedic services are following. 2-D echo has been ordered. At this time patient denies chest pain or shortness breath. Patient denies nausea vomiting or diarrhea. Patient denies any urinary burning or frequency On 11/17/2021 patient was seen and examined on the telemetry floor he is alert and oriented in no apparent distress there is no fever or chills no headache or dizziness no chest pain no shortness of breath no cough no nausea or vomiting no abdominal pain no diarrhea and no urinary symptoms. Patient was seen by physical therapy and occupational therapy he was evaluated by Dr. Valadez for possible rehab admission Objective - Vital Signs Vital signs: Vital Signs Temp 98.7 F 11/17/21 17:00 Pulse 95 11/17/21 17:00 Resp 18 11/17/21 17:00 BP 124/72 11/17/21 17:00 Pulse Ox 95 11/17/21 17:00 Intake & Output 11/17/21 11/17/21 11/18/21 06:59 18:59 06:59 Intake Total 358 Balance 358 Intake: Oral 358 Other: Voiding Method Diaper Diaper Incontinent Incontinent # Voids 2 1 # Bowel Movements 2 - Exam Head normocephalic Neck supple Lungs clear to auscultation bilaterally no wheezing or crackles Heart regular rate and rhythm S1-S2, no rub or gallop Abdomen is soft nontender nondistended positive bowel sounds no hep atosplenomegaly Extremities no edema. Right arm splint clean dry and intact Neuro alert and orientated to 3. Intermittent confusion - Labs CBC & Chem 7: 11/17/21 06:39 11/17/21 06:39 Labs: Abnormal Lab Results - Last 24 Hours (Table) 11/17/21 11/17/21 Range/Units 06:39 06:39 RBC 3.11 L (4.30-5.90) m/uL Hgb 9.2 L (13.0-17.5) gm/dL Hct 28.9 L (39.0-53.0) % RDW 16.1 H (11.5-15.5) % Lymphocytes # 0.5 L (1.0-4.8) k/uL Chloride 120 H (98-107) mmol/L Carbon Dioxide 12 L (22-30) mmol/L BUN 39 H (9-20) mg/dL Creatinine 1.96 H (0.66-1.25) mg/dL Calcium 7.4 L (8.4-10.2) mg/dL Total Protein 5.3 L (6.3-8.2) g/dL Albumin 2.5 L (3.5-5.0) g/dL Assessment and Plan Assessment: 1. Recurrent falls. 2. Recent fall with right wrist fracture orthopedic service is following 3. Elevated troponin levels. Cardiology services consulted 4. Acute on chronic kidney disease stage III 5. 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 History of prostate cancer 7. Urinary tract infection. Urine culture ordered patient started on Rocephin Cardiology and orthopedic service is following maintained on IV Rocephin for urinary tract infection 2-D echo has been ordered Urine culture ordered PT OT and social work services consulted
--- NOTE | 2021-11-17 20:05 | P.PN ---
Subjective Progress Note Date: 11/17/21 This patient is an 89- year old male with a past medical history of hypertension, hypothyroidism, and history of prostate cancer who is currently admitted for evaluation of multiple falls and syncopal episodes. Orthopedics is consulted for evaluation of right distal radius fracture, which patient sustained during a fall on 11/09/21. Patient was evaluated in our office early last week, and was placed into a volar splint. He also sustained a significant superficial skin tear to the proximal right arm. 11/17/21: Patient is seen and examined bedside. X-rays of the right wrist were repeated this morning. Patient states pain in the right wrist continues to be well-controlled. Patient was evaluated by Dr. Rendon today for possible inpatient rehab. Patient denies numbness, tingling of the RUE. Family is bedside. No new complaints. Objective - Vital Signs Vital signs: Vital Signs Temp 98.7 F 11/17/21 17:00 Pulse 95 11/17/21 17:00 Resp 18 11/17/21 17:00 BP 124/72 11/17/21 17:00 Pulse Ox 95 11/17/21 17:00 Intake & Output 11/17/21 11/17/21 11/18/21 06:59 18:59 06:59 Intake Total 358 Balance 358 Intake: Oral 358 Other: Voiding Method Diaper Diaper Incontinent Incontinent # Voids 2 1 # Bowel Movements 2 - Exam On examination, patient is sitting up in bed in no apparent distress. He is alert and answers questions appropriately, although appears mildly confused. His head appears normocephalic and atraumatic. His breathing appears non-labored. On inspection of the right upper extremity, a short arm volar splint is intact. The arm proximal to the elbow is dressing with a light dressing and an CHAY wrap. Dressings are removed and reveals a large benign appearing, superficial skin tear at the anterior proximal arm proximal to the elbow. No surrounding erythema. No signs of infection. This area was re-dressed with non-adherent dressing, kerlex, 4x4s and CHAY wrap. Volar short arm splint placed. Right hand and fingers and hand are warm and well perfused with brisk capillary refill. Motor and sensory function of the RUE is grossly intact. No pain with PROM of the elbow, fingers. - Labs CBC & Chem 7: 11/17/21 06:39 11/17/21 06:39 Labs: Abnormal Lab Results - Last 24 Hours (Table) 11/17/21 11/17/21 Range/Units 06:39 06:39 RBC 3.11 L (4.30-5.90) m/uL Hgb 9.2 L (13.0-17.5) gm/dL Hct 28.9 L (39.0-53.0) % RDW 16.1 H (11.5-15.5) % Lymphocytes # 0.5 L (1.0-4.8) k/uL Chloride 120 H (98-107) mmol/L Carbon Dioxide 12 L (22-30) mmol/L BUN 39 H (9-20) mg/dL Creatinine 1.96 H (0.66-1.25) mg/dL Calcium 7.4 L (8.4-10.2) mg/dL Total Protein 5.3 L (6.3-8.2) g/dL Albumin 2.5 L (3.5-5.0) g/dL Assessment and Plan Assessment: Right distal radius fracture Superficial skin tear proximal right upper extremity Multiple falls Plan: - Repeat x-rays of the right wrist show a distal radius fracture with acceptable alignment. Right upper arm dressing and short arm volar splint taken down and replaced this afternoon bedside. Recommend wound care consult prior to discharge for further wound care instructions in regards to the proximal right arm skin tear. - Patient should remain in short arm volar splint at this time. Keep right wrist elevated. Patient should remain non-weight bearing on RUE. He may move fingers and thumb as tolerated. - After discharge he should follow-up in the office in one week for repeat x- rays and continued treatment of right distal radius fracture.
[2021-11-17] MEDS: SODIUM CHLORIDE 0.45% 1,000 ML IV SCH (22:33)
[2021-11-18] MEDS: LEVOTHYROXINE 88 MCG TAB PO SCH (06:21)
[2021-11-18] MEDS: HEPARIN SODIUM,PORCINE/PF 5,000 UNIT/0.5 ML SYRINGE SQ SCH (10:21)
[2021-11-18] MEDS: SODIUM BICARBONATE TAB 650 MG TAB PO SCH (10:22)
[2021-11-18] MEDS: MECLIZINE 25 MG TAB PO SCH (10:22)
[2021-11-18] MEDS: ASPIRIN 81 MG PO SCH (10:22)
[2021-11-18] MEDS: OXYBUTYNIN CHLORIDE 5 MG TAB PO SCH (10:22)
[2021-11-18] MEDS: Acetaminophen-Codeine 300-30mg TAB PO PRN (10:30)
[2021-11-18 10:53] LABS: Albumin 2.6 g/dL (3.5-5.0); Calcium 7.2 mg/dL (8.4-10.2); Potassium 4.6 mmol/L (3.5-5.1); Total Bilirubin 0.4 mg/dL (0.2-1.3); Total Protein 5.2 g/dL (6.3-8.2)
[2021-11-18 11:08] LABS: Anisocytosis Slight; Basophils % (A) 0 %; Eosinophils # (A) 0.2 k/uL (0-0.7); Eosinophils % (A) 4 %; HCT 29.4 % (39.0-53.0); HGB 9.5 gm/dL (13.0-17.5); Hypochromasia Slight; Lymphocytes # (A) 0.7 k/uL (1.0-4.8); Lymphocytes % (A) 13 %; MCH 29.6 pg (25.0-35.0); MCHC 32.5 g/dL (31.0-37.0); MCV 91.2 fL (80.0-100.0); Mean Platelet Volume 7.7; Monocytes # (A) 0.6 k/uL (0-1.0); Monocytes % (A) 11 %; Neutrophils # (A) 3.9 k/uL (1.3-7.7); Neutrophils % (A) 71 %; Platelet Count 209 k/uL (150-450); RBC 3.22 m/uL (4.30-5.90); RDW 16.4 % (11.5-15.5); WBC 5.5 k/uL (3.8-10.6)
--- NOTE | 2021-11-18 12:26 | P.DS ---
Providers Date of admission: 11/13/21 20:40 Expected date of discharge: 11/18/21 Attending physician: Jose Moreno Consults: 11/15/21 02:07 Consult Physician Routine Consulting Provider: Roscoe Boyer Consult Reason/Comments: Distal radius fracture Do you want consulting provider notified?: Yes, Notify in am 11/16/21 11:34 Consult Physician Routine Consulting Provider: Hernandez Rendon Consult Reason/Comments: generalized weakness Do you want consulting provider notified?: Yes Primary care physician: Jose Josh [facility] Course: Discharge diagnosis 1. Recurrent falls. 2. Recent fall with right wrist fracture orthopedic service is following 3. Elevated troponin levels. Cardiology services consulted. Per cardiology unclear significance no angina type symptoms most likely type II is related to possible sepsis and acute kidney injury 4. Acute on chronic kidney disease stage III 5. 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 History of prostate cancer 7. Urinary tract infection. Urine culture ordered patient started on Rocephin Hospital course I am starting care for this patient on 11/16/2020, Dr Nguyen was covering for me This is an 89-year-old male patient who initially presented to the ER due to concerns of multiple falls and possible ECF placement. Apparently patient had recent fall on 11/09/2021 in which he sustained a right wrist fracture and was splinted and was advised follow-up with orthopedic surgery. Chest x-ray in ER showed no acute pulmonary disease. Ankle and pelvic x-ray completed showing no acute fractures. Head CT completed ER showing multiple infarcts involving the left posterior lobe bright signal in left cerebral hemisphere without changes compared to recent exam. No hemorrhage. She was admitted and orthopedic and cardiology consult placed. Social work services also consulted for possible ECF placement On 11/16/2021 patient is currently resting comfortably in bed. Patient does appear alert and oriented 3. Per nursing staff patient does have episodes of intermittent confusion. He was started on Rocephin for urinary tract infection urine culture ordered. Cardiology and orthopedic services are following. 2-D echo has been ordered. At this time patient denies chest pain or shortness breath. Patient denies nausea vomiting or diarrhea. Patient denies any urinary burning or frequency On 11/17/2021 patient was seen and examined on the telemetry floor he is alert and oriented in no apparent distress there is no fever or chills no headache or dizziness no chest pain no shortness of breath no cough no nausea or vomiting no abdominal pain no diarrhea and no urinary symptoms. Patient was seen by physical therapy and occupational therapy he was evaluated by Dr. Valadez for possible rehab admission On 11/18/2021 patient is alert and oriented 3. Patient has been cleared for discharge from cardiology standpoint. Patient also evaluated by orthopedic services. Patient should remain short arm volar splint at this time. Patient should remain nonweightbearing on right upper extremity and to follow-up outpatient in one week for repeat x-rays. At this time patient denies chest pain or shortness breath. Patient denies nausea vomiting or diarrhea. Patient denies any urinary burning or frequency. Discharge planning to possible inpatient rehab versus [facility] Patient Condition at Discharge: Stable Plan - Discharge Summary New Discharge Prescriptions: No Action atenoloL 25 mg PO DAILY@1500 Imipramine [Tofranil] 10 mg PO TID Multivitamins, Thera [Multivitamin (formulary)] 1 tab PO DAILY Vitamin E 400 unit PO DAILY Meclizine [Antivert] 25 mg PO TID Levothyroxine Sodium [Synthroid] 88 mcg PO DAILY C,E,Zinc,Copper 11/Iqihb6d/Lut [Ocuvite Adult 50 Plus Softgel] 1 cap PO DAILY@1500 predniSONE 5 mg PO DAILY Oxybutynin Chloride 5 mg PO TID Calcium Carbonate [Calcium] 600 mg PO DAILY@1500 Tylenol #2 1 tab PO TID PRN PRN Reason: Pain Discharge Medication List atenoloL 25 mg PO DAILY@1500 07/19/18 [History] Imipramine [Tofranil] 10 mg PO TID 11/23/19 [History] Multivitamins, Thera [Multivitamin (formulary)] 1 tab PO DAILY 11/30/19 [History] Levothyroxine Sodium [Synthroid] 88 mcg PO DAILY 12/10/20 [History] Meclizine [Antivert] 25 mg PO TID 12/10/20 [History] Vitamin E 400 unit PO DAILY 12/10/20 [History] C,E,Zinc,Copper 11/Hefwc0z/Lut [Ocuvite Adult 50 Plus Softgel] 1 cap PO DAILY@1500 11/09/21 [History] Calcium Carbonate [Calcium] 600 mg PO DAILY@1500 11/09/21 [History] Oxybutynin Chloride 5 mg PO TID 11/09/21 [History] Tylenol #2 1 tab PO TID PRN 11/09/21 [History] predniSONE 5 mg PO DAILY 11/09/21 [History] Follow up Appointment(s)/Referral(s): Jose Moreno MD [Primary Care Provider] - 1-2 days
[2021-11-18 13:54] VITALS: RESP 16
[2021-11-18] MEDS: SODIUM CHLORIDE 0.45% 1,000 ML IV SCH (14:40)
[2021-11-18 16:42] VITALS: BP 108/63; PULSE 85; TEMP 98.7
[2021-11-19] MEDS ORDERED: LEVOTHYROXINE 75 MCG TAB PO SCH (06:30)
== END 2021-11-18 16:19 | DRG 871 ==
LOC: EC 18:46 → 3SCARD 20:40
PROVIDERS: ADMIT Internal Medicine; ATTEND Internal Medicine
DX: A41.9 Sepsis, unspecified organism (principal); I21.A1 Myocardial infarction type 2; N17.9 Acute kidney failure, unspecified; E87.2 Acidosis; N39.0 Urinary tract infection, site not specified; D64.9 Anemia, unspecified; E03.9 Hypothyroidism, unspecified; E86.0 Dehydration; E87.5 Hyperkalemia; G89.29 Other chronic pain; I12.9 Hypertensive chronic kidney disease with stage 1 through stage 4 chronic kidney disease, or unspecified chronic kidney disease; M19.90 Unspecified osteoarthritis, unspecified site; M77.30 Calcaneal spur, unspecified foot; N18.30 Chronic kidney disease, stage 3 unspecified; Z79.899 Other long term (current) drug therapy; Z80.3 Family history of malignant neoplasm of breast; Z79.890 Hormone replacement therapy; Z20.822 Contact with and (suspected) exposure to COVID-19; Z82.49 Family history of ischemic heart disease and other diseases of the circulatory system; Z86.73 Personal history of transient ischemic attack (TIA), and cerebral infarction without residual deficits; Z91.81 History of falling; Z87.891 Personal history of nicotine dependence; Z85.46 Personal history of malignant neoplasm of prostate
CPT/HCPCS: 36415; 70450; 71046; 72170; 80048; 80053; 81001; 82607; 83605; 83735; 84439; 84443; 84484; 85025; 85610; 85730; 87086; 87635; 93005; 93306; 96360; 96361; 96372; 99285

== ENCOUNTER 2021-12-06 18:52 | Emergency (ER) | payer MEDICARE, BC ==
[2021-12-06 19:01] VITALS: BP 114/58; PULSE 71; RESP 18; TEMP 97.5
--- NOTE | 2021-12-06 19:02 | ED ---
General Adult HPI - General Chief complaint: Fall Stated complaint: Fall Time Seen by Provider: 12/06/21 19:01 Source: patient, EMS Mode of arrival: EMS Limitations: physical limitation - History of Present Illness Initial comments: Patient [facility] the ED [facility]. Patient states that he tried to ambulate to his closet without using his walker about 2 hours ago when he lost his balance and fell down. Patient states that he thinks that he may have hit his head on the ground when he fell, but he denies headache or LOC. Patient states that he knows that he should not have tried to ambulate without using his walker. Patient states that he is on "blood thinners". Patient currently denies having any pain or symptoms. Patient states that he is unsure of his last tetanus shot. Patient has sustained a right elbow skin tear per EMS. Patient denies fever or chills, generalized weakness, neck/back/extremity pain, chest pain, dyspnea, cough or cold symptoms, palpitations, syncope, abdominal pain, nausea/vomiting/diarrhea, bloody or melanotic stool, dysuria or urinary symptoms, or any other symptoms or complaints. - Related Data Home Medications Medication Instructions Recorded Confirmed atenoloL 25 mg PO DAILY@1500 07/19/18 12/06/21 Imipramine [Tofranil] 10 mg PO TID@0900,1300,2100 11/23/19 12/06/21 Multivitamins, Thera [Multivitamin 1 tab PO DAILY@0900 11/30/19 12/06/21 (formulary)] Meclizine [Antivert] 25 mg PO TID@0900,1300,2100 12/10/20 12/06/21 Vitamin E 400 unit PO DAILY@0900 12/10/20 12/06/21 Calcium Carbonate [Calcium] 600 mg PO DAILY@0900 11/09/21 12/06/21 Oxybutynin Chloride 5 mg PO TID@0900,1300,2100 11/09/21 12/06/21 predniSONE 5 mg PO DAILY@0900 11/09/21 12/06/21 Acetaminophen-Codeine 300-30mg 1 tab PO TID PRN 12/06/21 12/06/21 [Tylenol w/codeine #3] Aspirin 81 mg PO DAILY@0900 12/06/21 12/06/21 Cholestyramine (with Sugar) 4 gm PO QID PRN 12/06/21 12/06/21 [Questran] Diclofenac Sodium Gel [Voltaren 1 applic TOPICAL Q8H 12/06/21 12/06/21 Gel] Levothyroxine Sodium [Synthroid] 75 mcg PO DAILY@0600 12/06/21 12/06/21 Sodium Bicarbonate Tab 650 mg PO TID@0900,1300,2100 12/06/21 12/06/21 Vits A,C,E/Lutein/Minerals 1 tab PO DAILY@0900 12/06/21 12/06/21 [Ocuvite with Lutein Tablet] Allergies Allergy/AdvReac Type Severity Reaction Status Date / Time No Known Allergies Allergy Verified 12/06/21 19:16 Review of Systems ROS Statement: Those systems with pertinent positive or pertinent negative responses have been documented in the HPI. ROS Other: All systems not noted in ROS Statement are negative. Past Medical History Past Medical History: Cancer, Thyroid Disorder Additional Past Medical History / Comment(s): Prostate Cancer, pt states "he was diagnosed 20 years ago". pt states "short-term impairment" History of Any Multi-Drug Resistant Organisms: None Reported Past Surgical History: Orthopedic Surgery Additional Past Surgical History / Comment(s): right shoulder rotator cuff repair. biopsy of prostate. pt states "he had bladder surgery with removal of tumor". TURP Past Anesthesia/Blood Transfusion Reactions: No Reported Reaction Past Psychological History: No Psychological Hx Reported Smoking Status: Former smoker Past Alcohol Use History: None Reported Past Drug Use History: None Reported - Past Family History Mother Family Medical History: Cancer Additional Family Medical History / Comment(s): Breast Cancer. Father Family Medical History: Myocardial Infarction ([place]) General Exam Limitations: physical limitation General appearance: alert, in no apparent distress Head exam: Present: atraumatic, normocephalic Eye exam: Present: normal appearance, PERRL, EOMI ENT exam: Present: mucous membranes moist, TM's normal bilaterally Neck exam: Present: normal inspection, other (Trachea is in midline). Absent: tenderness Respiratory exam: Present: normal lung sounds bilaterally. Absent: respiratory distress, wheezes, rales, rhonchi, stridor, chest wall tenderness Cardiovascular Exam: Present: regular rate, normal rhythm, normal heart sounds, other (Normal radial and dorsalis pedis pulses bilaterally) GI/Abdominal exam: Present: soft. Absent: distended, tenderness, guarding Extremities exam: Present: other (Pelvis is stable and nontender; patient has full range of motion at bilateral elbows, hips and knees without any pain; a dermal tear and ecchymosis is noted over right lateral elbow; very superficial abrasions are noted over bilateral knees). Absent: pedal edema, calf tenderness Back exam: Present: normal inspection. Absent: tenderness Neurological exam: Present: alert, oriented X3, CN II-XII intact. Absent: motor sensory deficit Psychiatric exam: Present: normal affect, normal mood Skin exam: Present: warm, dry, normal color Course Vital Signs 12/06/21 18:54 Temperature 97.5 F L Pulse Rate 71 Respiratory 18 Rate Blood Pressure 114/58 O2 Sat by Pulse 98 Oximetry - Reevaluation(s) Reevaluation #1: 12/06/21 20:14 Patient denies development of any new pain or symptoms while in the ED. Patient remains alert and breathing comfortably. Patient is aware of all of his imaging findings. Patient feels comfortable being discharged back to [facility] at this time. Patient was counseled about falls, abrasions and skin tears. Patient was clearly explained return and follow-up instructions, and he feels comfortable with this plan. Patient was instructed to have a low threshold for return to the emergency department should he develop any concerning symptoms. Patient was also instructed to follow up closely with his primary care provider. Medical Decision Making - Medical Decision Making Patient's fall was completely mechanical in nature per patient. Patient denies LOC or syncope. Patient's imaging studies are all negative. Patient's right elbow skin tear was cleaned and dressed by ED RN. Will discharge patient back to his [facility] at this time. 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 Small old right occipital lobe cortical infarct. Disposition Clinical Impression: Fall, Multiple abrasions, Skin tear of right elbow without complication Disposition: HOME SELF-CARE Condition: Stable Instructions (If sedation given, give patient instructions): Fall Prevention for Older Adults (ED), Abrasion (ED), Skin Tear (ED) Additional Instructions: Return to the ER immediately should you develop new or worsening pain, vomiting, feeling dizzy or faint, shortness of breath, or new or worsening symptoms. Follow up closely with your primary care provider. Is patient prescribed a controlled substance at d/c from ED?: No Referrals: Jose Moreno MD [Primary Care Provider] - 1-2 days Time of Disposition: 20:14
[2021-12-06] MEDS ORDERED: DIPH,PERTUS(ACELL)TETVAC-LF 0.5 ML VIAL IM ONE (19:09)
--- NOTE | 2021-12-06 19:57 | XR ---
EXAMINATION TYPE: XR pelvis AP view DATE OF EXAM: 12/06/2021 COMPARISON: 11/13/2021 HISTORY: Pain. Fall. TECHNIQUE: Single view FINDINGS: Pelvic ring is intact. There is sclerosis involving the pubic bones bilaterally and more on the left side. There is cortical thickening. Proximal femurs are intact. Hip joints are intact. Sacr oiliac joints are intact. 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 No acute fracture seen.
--- NOTE | 2021-12-06 20:01 | XR ---
EXAMINATION TYPE: XR chest 1V portable DATE OF EXAM: 12/06/2021 COMPARISON: 11/13/2021 HISTORY: Weakness TECHNIQUE: FINDINGS: There is no heart failure nor confluent pneumonic infiltrate. Thoracic aorta is atheromatou s. There is no pleural effusion. There are no hilar masses. IMPRESSION: No active cardiopulmonary disease. Atheromatous aorta. Inspiration is improved compared t o the old exam.
--- NOTE | 2021-12-06 20:03 | XR ---
EXAMINATION TYPE: XR elbow complete RT DATE OF EXAM: 12/06/2021 COMPARISON: NONE HISTORY: Pain. Fall. TECHNIQUE: 3 views FINDINGS: There is no evidence of fracture nor dislocation. Joint spaces are normal. There is spurrin g on the olecranon process of the ulna. There is no evidence of joint effusion. IMPRESSION: Negative right elbow exam. No fracture.
--- NOTE | 2021-12-06 20:05 | XR ---
EXAMINATION TYPE: XR knee complete bilateral DATE OF EXAM: 12/06/2021 COMPARISON: NONE HISTORY: Knee pain TECHNIQUE: 6 views FINDINGS: There is some narrowing of the medial joint spaces. There is no fracture nor dislocation. T here is no sign of joint effusion. 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 No fracture seen.
--- NOTE | 2021-12-06 20:08 | CT ---
EXAMINATION TYPE: CT brain wo con DATE OF EXAM: 12/06/2021 COMPARISON: 11/13/2021 HISTORY: fall, no LOC CT DLP: 1137.4 mGycm Automated exposure control for dose reduction was used. There is patchy hypodensity in large areas of the white matter both cerebral hemispheres. This involv es the left parietal and posterior temporal lobe and the right occipital lobe and the right frontal l obe. There is cortical thinning right frontal lobe consistent with an old infarct. There are similar changes in the right occipital lobe cortex. There is no midline shift. There is no evidence of intrac ranial hemorrhage. Calvarium is intact. 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 Small old right oc cipital lobe cortical infarct.
[2021-12-06] MEDS ORDERED: BACITRACIN OINT 1 EACH PACKET TOPICAL ONE (21:18)
== END 2021-12-06 21:31 | disposition home or self-care (01) ==
LOC: EC 18:52
DX: S51.011A Laceration without foreign body of right elbow, initial encounter (principal); S80.211A Abrasion, right knee, initial encounter; S80.212A Abrasion, left knee, initial encounter; F17.200 Nicotine dependence, unspecified, uncomplicated; T14.8XXA Other injury of unspecified body region, initial encounter; W19.XXXA Unspecified fall, initial encounter
CPT/HCPCS: 70450; 71045; 72170; 90471; 90715; 99284

== ENCOUNTER 2022-01-01 08:42 | Inpatient (IN) | payer MEDICARE, BC ==
--- NOTE | 2022-01-01 08:53 | ED ---
General Adult HPI - General Stated complaint: SOB Time Seen by Provider: 01/01/22 08:45 Source: patient, EMS, RN notes reviewed Mode of arrival: EMS Limitations: no limitations - History of Present Illness Initial comments: Patient is a pleasant 89-year-old male presenting to the emergency department difficulty in breathing. Onset of symptoms was 2 or 3 days ago. No cough. P atient does feel short of breath. Patient reportedly had low oxygen levels per nursing facility. Patient is a nursing facility secondary to history of wrist. Patient did have cast however that has been removed. No history of chronic lung disease. No fever or cough. No leg pain or leg swelling. - Related Data Home Medications Medication Instructions Recorded Confirmed atenoloL 25 mg PO DAILY@1500 07/19/18 01/01/22 Imipramine [Tofranil] 10 mg PO TID@0900,1300,2100 11/23/19 01/01/22 Multivitamins, Thera [Multivitamin 1 tab PO DAILY@0900 11/30/19 01/01/22 (formulary)] Meclizine [Antivert] 25 mg PO TID@0900,1300,2100 12/10/20 01/01/22 Vitamin E 400 unit PO DAILY@0900 12/10/20 01/01/22 Calcium Carbonate [Calcium] 600 mg PO DAILY@0900 11/09/21 01/01/22 Oxybutynin Chloride 5 mg PO TID@0900,1300,2100 11/09/21 01/01/22 predniSONE 5 mg PO DAILY@0900 11/09/21 01/01/22 Acetaminophen-Codeine 300-30mg 1 tab PO TID PRN 12/06/21 01/01/22 [Tylenol w/codeine #3] Aspirin 81 mg PO DAILY@0900 12/06/21 01/01/22 Cholestyramine (with Sugar) 4 gm PO QID PRN 12/06/21 01/01/22 [Questran] Diclofenac Sodium Gel [Voltaren 1 applic TOPICAL Q8H 12/06/21 01/01/22 Gel] Levothyroxine Sodium [Synthroid] 75 mcg PO DAILY@0600 12/06/21 01/01/22 Sodium Bicarbonate Tab 650 mg PO TID@0900,1300,2100 12/06/21 01/01/22 Vits A,C,E/Lutein/Minerals 1 tab PO DAILY@0900 12/06/21 01/01/22 [Ocuvite with Lutein Tablet] Z-Guard 1 applic TOPICAL Q12H 01/01/22 01/01/22 Allergies Allergy/AdvReac Type Severity Reaction Status Date / Time No Known Allergies Allergy Verified 01/01/22 08:58 Review of Systems ROS Statement: Those systems with pertinent positive or pertinent negative responses have been documented in the HPI. ROS Other: All systems not noted in ROS Statement are negative. Constitutional: Denies: fever Eyes: Denies: eye pain ENT: Denies: ear pain Respiratory: Reports: as per HPI, dyspnea. Denies: cough Cardiovascular: Denies: chest pain Endocrine: Denies: fatigue Gastrointestinal: Denies: abdominal pain Genitourinary: Denies: dysuria Musculoskeletal: Denies: back pain Skin: Denies: rash Neurological: Denies: weakness Past Medical History Past Medical History: Cancer, Thyroid Disorder Additional Past Medical History / Comment(s): Prostate Cancer, pt states "he was diagnosed 20 years ago". pt states "short-term impairment" History of Any Multi-Drug Resistant Organisms: None Reported Past Surgical History: Orthopedic Surgery Additional Past Surgical History / Comment(s): right shoulder rotator cuff repair. biopsy of prostate. pt states "he had bladder surgery with removal of tumor". TURP Past Anesthesia/Blood Transfusion Reactions: No Reported Reaction Past Psychological History: No Psychological Hx Reported Smoking Status: Former smoker Past Alcohol Use History: None Reported Past Drug Use History: None Reported - Past Family History Mother Family Medical History: Cancer Additional Family Medical History / Comment(s): Breast Cancer. Father Family Medical History: Myocardial Infarction ([place]) General Exam Limitations: no limitations General appearance: alert, in no apparent distress Head exam: Present: normocephalic Eye exam: Present: normal appearance Neck exam: Present: normal inspection Respiratory exam: Present: normal lung sounds bilaterally. Absent: wheezes, chest wall tenderness Cardiovascular Exam: Present: regular rate, normal rhythm GI/Abdominal exam: Present: soft. Absent: tenderness Extremities exam: Present: normal inspection. Absent: tenderness, pedal edema, calf tenderness Neurological exam: Present: alert Psychiatric exam: Present: normal affect, normal mood Skin exam: Present: cyanosis (Distal fingertips) Course Vital Signs 0201/01/22 01/01/22 08:43 09:12 09:26 Temperature 97.8 F Pulse Rate 82 94 Respiratory 18 18 Rate Blood Pressure 129/69 111/65 O2 Sat by Pulse 100 99 98 Oximetry EKG Findings - EKG Comments: EKG Findings:: Normal sinus rhythm with a rate of 82. TN 152. QRS 91. QT 367. QTC 406. Normal axis. Normal QRS. No acute ST change. Medical Decision Making - Medical Decision Making Patient reevaluated and resting comfortably in bed. Pulse ox 96% on room air. Patient and family updated on results and plan. Case discussed with Dr. Moreno, who will admit his patient. Patient has mildly elevated troponin, history of similar previously with associated renal insufficiency making this is inconclusive. Patient also has some elevation of BNP. Patient also has elevated d-dimer unable to do CT secondary to elevated creatinine. V/Q be ordered. Consults will be placed for pulmonary and cardiology. - Lab Data Result diagrams: 01/01/22 08:54 01/01/22 08:54 Lab Results 01/01/22 01/01/22 01/01/22 Range/Units 08:54 08:54 08:54 WBC 7.5 (3.8-10.6) k/uL RBC 3.26 L (4.30-5.90) m/uL Hgb 9.5 L (13.0-17.5) gm/dL Hct 29.7 L (39.0-53.0) % MCV 91.1 (80.0-100.0) fL MCH 29.2 (25.0-35.0) pg MCHC 32.1 (31.0-37.0) g/dL RDW 16.3 H (11.5-15.5) % Plt Count 248 (150-450) k/uL MPV 7.3 Neutrophils % 78 % Lymphocytes % 9 % Monocytes % 9 % Eosinophils % 2 % Basophils % 0 % Neutrophils # 5.9 (1.3-7.7) k/uL Lymphocytes # 0.7 L (1.0-4.8) k/uL Monocytes # 0.7 (0-1.0) k/uL Eosinophils # 0.1 (0-0.7) k/uL Basophils # 0.0 (0-0.2) k/uL Hypochromasia Slight Anisocytosis Slight PT 11.8 (9.0-12.0) sec INR 1.1 (<1.2) APTT 26.0 (22.0-30.0) sec D-Dimer 2.26 H (<0.60) mg/L FEU Sodium 139 (137-145) mmol/L Potassium 3.7 (3.5-5.1) mmol/L Chloride 107 (98-107) mmol/L Carbon Dioxide 26 (22-30) mmol/L Anion Gap 6 mmol/L BUN 42 H (9-20) mg/dL Creatinine 2.30 H (0.66-1.25) mg/dL Est GFR (CKD-EPI)AfAm 28 (>60 ml/min/1.73 sqM) Est GFR (CKD-EPI)NonAf 24 (>60 ml/min/1.73 sqM) Glucose 81 (74-99) mg/dL Plasma Lactic Acid Mitesh (0.7-2.0) mmol/L Calcium 8.7 (8.4-10.2) mg/dL Total Bilirubin 1.0 (0.2-1.3) mg/dL AST 37 (17-59) U/L ALT 15 (4-49) U/L Alkaline Phosphatase 86 (38-126) U/L Troponin I (0.000-0.034) ng/mL NT-Pro-B Natriuret Pep pg/mL Total Protein 5.9 L (6.3-8.2) g/dL Albumin 2.9 L (3.5-5.0) g/dL Coronavirus (PCR) (Not Detectd) 01/01/22 01/01/22 01/01/22 Range/Units 08:54 08:54 08:54 WBC (3.8-10.6) k/uL RBC (4.30-5.90) m/uL Hgb (13.0-17.5) gm/dL Hct (39.0-53.0) % MCV (80.0-100.0) fL MCH (25.0-35.0) pg MCHC (31.0-37.0) g/dL RDW (11.5-15.5) % Plt Count (150-450) k/uL MPV Neutrophils % % Lymphocytes % % Monocytes % % Eosinophils % % Basophils % % Neutrophils # (1.3-7.7) k/uL Lymphocytes # (1.0-4.8) k/uL Monocytes # (0-1.0) k/uL Eosinophils # (0-0.7) k/uL Basophils # (0-0.2) k/uL Hypochromasia Anisocytosis PT (9.0-12.0) sec INR (<1.2) APTT (22.0-30.0) sec D-Dimer (<0.60) mg/L FEU Sodium (137-145) mmol/L Potassium (3.5-5.1) mmol/L Chloride (98-107) mmol/L Carbon Dioxide (22-30) mmol/L Anion Gap mmol/L BUN (9-20) mg/dL Creatinine (0.66-1.25) mg/dL Est GFR (CKD-EPI)AfAm (>60 ml/min/1.73 sqM) Est GFR (CKD-EPI)NonAf (>60 ml/min/1.73 sqM) Glucose (74-99) mg/dL Plasma Lactic Acid Mitesh 1.4 (0.7-2.0) mmol/L Calcium (8.4-10.2) mg/dL Total Bilirubin (0.2-1.3) mg/dL AST (17-59) U/L ALT (4-49) U/L Alkaline Phosphatase (38-126) U/L Troponin I 0.044 H* (0.000-0.034) ng/mL NT-Pro-B Natriuret Pep 6970 pg/mL Total Protein (6.3-8.2) g/dL Albumin (3.5-5.0) g/dL Coronavirus (PCR) (Not Detectd) 01/01/22 Range/Units 08:54 WBC (3.8-10.6) k/uL RBC (4.30-5.90) m/uL Hgb (13.0-17.5) gm/dL Hct (39.0-53.0) % MCV (80.0-100.0) fL MCH (25.0-35.0) pg MCHC (31.0-37.0) g/dL RDW (11.5-15.5) % Plt Count (150-450) k/uL MPV Neutrophils % % Lymphocytes % % Monocytes % % Eosinophils % % Basophils % % Neutrophils # (1.3-7.7) k/uL Lymphocytes # (1.0-4.8) k/uL Monocytes # (0-1.0) k/uL Eosinophils # (0-0.7) k/uL Basophils # (0-0.2) k/uL Hypochromasia Anisocytosis PT (9.0-12.0) sec INR (<1.2) APTT (22.0-30.0) sec D-Dimer (<0.60) mg/L FEU Sodium (137-145) mmol/L Potassium (3.5-5.1) mmol/L Chloride (98-107) mmol/L Carbon Dioxide (22-30) mmol/L Anion Gap mmol/L BUN (9-20) mg/dL Creatinine (0.66-1.25) mg/dL Est GFR (CKD-EPI)AfAm (>60 ml/min/1.73 sqM) Est GFR (CKD-EPI)NonAf (>60 ml/min/1.73 sqM) Glucose (74-99) mg/dL Plasma Lactic Acid Mitesh (0.7-2.0) mmol/L Calcium (8.4-10.2) mg/dL Total Bilirubin (0.2-1.3) mg/dL AST (17-59) U/L ALT (4-49) U/L Alkaline Phosphatase (38-126) U/L Troponin I (0.000-0.034) ng/mL NT-Pro-B Natriuret Pep pg/mL Total Protein (6.3-8.2) g/dL Albumin (3.5-5.0) g/dL Coronavirus (PCR) Not Detected (Not Detectd) - Radiology Data Radiology results: image reviewed (Chest x-ray reveals no acute process) Disposition Clinical Impression: Dyspnea Disposition: ADMITTED IP TO THIS HOSP Is patient prescribed a controlled substance at d/c from ED?: No Referrals: Jose Moreno MD [Primary Care Provider] - 1-2 days Decision Time: 10:28
[2022-01-01 09:09] LABS: Anisocytosis Slight; Basophils % (A) 0 %; Eosinophils # (A) 0.1 k/uL (0-0.7); Eosinophils % (A) 2 %; HCT 29.7 % (39.0-53.0); HGB 9.5 gm/dL (13.0-17.5); Hypochromasia Slight; Lymphocytes # (A) 0.7 k/uL (1.0-4.8); Lymphocytes % (A) 9 %; MCH 29.2 pg (25.0-35.0); MCHC 32.1 g/dL (31.0-37.0); MCV 91.1 fL (80.0-100.0); Mean Platelet Volume 7.3; Monocytes # (A) 0.7 k/uL (0-1.0); Monocytes % (A) 9 %; Neutrophils # (A) 5.9 k/uL (1.3-7.7); Neutrophils % (A) 78 %; Platelet Count 248 k/uL (150-450); RBC 3.26 m/uL (4.30-5.90); RDW 16.3 % (11.5-15.5); WBC 7.5 k/uL (3.8-10.6)
--- NOTE | 2022-01-01 09:11 | XR ---
EXAMINATION TYPE: XR chest 2V DATE OF EXAM: 01/01/2022 COMPARISON: 12/06/21 HISTORY: Shortness of breath TECHNIQUE: Frontal and lateral views of the chest are obtained. FINDINGS: Scattered senescent parenchymal changes noted. Hyperinflation compatible with COPD. No evidence for infiltrate. No evidence for atelectasis. Heart size is stable. Mediastinal structures are stable and grossly unremarkable. There is unfolding of the thoracic aorta. No evidence for hilar prominence. Degenerative changes dorsal spine. IMPRESSION: 1. No evidence for acute pulmonary disease.
[2022-01-01 09:21] LABS: Albumin 2.9 g/dL (3.5-5.0); Calcium 8.7 mg/dL (8.4-10.2); Potassium 3.7 mmol/L (3.5-5.1); Total Protein 5.9 g/dL (6.3-8.2)
[2022-01-01 09:26] LABS: INR 1.1 (<1.2); Prothrombin Time 11.8 sec (9.0-12.0)
[2022-01-01] MEDS ORDERED: NALOXONE 0.4 MG/ML 1 ML VIAL IV PRN (10:30)
[2022-01-01] MEDS ORDERED: HEPARIN SODIUM 1,000 UN/ML (10ML VL) IV ONE (10:30)
[2022-01-01] MEDS ORDERED: HEPARIN SODIUM 1,000 UN/ML (10ML VL) IV PRN (10:30)
[2022-01-01] MEDS: HEPARIN SOD,PORK IN 0.45% NACL 25,000 UNIT in 0.45% NACL 1 250ML.BAG IV SCH (10:51)
[2022-01-01] MEDS ORDERED: CHOLESTYRAMINE (WITH SUGAR) 4 GM PACKET PO PRN (10:51)
[2022-01-01] MEDS ORDERED: Acetaminophen-Codeine 300-30mg TAB PO PRN (10:51)
--- NOTE | 2022-01-01 10:56 | P.HPIM ---
History of Present Illness H&P Date: 01/01/22 Chief Complaint: Shortness of breath This is a 89-year-old male patient presented to the concerns of shortness breath and abnormal labs. Patient currently is residing at [facility]. Patient started currently at bedside reports the patient has been having symptoms inte rmittently over the past 2-3 days with no cough. According to ER report patient did have low oxygen levels a nursing facility. Patient has past medical history of prostate cancer, thyroid disorder and recent right wrist fracture. Patient also has been having frequent falls at [facility]. Patient also reported to have on-and-off swelling to lower extremities. COVID-19 was negative. Patient was found to have mildly elevated troponin 0.044, BNP 6960, creatinine 2.30 and bun 42. Patient also with elevated d-dimer 2.6. Due to elevated creatinine VQ scan has been ordered to rule out PE. Patient did have recent 2-D echo completed within the past few months showing an EF of 60-65%. IV heparin has been ordered. Cardiology and pulmonary services have been consulted. Current temperature 97.8 pulse rate 82, respiratory rate 18 blood pressure 129/69 patient currently satting 90% on room air Review of Systems please refer to HPI otherwise unremarkable Past Medical History Past Medical History: Cancer, Thyroid Disorder Additional Past Medical History / Comment(s): Prostate Cancer, pt states "he was diagnosed 20 years ago". pt states "short-term impairment" History of Any Multi-Drug Resistant Organisms: None Reported Past Surgical History: Orthopedic Surgery Additional Past Surgical History / Comment(s): right shoulder rotator cuff repair. biopsy of prostate. pt states "he had bladder surgery with removal of tumor". TURP Past Anesthesia/Blood Transfusion Reactions: No Reported Reaction Past Psychological History: No Psychological Hx Reported Smoking Status: Former smoker Past Alcohol Use History: None Reported Past Drug Use History: None Reported - Past Family History Mother Family Medical History: Cancer Additional Family Medical History / Comment(s): Breast Cancer. Father Family Medical History: Myocardial Infarction ([place]) Medications and Allergies Home Medications Medication Instructions Recorded Confirmed Type RX: atenoloL 25 mg PO DAILY@1500 07/19/18 01/01/22 History RX: Imipramine [Tofranil] 10 mg PO TID@0900,1300,2100 11/23/19 01/01/22 History RX: Multivitamins, Thera 1 tab PO DAILY@0900 11/30/19 01/01/22 History [Multivitamin (formulary)] RX: Meclizine [Antivert] 25 mg PO TID@0900,1300,2100 12/10/20 01/01/22 History RX: Vitamin E 400 unit PO DAILY@0900 12/10/20 01/01/22 History RX: Calcium Carbonate [Calcium] 600 mg PO DAILY@0900 11/09/21 01/01/22 History RX: Oxybutynin Chloride 5 mg PO TID@0900,1300,209911/09/21 01/01/22 History RX: predniSONE 5 mg PO DAILY@0900 11/09/21 01/01/22 History Acetaminophen-Codeine 300-30mg 1 tab PO TID PRN 12/06/21 01/01/22 History [Tylenol w/codeine #3] Cholestyramine (with Sugar) 4 gm PO QID PRN 12/06/21 01/01/22 History [Questran] Diclofenac Sodium Gel [Voltaren 1 applic TOPICAL Q8H 12/06/21 01/01/22 History Gel] RX: Aspirin 81 mg PO DAILY@0900 12/06/21 01/01/22 History RX: Levothyroxine Sodium 75 mcg PO DAILY@0600 12/06/21 01/01/22 History [Synthroid] RX: Sodium Bicarbonate Tab 650 mg PO TID@0900,1300,2100 12/06/21 01/01/22 History Vits A,C,E/Lutein/Minerals 1 tab PO DAILY@0900 12/06/21 01/01/22 History [Ocuvite with Lutein Tablet] Z-Guard 1 applic TOPICAL Q12H 01/01/22 01/01/22 History Allergies Allergy/AdvReac Type Severity Reaction Status Date / Time No Known Allergies Allergy Verified 01/01/22 08:58 Physical Exam Vitals: Vital Signs Temp Pulse Resp BP Pulse Ox 01/01/22 09:26 94 18 111/65 98 01/01/22 09:12 99 01/01/22 08:43 97.8 F 82 18 129/69 100 Intake and Output 12/31/21 01/01/22 01/01/22 22:59 06:59 14:59 Other: Weight 70.307 kg Head normocephalic Neck supple Lungs clear to auscultation bilaterally no wheezing or crackles Heart regular rate and rhythm S1-S2, no rub or gallop Abdomen is soft nontender nondistended positive bowel sounds no hepatosplenomegaly Extremities no edema. +1 lower extremity edema Neuro alert and orientated to 3. Intermittent episodes of confusion Results CBC & Chem 7: 01/01/22 08:54 01/01/22 08:54 Labs: Abnormal Lab Results - Last 24 Hours (Table) 01/01/22 01/01/22 01/01/22 Range/Units 08:54 08:54 08:54 RBC 3.26 L (4.30-5.90) m/uL Hgb 9.5 L (13.0-17.5) gm/dL Hct 29.7 L (39.0-53.0) % RDW 16.3 H (11.5-15.5) % Lymphocytes # 0.7 L (1.0-4.8) k/uL D-Dimer 2.26 H (<0.60) mg/L FEU BUN 42 H (9-20) mg/dL Creatinine 2.30 H (0.66-1.25) mg/dL Troponin I (0.000-0.034) ng/mL Total Protein 5.9 L (6.3-8.2) g/dL Albumin 2.9 L (3.5-5.0) g/dL 01/01/22 Range/Units 08:54 RBC (4.30-5.90) m/uL Hgb (13.0-17.5) gm/dL Hct (39.0-53.0) % RDW (11.5-15.5) % Lymphocytes # (1.0-4.8) k/uL D-Dimer (<0.60) mg/L FEU BUN (9-20) mg/dL Creatinine (0.66-1.25) mg/dL Troponin I 0.044 H* (0.000-0.034) ng/mL Total Protein (6.3-8.2) g/dL Albumin (3.5-5.0) g/dL Assessment and Plan Assessment: 1. Shortness of breath. Chest x-ray was negative. COVID-19 negative. 2. Mildly elevated troponin. Troponin 0.044. Cardiology services have been consulted heparin drip has been ordered 3. Acute on chronic kidney disease stage III. Creatinine elevated at 2.3 4. Elevated d-dimer. VQ scan has been ordered 5. Elevated BNP at 6970. Patient recently had 2-D echo completed showing EF of 60-65%. Cardiology services have been consulted 6. History of recurrent falls 7. History of right wrist fracture 8. History of prostate cancer Cardiology and pulmonary services Patient to be started on IV heparin VQ scan ordered Repeat labs ordered Time with Patient: Greater than 30 (Greater than 60% of the total time spent in counseling and coordination of care)
[2022-01-01] MEDS ORDERED: NON FORMULARY DRUG (Z-Guard 1 APPLIC) TOPICAL SCH (11:00)
--- NOTE | 2022-01-01 11:57 | P.CNPUL ---
History of Present Illness Consult date: 01/01/22 Requesting physician: Jose Moreno Reason for consult: dyspnea, hypoxemia Chief complaint: Shortness of breath History of present illness: This is a pleasant 89-year-old male patient who is residing at [facility] [place] sustaining a fall and right wrist fracture the first of the year. He also has a history of previous multiple CVAs/TIAs, prostate cancer, chronic kidney disease stage III, remote smoking history. This morning the patient was found to have dusky fingers and ears and was found to be hypoxemic in the 50s at the [facility]. He was transferred here for further evaluation. Chest x-ray reveals no acute pulmonary process. The patient has been in the 90s since arriving to the emergency room. He is currently 98% on room air. He's afebrile. Hemodynamically stable. White count 7.5. Hemoglobin 9.5. D-dimer 2.26. Sodium 139. Potassium 3.7. BUN 42. Creatinine 2.30. Lactic acid 1.4. AST 37. ALT 15. Troponin 0.044. ProBNP 6970. Quinetro virus by PCR not detected. He's been initiated on a heparin drip. Unable to do a CT angiogram due to the renal failure. VQ scan is pending. He is seen today in consultation in the emergency room. He is currently sitting up on a stretcher. Awake and alert in no acute distress. Denies any worsening shortness of breath, cough or congestion. No hemoptysis. No chest pain or palpitations. Continued on room air oxygen. Review of Systems REVIEW OF SYSTEMS: CONSTITUTIONAL: Denies any recent significant weight loss or weight gain. EYES: Denies change in vision. EARS, NOSE, MOUTH, THROAT: Denies headaches, denies sore throat. CARDIOVASCULAR: Denies chest pain, palpitations or syncopal episodes. RESPIRATORY: Positive for shortness of breath, no cough, congestion or hemoptysis. GASTROINTESTINAL: Denies change in appetite, denies abdominal pain GENITOURINARY: Denies hematuria, denies infections. MUSKULOSKELETAL: Denies pain, denies swelling. INTEGUMENTARY: Denies rash, denies eczema. NEUROLOGICAL: Denies recent memory loss, no recent seizure activity. PSYCHIATRIC: Denies anxiety, denies depression. HEMATOLOGIC/LYMPHATIC: Denies anemia, denies enlarged lymph nodes. 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 History of Any Multi-Drug Resistant Organisms: None Reported Past Surgical History: Bladder Surgery, Breast Surgery, Orthopedic Surgery, Prostate Surgery Additional Past Surgical History / Comment(s): 3 TURPs, bladder tumor resections, prostate biopsy, circumcism, colonoscopy, hemorrhoidectomy, R rotator cuff repair/excision of bone Past Anesthesia/Blood Transfusion Reactions: No Reported Reaction Additional Past Anesthesia/Blood Transfusion Reaction / Comment(s): Pt has received blood in past without reaction. Smoking Status: Former smoker - Past Family History Mother Family Medical History: Cancer Additional Family Medical History / Comment(s): Breast Cancer. Father Family Medical History: Myocardial Infarction ([place]) Medications and Allergies Home Medications Medication Instructions Recorded Confirmed Type atenoloL 25 mg PO DAILY@1500 07/19/18 01/01/22 History Imipramine [Tofranil] 10 mg PO TID@0900,1300,2100 11/23/19 01/01/22 History Multivitamins, Thera [Multivitamin 1 tab PO DAILY@0900 11/30/19 01/01/22 History (formulary)] Meclizine [Antivert] 25 mg PO TID@0900,1300,2100 12/10/20 01/01/22 History Vitamin E 400 unit PO DAILY@0900 12/10/20 01/01/22 History Calcium Carbonate [Calcium] 600 mg PO DAILY@0900 11/09/21 01/01/22 History Oxybutynin Chloride 5 mg PO TID@0900,1300,2100 11/09/21 01/01/22 History predniSONE 5 mg PO DAILY@0900 11/09/21 01/01/22 History Acetaminophen-Codeine 300-30mg 1 tab PO TID PRN 12/06/21 01/01/22 History [Tylenol w/codeine #3] Aspirin 81 mg PO DAILY@0900 12/06/21 01/01/22 History Cholestyramine (with Sugar) 4 gm PO QID PRN 12/06/21 01/01/22 History [Questran] Diclofenac Sodium Gel [Voltaren 1 applic TOPICAL Q8H 12/06/21 01/01/22 History Gel] Levothyroxine Sodium [Synthroid] 75 mcg PO DAILY@0600 12/06/21 01/01/22 History Sodium Bicarbonate Tab 650 mg PO TID@0900,1300,2100 12/06/21 01/01/22 History Vits A,C,E/Lutein/Minerals 1 tab PO DAILY@0900 12/06/21 01/01/22 History [Ocuvite with Lutein Tablet] Z-Guard 1 applic TOPICAL Q12H 01/01/22 01/01/22 History Allergies Allergy/AdvReac Type Severity Reaction Status Date / Time No Known Allergies Allergy Verified 01/01/22 08:58 Physical Exam Vitals: Vital Signs Temp Pulse Resp BP Pulse Ox 01/01/22 09:26 94 18 111/65 98 01/01/22 09:12 99 01/01/22 08:43 97.8 F 82 18 129/69 100 Intake and Output 12/31/21 01/01/22 01/01/22 22:59 06:59 14:59 Other: Weight 70.307 kg GENERAL EXAM: Alert, pleasant 89-year-old male patient, on room air, comfortable in no apparent distress. HEAD: Normocephalic. EYES: Normal reaction of pupils, equal size. NOSE: Clear with pink turbinates. THROAT: No erythema or exudates. NECK: No masses, no JVD. CHEST: No chest wall deformity. LUNGS: Equal air entry with no crackles, wheeze, rhonchi or dullness. CVS: S1 and S2 normal with no audible murmur, regular rhythm. ABDOMEN: No hepatosplenomegaly, normal bowel sounds, no guarding or rigidity. SPINE: No scoliosis or deformity SKIN: No rashes. Areas of ecchymosis CENTRAL NERVOUS SYSTEM: No focal deficits, tone is normal in all 4 extremities. EXTREMITIES: There is no peripheral edema. No clubbing, no cyanosis. Peripheral pulses are intact. Results - Laboratory Findings CBC and BMP: 01/01/22 08:54 01/01/22 08:54 PT/INR, D-dimer PT 11.8 sec (9.0-12.0) 01/01/22 08:54 INR 1.1 (<1.2) 01/01/22 08:54 D-Dimer 2.26 mg/L FEU (<0.60) H 01/01/22 08:54 Abnormal lab findings: Abnormal Labs 01/01/22 01/01/22 01/01/22 08:54 08:54 08:54 RBC 3.26 L Hgb 9.5 L Hct 29.7 L RDW 16.3 H Lymphocytes # 0.7 L D-Dimer 2.26 H BUN 42 H Creatinine 2.30 H Troponin I Total Protein 5.9 L Albumin 2.9 L 01/01/22 08:54 RBC Hgb Hct RDW Lymphocytes # D-Dimer BUN Creatinine Troponin I 0.044 H* Total Protein Albumin - Diagnostic Findings Chest x-ray: image reviewed (No acute pulmonary process) Assessment and Plan Assessment: 1 Shortness of breath with reported hypoxemia at the [facility]CF. Currently on room air with O2 saturation 98%. Chest x-ray reveals no acute pulmonary process. Elevated d-dimer at 2.26. Awaiting VQ scan. Initiated on a heparin drip. 2 Acute on chronic renal failure with a creatinine of 2.30, GFR 24 3 Troponin leak 4 Anemia, current hemoglobin 9.5 5 Recent admission for a right distal radius fracture, volar splint utilized. No surgical intervention 6 History of prostate cancer with previous TURP 7 Former smoker Plan: The patient was seen and evaluated Chest x-ray and labs reviewed Awaiting VQ scan Continue heparin drip for now Currently on room air and stable We will continue to follow and make further recommendations based on his clinical status I, the cosigning physician, performed a history & physical examination of the patient. Lungs sounds are clear. Maintaining good O2 saturations in the 90s on room air. I discussed the assessment and plan of care with my nurse practitioner, Jada Blanchard. I attest to the above consultation as dictated by her. I have personally seen and examined the patient, performed the documentation and the assessment and plan as written. Number of minutes spent on the visit: 20.
[2022-01-01 13:11] LABS: Albumin 2.7 g/dL (3.5-5.0); Calcium 8.6 mg/dL (8.4-10.2); Potassium 3.7 mmol/L (3.5-5.1); Total Bilirubin 0.9 mg/dL (0.2-1.3); Total Protein 5.5 g/dL (6.3-8.2)
[2022-01-01] MEDS: SODIUM BICARBONATE TAB 650 MG TAB PO SCH ×2 (14:13→20:08)
[2022-01-01] MEDS: OXYBUTYNIN CHLORIDE 5 MG TAB PO SCH ×2 (14:13→20:08)
[2022-01-01] MEDS: MECLIZINE 25 MG TAB PO SCH ×2 (14:13→20:08)
--- NOTE | 2022-01-01 17:52 | NM ---
EXAMINATION TYPE: NM pul vent and perfuse DATE OF EXAM: 01/01/2022 COMPARISON: NONE HISTORY: Short of breath TECHNIQUE: Utilizing inhalation of 65 mCi Tc 99m DTPA aerosol and intravenous injection of 4.7 mCi o f Tc 99m MAA, ventilation and perfusion images are acquired post injection in multiple projections. FINDINGS: There are matching subsegmental defects in the periphery of both lungs and more noticeable at both myra ng bases. There is no segmental type of perfusion mismatch. IMPRESSION: There is evidence There are new matching defects in the left lower lobe compared to old exam. For bilateral airway dise ase. There is a low probability of pulmonary embolism.
[2022-01-01] MEDS: atenoloL 25 MG TAB PO SCH (18:19)
[2022-01-01] MEDS: IMIPRAMINE 10 MG TAB PO SCH ×2 (18:19→21:32)
[2022-01-02 04:55] LABS: Appearance,Urine Clear (Clear); Bilirubin,Urine Negative (Negative); Blood,Urine Negative (Negative); Color,Urine Yellow; Glucose,Urine (UA) Negative (Negative); Ketones,Urine Negative (Negative); Leukocyte Esterase,Urine Negative (Negative); Nitrite,Urine Negative (Negative); PH, Urine 6.5 (5.0-8.0); Protein,Urine Trace (Negative); Specific Gravity,Urine 1.013 (1.001-1.035); Urobilinogen,Urine <2.0 mg/dL (<2.0)
[2022-01-02] MEDS: LEVOTHYROXINE 75 MCG TAB PO SCH (06:44)
[2022-01-02] MEDS: HEPARIN SOD,PORK IN 0.45% NACL 25,000 UNIT in 0.45% NACL 1 250ML.BAG IV SCH ×2 (06:44→09:46)
[2022-01-02 08:00] LABS: Anisocytosis Slight; Basophils % (A) 0 %; Eosinophils # (A) 0.3 k/uL (0-0.7); Eosinophils % (A) 4 %; HCT 29.5 % (39.0-53.0); HGB 9.2 gm/dL (13.0-17.5); Hypochromasia Marked; Lymphocytes # (A) 0.8 k/uL (1.0-4.8); Lymphocytes % (A) 11 %; MCH 29.5 pg (25.0-35.0); MCHC 31.2 g/dL (31.0-37.0); MCV 94.8 fL (80.0-100.0); Mean Platelet Volume 7.1; Monocytes # (A) 0.6 k/uL (0-1.0); Monocytes % (A) 8 %; Neutrophils # (A) 5.8 k/uL (1.3-7.7); Neutrophils % (A) 74 %; Platelet Count 225 k/uL (150-450); RBC 3.12 m/uL (4.30-5.90); RDW 16.2 % (11.5-15.5); WBC 7.8 k/uL (3.8-10.6)
[2022-01-02] MEDS: IMIPRAMINE 10 MG TAB PO SCH ×3 (09:44→20:35)
[2022-01-02] MEDS: OXYBUTYNIN CHLORIDE 5 MG TAB PO SCH ×3 (09:44→20:35)
[2022-01-02] MEDS: ASPIRIN 81 MG PO SCH (09:44)
[2022-01-02] MEDS: SODIUM BICARBONATE TAB 650 MG TAB PO SCH ×3 (09:44→20:35)
[2022-01-02] MEDS: VIT A,C & E-LUTEIN-MINERALS 1 EACH TAB PO SCH (09:45)
[2022-01-02] MEDS: MULTIVITAMINS, THERA 1 EACH TAB PO SCH (09:45)
[2022-01-02] MEDS: MECLIZINE 25 MG TAB PO SCH ×3 (09:45→20:35)
[2022-01-02] MEDS: VITAMIN E (DL,TOCOPHERYL ACET) 400 UNIT (180 MG) CAP PO SCH (09:45)
[2022-01-02] MEDS: predniSONE 5 MG TAB PO SCH (09:45)
[2022-01-02] MEDS: FUROSEMIDE 20 MG TAB PO SCH (09:45)
[2022-01-02] MEDS: CALCIUM CARBONATE 500 MG CHEWABLE PO SCH (09:45)
--- NOTE | 2022-01-02 10:25 | P.CRDCN ---
History of Present Illness Consult date: 01/02/22 Reason for Consult (text): Dyspnea, abnormal labs History of present illness: HISTORY OF PRESENTING ILLNESS This is an 89-year-old male with a history of hypertension, hypothyroidism, prostate cancer, previous tobacco abuse, dyspnea, previous stroke, recent hospitalization following a fallSustaining right wrist fracture in November of this year. We evaluated the patient at that time for elevated troponins most likely type II from sepsis and acute kidney injury. Patient now presents from [facility]. He is confused and states he does not know how he got to the hospital. Patient apparently was found to have dusky fingers and ears and hypoxic with a pulse ox in the 50s and was transferred to the hospital. Chest x-ray showed no acute process. EKG WBC 7.5, hemoglobin 9.5. D-dimer 2.26. Sodium 139, potassium 3.7, BUN 42 and creatinine 2.3. Lactic acid 1.4. AST 37, ALT 15. Troponin 0.044, 0.046, 0.052. ProBNP 6970. Coronavirus PCR not detected. VQ scan was low probability for pulmonary embolism Chest x-ray no acute pulmonary disease. REVIEW OF SYSTEMS At the time of my exam: CONSTITUTIONAL: Denies fever or chills. CARDIOVASCULAR: Denies chest pain, shortness of breath, orthopnea, PND or palpitations. RESPIRATORY: Denies cough. GASTROINTESTINAL: Denies abdominal pain, diarrhea, constipation, nausea or vomiting. MUSCULOSKELETAL: Denies myalgias. NEUROLOGIC: Denies numbness, tingling or weakness. +confusion ENDOCRINE: Denies fatigue, weight change, polydipsia or polyurina. GENITOURINARY: Denies burning, hematuria or urgency with micturation. HEMATOLOGIC: Denies history of anemia or bleeding. PHYSICAL EXAMINATION Vital sigafebrile, heart rate in the 70s, blood pressure 123/67, pulse ox 93% on 3 L nasal cannula. GEN: No apparent distress, confused, poor recall HEENT: Head is normocephalic. Pupils are equal, round. Sclerae anicteric. Mucous membranes of the mouth are moist. No JVD. No carotid bruit. CHEST EXAMINATION: Lungs are clear to auscultation. No chest wall tenderness is noted on palpation or with deep breathing. HEART EXAMINATION: Regular rate and rhythm. S1, S2 heard. No murmurs, gallops or rub. ABDOMEN: Soft, nontender. Positive bowel sounds. EXTREMITIES: 2+ peripheral pulses, no lower extremity edema and no calf tenderness. +right arm splint NEUROLOGIC EXAMINATION: Patient is awake, alert ASSESSMENT Acute hypoxic respiratory failure at the [facility] of unclear etiology Elevated troponins most likely secondary to acute kidney injury Hypertension Acute kidney injury, appears related to dehydration Prior stroke noted on CT Multiple falls, with recent distal radius fracture History of prostate cancer with previous TURP Remote history of tobacco use PLAN Patient will be started on Lasix 20 mg oral daily Obtain a limited echocardiogram to evaluate EF function Continue with aspirin and Atenolol. Further recs to follow. Nurse practitioner note has been reviewed, I agree with documented findings and plan of care. Patient was seen and examined. 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 History of Any Multi-Drug Resistant Organisms: None Reported Past Surgical History: Bladder Surgery, Breast Surgery, Orthopedic Surgery, Prostate Surgery Additional Past Surgical History / Comment(s): 3 TURPs, bladder tumor resections, prostate biopsy, circumcism, colonoscopy, hemorrhoidectomy, R rotator cuff repair/excision of bone Past Anesthesia/Blood Transfusion Reactions: No Reported Reaction Additional Past Anesthesia/Blood Transfusion Reaction / Comment(s): Pt has received blood in past without reaction. Smoking Status: Former smoker - Past Family History Mother Family Medical History: Cancer Additional Family Medical History / Comment(s): Breast Cancer. Father Family Medical History: Myocardial Infarction (MA) Medications and Allergies Home Medications Medication Instructions Recorded Confirmed Type atenoloL 25 mg PO DAILY@1500 07/19/18 01/01/22 History Imipramine [Tofranil] 10 mg PO TID@0900,1300,2100 11/23/19 01/01/22 History Multivitamins, Thera [Multivitamin 1 tab PO DAILY@0900 11/30/19 01/01/22 History (formulary)] Meclizine [Antivert] 25 mg PO TID@0900,1300,2100 12/10/20 01/01/22 History Vitamin E 400 unit PO DAILY@0900 12/10/20 01/01/22 History Calcium Carbonate [Calcium] 600 mg PO DAILY@0900 11/09/21 01/01/22 History Oxybutynin Chloride 5 mg PO TID@0900,1300,2100 11/09/21 01/01/22 History predniSONE 5 mg PO DAILY@0900 11/09/21 01/01/22 History Acetaminophen-Codeine 300-30mg 1 tab PO TID PRN 12/06/21 01/01/22 History [Tylenol w/codeine #3] Aspirin 81 mg PO DAILY@0900 12/06/21 01/01/22 History Cholestyramine (with Sugar) 4 gm PO QID PRN 12/06/21 01/01/22 History [Questran] Diclofenac Sodium Gel [Voltaren 1 applic TOPICAL Q8H 12/06/21 01/01/22 History Gel] Levothyroxine Sodium [Synthroid] 75 mcg PO DAILY@0600 12/06/21 01/01/22 History Sodium Bicarbonate Tab 650 mg PO TID@0900,1300,2100 12/06/21 01/01/22 History Vits A,C,E/Lutein/Minerals 1 tab PO DAILY@0900 12/06/21 01/01/22 History [Ocuvite with Lutein Tablet] Z-Guard 1 applic TOPICAL Q12H 01/01/22 01/01/22 History Allergies Allergy/AdvReac Type Severity Reaction Status Date / Time No Known Allergies Allergy Verified 01/01/22 08:58 Physical Exam Vitals: Vital Signs Temp Pulse Pulse Resp BP BP Pulse Ox 01/02/22 04:00 98 F 74 20 123/67 99 01/01/22 23:15 98.2 F 76 20 122/58 100 01/01/22 20:00 97.9 F 83 22 135/60 99 01/01/22 16:00 97.8 F 89 20 148/71 100 01/01/22 14:00 66 22 01/01/22 12:00 98.3 F 20 128/66 95 01/01/22 09:26 94 18 111/65 98 01/01/22 09:12 99 Intake and Output 01/01/22 01/02/22 01/02/22 22:59 06:59 14:59 Intake Total 337.233 100.433 358 Output Total 400 Balance 337.233 -299.567 358 Intake: Intake, IV Titration 97.233 100.433 Amount Heparin Sod,Pork in 0.45% 97.233 100.433 NaCl 25,000 unit In 0.45 % NaCl 1 250ml.bag @ 18 UNITS/KG/HR 12.655 mls/hr IV .[id number] [facility] Rx#: [id number] Oral 240 358 Output: Urine 400 Other: Voiding Method Bedpan Bedpan Diaper Diaper Incontinent Incontinent # Voids 1 1 # Bowel Movements 1 Weight 66 kg Results 01/02/22 07:32 01/01/22 11:41 Cardiac Enzymes 01/01/22 01/01/22 01/01/22 Range/Units 08:54 08:54 11:38 AST 37 (17-59) U/L Troponin I 0.044 H* 0.046 H* (0.000-0.034) ng/mL 01/01/22 01/01/22 Range/Units 11:41 17:22 AST 37 (17-59) U/L Troponin I 0.052 H* (0.000-0.034) ng/mL Coagulation 01/01/22 01/01/22 01/02/22 Range/Units 08:54 17:22 01:27 PT 11.8 (9.0-12.0) sec APTT 26.0 122.6 H* 92.5 H (22.0-30.0) sec 01/02/22 Range/Units 07:32 PT (9.0-12.0) sec APTT 71.2 H (22.0-30.0) sec CBC 01/01/22 01/02/22 Range/Units 08:54 07:32 WBC 7.5 7.8 (3.8-10.6) k/uL RBC 3.26 L 3.12 L (4.30-5.90) m/uL Hgb 9.5 L 9.2 L (13.0-17.5) gm/dL Hct 29.7 L 29.5 L (39.0-53.0) % Plt Count 248 225 (150-450) k/uL Comprehensive Metabolic Panel 01/01/22 01/01/22 Range/Units 08:54 11:41 Sodium 139 140 (137-145) mmol/L Potassium 3.7 3.7 (3.5-5.1) mmol/L Chloride 107 108 H (98-107) mmol/L Carbon Dioxide 26 25 (22-30) mmol/L BUN 42 H 42 H (9-20) mg/dL Creatinine 2.30 H 2.34 H (0.66-1.25) mg/dL Glucose 81 77 (74-99) mg/dL Calcium 8.7 8.6 (8.4-10.2) mg/dL AST 37 37 (17-59) U/L ALT 15 13 (4-49) U/L Alkaline Phosphatase 86 79 (38-126) U/L Total Protein 5.9 L 5.5 L (6.3-8.2) g/dL Albumin 2.9 L 2.7 L (3.5-5.0) g/dL Current Medications Generic Name Dose Route Start Last Admin Trade Name Freq PRN Reason Stop Dose Admin Acetaminophen/Codeine Phosphate 1 each 01/01/22 10:51 Acetaminophen-Codeine 300-30mg Tab PO TID PRN Pain Aspirin 81 mg 01/02/22 09:00 Aspirin 81 Mg PO DAILY@0900 [facility] Atenolol 25 mg 01/01/22 15:00 01/01/22 18:19 Atenolol 25 Mg Tab PO 25 mg DAILY@1500 JEEVAN Administration Calcium Carbonate/Glycine 500 mg 01/02/22 09:00 Calcium Carbonate 500 Mg Chewable PO DAILY@0900 [facility] Cholestyramine Resin 4 gm 01/01/22 10:51 Cholestyramine (With Sugar) 4 Gm Packet PO QID PRN LOOSE STOOLS Heparin Sodium (Porcine) 0 unit 01/01/22 10:30 Heparin Sodium 1,000 Un/Ml (10ml Vl) IV PER PROTOCOL PRN Low PTT Protocol Heparin Sodium/Sodium Chloride 250 mls @ 12.655 mls/hr 01/01/22 10:30 01/02/22 06:44 25,000 unit/ Sodium Chloride IV 12 units/kg/hr .[id number] JEEVAN 8.437 mls/hr Administration Protocol 18 UNITS/KG/HR Imipramine HCl 10 mg 01/01/22 13:00 01/01/22 21:32 Imipramine 10 Mg Tab PO 10 mg TID@0900,1300,2100 [facility] Administration Levothyroxine Sodium 75 mcg 01/02/22 06:00 01/02/22 06:44 Levothyroxine 75 Mcg Tab PO 75 mcg DAILY@0600 [facility] Administration Meclizine HCl 25 mg 01/01/22 13:00 01/01/22 20:08 Meclizine 25 Mg Tab PO 25 mg TID@0900,1300,2100 [facility] Administration Multivitamins 1 each 01/02/22 09:00 Multivitamins, Thera 1 Each Tab PO DAILY@0900 [facility] Multivitamins/Minerals 1 each 01/02/22 09:00 Vit A,C & K-[id number] 1 Each Tab PO DAILY@0900 [facility] Naloxone HCl 0.2 mg 01/01/22 10:30 Naloxone 0.4 Mg/Ml 1 Ml Vial IV Q2M PRN Opioid Reversal Oxybutynin Chloride 5 mg 01/01/22 13:00 01/01/22 20:08 Oxybutynin Chloride 5 Mg Tab PO 5 mg TID@0900,1300,2100 [facility] Administration Prednisone 5 mg 01/02/22 09:00 Prednisone 5 Mg Tab PO DAILY@0900 [facility] Sodium Bicarbonate 650 mg 01/01/22 13:00 01/01/22 20:08 Sodium Bicarbonate Tab 650 Mg Tab PO 650 mg TID@0900,1300,2100 [facility] Administration Vitamin E 400 unit 01/02/22 09:00 Vitamin E (Dl,Tocopheryl Acet) 400 Unit (180 Mg) Cap PO DAILY@0900 [facility] Intake and Output 01/01/22 01/02/22 01/02/22 22:59 06:59 14:59 Intake Total 337.233 100.433 358 Output Total 400 Balance 337.233 -299.567 358 Intake: Intake, IV Titration 97.233 100.433 Amount Heparin Sod,Pork in 0.45% 97.233 100.433 NaCl 25,000 unit In 0.45 % NaCl 1 250ml.bag @ 18 UNITS/KG/HR 12.655 mls/hr IV .[id number] [facility] Rx#: [id number] Oral 240 358 Output: Urine 400 Other: Voiding Method Bedpan Bedpan Diaper Diaper Incontinent Incontinent # Voids 1 1 # Bowel Movements 1 Weight 66 kg Patient Weight 01/03/22 06:59 Weight 66 kg 01/02/22 07:32 01/01/22 11:41
--- NOTE | 2022-01-02 12:31 | P.PN ---
Subjective Progress Note Date: 01/02/22 This is a 89-year-old male patient presented to the concerns of shortness breath and abnormal labs. Patient currently is residing at [facility]. Patient started currently at bedside reports the patient has been having symptoms intermittently over the past 2-3 days with no cough. According to ER report patient did have low oxygen levels a nursing facility. Patient has past medical history of prostate cancer, thyroid disorder and recent right wrist fracture. Patient also has been having frequent falls at assisted. Patient also reported to have on-and-off swelling to lower extremities. COVID-19 was negative. Patient was found to have mildly elevated troponin 0.044, BNP 6960, creatinine 2.30 and bun 42. Patient also with elevated d-dimer 2.6. Due to elevated creatinine VQ scan has been ordered to rule out PE. Patient did have recent 2-D echo completed within the past few months showing an EF of 60-65%. IV heparin has been ordered. Cardiology and pulmonary services have been consulted. Current temperature 97.8 pulse rate 82, respiratory rate 18 blood pressure 129/69 patient currently satting 90% on room air On 01/02/2022 patient was seen and examined on the medical floor he is alert and oriented 3 in no apparent distress there is no fever or chills no headache or d izziness no chest pain no shortness of breath no cough, no nausea or vomiting no abdominal pain no diarrhea no blood in the stools no burning with urination no frequency or urgency no hematuria. Vital exam reveals a temperature of 98 pulse 74 respiration 20 blood pressure 123/67 pulse ox 99% on 3 L nasal cannula . Laboratory data revealed a white blood count of 7.8 hemoglobin 9.2 platelet count 225 VQ scan was reviewed and there is evidence of new matching defects in the left lower lobe. There is no perfusion mismatch and the test was read as low probability for pulmonary embolism. At this time will discontinue IV heparin and start Lovenox 40 mg subcu once daily, patient was evaluated by cardiology and was started on IV Lasix, will continue to monitor closely Objective - Vital Signs Vital signs: Vital Signs Temp 97.4 F L 01/02/22 08:00 Pulse 74 01/02/22 08:00 Resp 20 01/02/22 08:00 BP 125/61 01/02/22 08:00 Pulse Ox 100 01/02/22 08:00 Intake & Output 01/01/22 01/02/22 01/02/22 18:59 06:59 18:59 Intake Total 455.233 100.433 383.733 Output Total 400 Balance 455.233 -299.567 383.733 Weight 70.307 kg 66 kg Intake: Intake, IV Titration 97.233 100.433 25.733 Amount Heparin Sod,Pork in 0.45% 97.233 100.433 25.733 NaCl 25,000 unit In 0.45 % NaCl 1 250ml.bag @ 18 UNITS/KG/HR 12.655 mls/hr IV .[id number] [facility] Rx#: [id number] Oral 358 358 Output: Urine 400 Other: Voiding Method Bedpan Bedpan Bedpan Diaper Diaper Diaper Incontinent Incontinent Incontinent # Voids 1 1 # Bowel Movements 1 - Exam Head normocephalic and atraumatic Neck supple no JVD no goiter Lungs clear to auscultation bilaterally no wheezing or crackles Heart regular rate and rhythm S1-S2, no rub or gallop Abdomen is soft nontender nondistended positive bowel sounds no hepat osplenomegaly Extremities no edema. +1 lower extremity edema Neuro alert and orientated to 3. Intermittent episodes of confusion - Labs CBC & Chem 7: 01/02/22 07:32 01/01/22 11:41 Labs: Abnormal Lab Results - Last 24 Hours (Table) 01/01/22 01/01/22 01/01/22 Range/Units 11:38 11:41 17:22 RBC (4.30-5.90) m/uL Hgb (13.0-17.5) gm/dL Hct (39.0-53.0) % RDW (11.5-15.5) % Lymphocytes # (1.0-4.8) k/uL APTT 122.6 H* (22.0-30.0) sec Chloride 108 H (98-107) mmol/L BUN 42 H (9-20) mg/dL Creatinine 2.34 H (0.66-1.25) mg/dL Troponin I 0.046 H* (0.000-0.034) ng/mL Total Protein 5.5 L (6.3-8.2) g/dL Albumin 2.7 L (3.5-5.0) g/dL Urine Protein (Negative) 01/01/22 01/02/22 01/02/22 Range/Units 17:22 01:27 04:20 RBC (4.30-5.90) m/uL Hgb (13.0-17.5) gm/dL Hct (39.0-53.0) % RDW (11.5-15.5) % Lymphocytes # (1.0-4.8) k/uL APTT 92.5 H (22.0-30.0) sec Chloride (98-107) mmol/L BUN (9-20) mg/dL Creatinine (0.66-1.25) mg/dL Troponin I 0.052 H* (0.000-0.034) ng/mL Total Protein (6.3-8.2) g/dL Albumin (3.5-5.0) g/dL Urine Protein Trace H (Negative) 01/02/22 01/02/22 Range/Units 07:32 07:32 RBC 3.12 L (4.30-5.90) m/uL Hgb 9.2 L (13.0-17.5) gm/dL Hct 29.5 L (39.0-53.0) % RDW 16.2 H (11.5-15.5) % Lymphocytes # 0.8 L (1.0-4.8) k/uL APTT 71.2 H (22.0-30.0) sec Chloride (98-107) mmol/L BUN (9-20) mg/dL Creatinine (0.66-1.25) mg/dL Troponin I (0.000-0.034) ng/mL Total Protein (6.3-8.2) g/dL Albumin (3.5-5.0) g/dL Urine Protein (Negative) Assessment and Plan Assessment: 1. Shortness of breath. Chest x-ray was negative. COVID-19 negative. 2. Mildly elevated troponin. Troponin 0.044. Cardiology services have been consulted heparin drip has been ordered 3. Acute on chronic kidney disease stage III. Creatinine elevated at 2.3 4. Elevated d-dimer. VQ scan has been ordered 5. Elevated BNP at 6970. Patient recently had 2-D echo completed showing EF of 60-65%. Cardiology services have been consulted 6. History of recurrent falls 7. History of right wrist fracture 8. History of prostate cancer Cardiology and pulmonary services Patient to be started on IV heparin VQ scan ordered Repeat labs ordered
[2022-01-02 12:59] VITALS: BMI 19.7
--- NOTE | 2022-01-02 16:11 | P.PN ---
Subjective Progress Note Date: 01/02/22 This is a pleasant 89-year-old male patient who is residing at [facility] on the [place] after sustaining a fall and right wrist fracture the first of the year. He also has a history of previous multiple CVAs/TIAs, prostate cancer, chronic kidney disease stage III, remote smoking history. This morning the patient was found to have dusky fingers and ears and was found to be hypoxemic in the 50s at the [facility]. He was transferred here for further evaluation. Chest x-ray reveals no acute pulmonary process. The patient has been in the 90s since arriving to the emergency room. He is currently 98% on room air. He's afebrile. Hemodynamically stable. White count 7.5. Hemoglobin 9.5. D-dimer 2.26. Sodium 139. Potassium 3.7. BUN 42. Creatinine 2.30. Lactic acid 1.4. AST 37. ALT 15. Troponin 0.044. ProBNP 6970. Quintero virus by PCR not detected. He's been initiated on a heparin drip. Unable to do a CT angiogram due to the renal failure. VQ scan is pending. He is seen today in consultation in the emergency room. He is currently sitting up on a stretcher. Awake and alert in no acute distress. Denies any worsening shortness of breath, cough or congestion. No hemoptysis. No chest pain or palpitations. Continued on room air oxygen. The patient is seen today 01/02/2022 in follow-up on the selective care unit. He is currently laying comfortably in bed. Awake and alert in no acute distress. He is maintaining good O2 saturations up to 100% on 2 L/m per nasal cannula. He's been afebrile. Hemodynamically stable. White count 7.8. Hemoglobin 9.2. Urinalysis negative. Heparin drip was discontinued. VQ scan revealed low probability of pulmonary embolism. He is currently on Lovenox for DVT prophylaxis. Objective - Vital Signs Vital signs: Vital Signs Temp 97.4 F L 01/02/22 08:00 Pulse 84 01/02/22 14:00 Resp 20 01/02/22 14:00 BP 133/65 01/02/22 12:00 Pulse Ox 100 01/02/22 12:00 Intake & Output 01/01/22 01/02/22 01/02/22 18:59 06:59 18:59 Intake Total 455.233 100.433 383.733 Output Total 400 Balance 455.233 -299.567 383.733 Weight 70.307 kg 66 kg Intake: Intake, IV Titration 97.233 100.433 25.733 Amount Heparin Sod,Pork in 0.45% 97.233 100.433 25.733 NaCl 25,000 unit In 0.45 % NaCl 1 250ml.bag @ 18 UNITS/KG/HR 12.655 mls/hr IV .[id number] [facility] Rx#: [id number] Oral 358 358 Output: Urine 400 Other: Voiding Method Bedpan Bedpan Bedpan Diaper Diaper Diaper Incontinent Incontinent Incontinent # Voids 1 1 # Bowel Movements 1 - Exam GENERAL EXAM: Alert, pleasant 89-year-old male patient, on 2 L nasal cannula with 100% oxygen saturation, comfortable in no apparent distress. HEAD: Normocephalic. EYES: Normal reaction of pupils, equal size. NOSE: Clear with pink turbinates. THROAT: No erythema or exudates. NECK: No masses, no JVD. CHEST: No chest wall deformity. LUNGS: Equal air entry with no crackles, wheeze, rhonchi or dullness. CVS: S1 and S2 normal with no audible murmur, regular rhythm. ABDOMEN: No hepatosplenomegaly, normal bowel sounds, no guarding or rigidity. SPINE: No scoliosis or deformity SKIN: No rashes. Areas of ecchymosis CENTRAL NERVOUS SYSTEM: No focal deficits, tone is normal in all 4 extremities. EXTREMITIES: There is no peripheral edema. No clubbing, no cyanosis. Peripheral pulses are intact. - Labs CBC & Chem 7: 01/02/22 07:32 01/01/22 11:41 Labs: Abnormal Lab Results - Last 24 Hours (Table) 01/01/22 01/01/22 01/02/22 Range/Units 17:22 17: 01:27 RBC (4.30-5.90) m/uL Hgb (13.0-17.5) gm/dL Hct (39.0-53.0) % RDW (11.5-15.5) % Lymphocytes # (1.0-4.8) k/uL APTT 122.6 H* 92.5 H (22.0-30.0) sec Troponin I 0.052 H* (0.000-0.034) ng/mL Urine Protein (Negative) 01/02/22 01/02/22 01/02/22 Range/Units 04:20 07:32 07:32 RBC 3.12 L (4.30-5.90) m/uL Hgb 9.2 L (13.0-17.5) gm/dL Hct 29.5 L (39.0-53.0) % RDW 16.2 H (11.5-15.5) % Lymphocytes # 0.8 L (1.0-4.8) k/uL APTT 71.2 H (22.0-30.0) sec Troponin I (0.000-0.034) ng/mL Urine Protein Trace H (Negative) Assessment and Plan Assessment: 1 Shortness of breath with reported hypoxemia at the ECF. Currently on 2L with O2 saturation 100%. Chest x-ray reveals no acute pulmonary process. Elevated d -dimer at 2.26. VQ scan revealed low probability for PE. Heparin drip was discontinued. Lovenox for DVT prophylaxis. 2 Acute on chronic renal failure with a creatinine of 2.30, GFR 24 3 Troponin leak 4 Anemia, current hemoglobin 9.2 5 Recent admission for a right distal radius fracture, volar splint utilized. No surgical intervention 6 History of prostate cancer with previous TURP 7 Former smoker Plan: The patient was seen and evaluated Labs reviewed VQ scan reveals low probability for PE Heparin drip discontinued, on Lovenox for DVT prophylaxis Currently stable from the pulmonary status I, the cosigning physician, performed a history & physical examination of the patient. Lungs sounds are clear. Maintaining good O2 saturations in the 90s on 2 L/m per nasal cannula I discussed the assessment and plan of care with my nurse practitioner, Jada Blanchard. I attest to the above note as dictated by her. I have personally seen and examined the patient, performed the documentation and the assessment and plan as written. Number of minutes spent on the visit: 10.
[2022-01-02] MEDS: atenoloL 25 MG TAB PO SCH (17:42)
[2022-01-03] MEDS: LEVOTHYROXINE 75 MCG TAB PO SCH (06:37)
[2022-01-03 09:17] LABS: Anisocytosis Slight; Basophils % (A) 0 %; Eosinophils # (A) 0.2 k/uL (0-0.7); Eosinophils % (A) 2 %; HCT 31.8 % (39.0-53.0); HGB 9.9 gm/dL (13.0-17.5); Hypochromasia Moderate; Lymphocytes # (A) 0.8 k/uL (1.0-4.8); Lymphocytes % (A) 9 %; MCH 29.1 pg (25.0-35.0); MCHC 31.2 g/dL (31.0-37.0); MCV 93.1 fL (80.0-100.0); Monocytes # (A) 0.6 k/uL (0-1.0); Monocytes % (A) 7 %; Neutrophils % (A) 80 %; Platelet Count 243 k/uL (150-450); RBC 3.42 m/uL (4.30-5.90); RDW 16.4 % (11.5-15.5); WBC 8.7 k/uL (3.8-10.6)
[2022-01-03 09:26] LABS: Albumin 2.6 g/dL (3.5-5.0); Calcium 8.3 mg/dL (8.4-10.2); Potassium 3.6 mmol/L (3.5-5.1); Total Bilirubin 0.7 mg/dL (0.2-1.3); Total Protein 5.3 g/dL (6.3-8.2)
[2022-01-03] MEDS: MULTIVITAMINS, THERA 1 EACH TAB PO SCH (10:00)
[2022-01-03] MEDS: FUROSEMIDE 20 MG TAB PO SCH (10:00)
[2022-01-03] MEDS: SODIUM BICARBONATE TAB 650 MG TAB PO SCH ×3 (10:00→21:54)
[2022-01-03] MEDS: IMIPRAMINE 10 MG TAB PO SCH ×3 (10:01→21:54)
[2022-01-03] MEDS: ENOXAPARIN 30 MG/0.3 ML SYRINGE SQ SCH (10:01)
[2022-01-03] MEDS: OXYBUTYNIN CHLORIDE 5 MG TAB PO SCH ×3 (10:01→21:54)
[2022-01-03] MEDS: CALCIUM CARBONATE 500 MG CHEWABLE PO SCH (10:01)
[2022-01-03] MEDS: VITAMIN E (DL,TOCOPHERYL ACET) 400 UNIT (180 MG) CAP PO SCH (10:01)
[2022-01-03] MEDS: ASPIRIN 81 MG PO SCH (10:01)
[2022-01-03] MEDS: predniSONE 5 MG TAB PO SCH (10:01)
[2022-01-03] MEDS: VIT A,C & E-LUTEIN-MINERALS 1 EACH TAB PO SCH (10:01)
[2022-01-03] MEDS: MECLIZINE 25 MG TAB PO SCH ×3 (10:02→21:54)
--- NOTE | 2022-01-03 10:34 | P.PN ---
Subjective Progress Note Date: 01/03/22 This is a 89-year-old male patient presented to the concerns of shortness breath and abnormal labs. Patient currently is residing at [facility]. Patient started currently at bedside reports the patient has been having symptoms intermittently over the past 2-3 days with no cough. According to ER report patient did have low oxygen levels a nursing facility. Patient has past medical history of prostate cancer, thyroid disorder and recent right wrist fracture. Patient also has been having frequent falls at skilled nursing. Patient also reported to have on-and-off swelling to lower extremities. COVID-19 was negative. Patient was found to have mildly elevated troponin 0.044, BNP 6960, creatinine 2.30 and bun 42. Patient also with elevated d-dimer 2.6. Due to elevated creatinine VQ scan has been ordered to rule out PE. Patient did have recent 2-D echo completed within the past few months showing an EF of 60-65%. IV heparin has been ordered. Cardiology and pulmonary services have been consulted. Current temperature 97.8 pulse rate 82, respiratory rate 18 blood pressure 129/69 patient currently satting 90% on room air On 01/02/2022 patient was seen and examined on the medical floor he is alert and oriented 3 in no apparent distress there is no fever or chills no headache or d izziness no chest pain no shortness of breath no cough, no nausea or vomiting no abdominal pain no diarrhea no blood in the stools no burning with urination no frequency or urgency no hematuria. Vital exam reveals a temperature of 98 pulse 74 respiration 20 blood pressure 123/67 pulse ox 99% on 3 L nasal cannula . Laboratory data revealed a white blood count of 7.8 hemoglobin 9.2 platelet count 225 VQ scan was reviewed and there is evidence of new matching defects in the left lower lobe. There is no perfusion mismatch and the test was read as low probability for pulmonary embolism. At this time will discontinue IV heparin and start Lovenox 40 mg subcu once daily, patient was evaluated by cardiology and was started on IV Lasix, will continue to monitor closely On 01/03/2022 to patient's alert and oriented 3 resting comfortably in bed. Patient remains on room air. Lasix by mouth has been added. Creatinine 1.9 to bun 35. UA was negative. Patient remains on Lovenox 40 subcu daily. At this time patient denies chest pain or shortness of breath. Patient denies nausea vomiting or diarrhea. Patient denies any urinary burning or frequency Objective - Vital Signs Vital signs: Vital Signs Temp 97.6 F 01/03/22 04:30 Pulse 80 01/03/22 04:30 Resp 18 01/03/22 04:30 BP 236/69 01/03/22 04:30 Pulse Ox 98 01/03/22 04:30 Intake & Output 01/02/22 01/03/22 01/03/22 18:59 06:59 18:59 Intake Total 383.733 Output Total 125 Balance 383.733 -125 Weight 66 kg Intake: Intake, IV Titration 25.733 Amount Heparin Sod,Pork in 0.45% 25.733 NaCl 25,000 unit In 0.45 % NaCl 1 250ml.bag @ 18 UNITS/KG/HR 12.655 mls/hr IV .[id number] [facility] Rx#: [id number] Oral 358 Output: Urine 125 Other: Voiding Method Bedpan Urinal Diaper Diaper Incontinent Incontinent # Voids 1 2 # Bowel Movements 1 - Exam Head normocephalic and atraumatic Neck supple no JVD no goiter Lungs clear to auscultation bilaterally no wheezing or crackles Heart regular rate and rhythm S1-S2, no rub or gallop Abdomen is soft nontender nondistended positive bowel sounds no hepato splenomegaly Extremities no edema. +1 lower extremity edema Neuro alert and orientated to 3. Intermittent episodes of confusion - Labs CBC & Chem 7: 01/03/22 08:26 01/03/22 08:26 Labs: Abnormal Lab Results - Last 24 Hours (Table) 01/03/22 01/03/22 Range/Units 08:26 08:26 RBC 3.42 L (4.30-5.90) m/uL Hgb 9.9 L (13.0-17.5) gm/dL Hct 31.8 L (39.0-53.0) % RDW 16.4 H (11.5-15.5) % Lymphocytes # 0.8 L (1.0-4.8) k/uL BUN 35 H (9-20) mg/dL Creatinine 1.92 H (0.66-1.25) mg/dL Glucose 106 H (74-99) mg/dL Calcium 8.3 L (8.4-10.2) mg/dL Total Protein 5.3 L (6.3-8.2) g/dL Albumin 2.6 L (3.5-5.0) g/dL Assessment and Plan Assessment: 1. Shortness of breath secondary to acute diastolic congestive heart failure. Chest x-ray was negative. COVID-19 negative. 2. Mildly elevated troponin. Troponin 0.044. Cardiology services have been consulted heparin drip has been ordered 3. Acute on chronic kidney disease stage III. Creatinine elevated at 2.3 4. Elevated d-dimer. VQ scan completed showing low probability for PE 5. Elevated BNP at 6970. Patient recently had 2-D echo completed showing EF of 60-65%. Cardiology services have been consulted 6. History of recurrent falls 7. History of right wrist fracture 8. History of prostate cancer Cardiology and pulmonary services following. Lasix 20 mg added Anticipate discharge in the next 24-48 hours return ECF
--- NOTE | 2022-01-03 12:01 | P.PN ---
Subjective Progress Note Date: 01/03/22 (-) History of present illness: HISTORY OF PRESENTING ILLNESS This is an 89-year-old male with a history of hypertension, hypothyroidism, prostate cancer, previous tobacco abuse, dyspnea, previous stroke, recent hospitalization following a fallSustaining right wrist fracture in November of this year. We evaluated the patient at that time for elevated troponins most likely type II from sepsis and acute kidney injury. Patient now presents from [facility]. He is confused and states he does not know how he got to the hospital. Patient apparently was found to have dusky fingers and ears and hypoxic with a pulse ox in the 50s and was transferred to the hospital. Chest x-ray showed no acute process. EKG WBC 7.5, hemoglobin 9.5. D-dimer 2.26. Sodium 139, potassium 3.7, BUN 42 and creatinine 2.3. Lactic acid 1.4. AST 37, ALT 15. Troponin 0.044, 0.046, 0.052. ProBNP 6970. Coronavirus PCR not detected. VQ scan was low probability for pulmonary embolism Chest x-ray no acute pulmonary disease. 01/03: Patient is seen today in follow-up. He denies having any chest pain or difficulty in breathing. He has been maintaining a pulse ox in the 90s since admission. He is currently on room air with pulse ox of 98%. Repeat blood work reveals BUN 35 creatinine 1.92. Hemoglobin 9.9. Recommend continuing his home dose of Lasix 20 mg daily PHYSICAL EXAMINATION Vital sigafebrile, heart rate in the 70s, blood pressure 123/67, pulse ox 93% on 3 L nasal cannula. GEN: No apparent distress, confused, poor recall HEENT: Head is normocephalic. Pupils are equal, round. Sclerae anicteric. Mucous membranes of the mouth are moist. No JVD. No carotid bruit. CHEST EXAMINATION: Lungs are clear to auscultation. No chest wall tenderness is noted on palpation or with deep breathing. HEART EXAMINATION: Regular rate and rhythm. S1, S2 heard. No murmurs, gallops or rub. ABDOMEN: Soft, nontender. Positive bowel sounds. EXTREMITIES: 2+ peripheral pulses, no lower extremity edema and no calf tenderness. +right arm splint NEUROLOGIC EXAMINATION: Patient is awake, alert ASSESSMENT Acute hypoxic respiratory failure at the [facility] of unclear etiology, no documented hypoxia during hospitalization Elevated troponins secondary to acute kidney injury Hypertension Acute kidney injury, appears related to dehydration Prior stroke noted on CT Multiple falls, with recent distal radius fracture History of prostate cancer with previous TURP Remote history of tobacco use PLAN Continue Lasix 20 mg oral daily Continue with aspirin and Atenolol. Patient is cleared for discharge, cardiology will follow on an as-needed basis. Nurse practitioner note has been reviewed, I agree with documented findings and plan of care. Patient was seen and examined. t Objective - Vital Signs Vital signs: Vital Signs Temp 97.6 F 01/03/22 04:30 Pulse 80 01/03/22 04:30 Resp 18 01/03/22 04:30 BP 236/69 01/03/22 04:30 Pulse Ox 98 01/03/22 04:30 Intake & Output 01/02/22 01/03/22 01/03/22 18:59 06:59 18:59 Intake Total 383.733 Output Total 125 Balance 383.733 -125 Weight 66 kg Intake: Intake, IV Titration 25.733 Amount Heparin Sod,Pork in 0.45% 25.733 NaCl 25,000 unit In 0.45 % NaCl 1 250ml.bag @ 18 UNITS/KG/HR 12.655 mls/hr IV .[id number] [facility] Rx#: [id number] Oral 358 Output: Urine 125 Other: Voiding Method Bedpan Urinal Diaper Diaper Incontinent Incontinent # Voids 1 2 # Bowel Movements 1 - Labs CBC & Chem 7: 01/03/22 08:26 01/03/22 08:26
[2022-01-03] MEDS: atenoloL 25 MG TAB PO SCH (17:45)
[2022-01-04] MEDS: LEVOTHYROXINE 75 MCG TAB PO SCH (06:34)
[2022-01-04 08:08] LABS: Anisocytosis Slight; Basophils % (A) 0 %; Eosinophils # (A) 0.1 k/uL (0-0.7); Eosinophils % (A) 2 %; HCT 31.4 % (39.0-53.0); HGB 9.6 gm/dL (13.0-17.5); Hypochromasia Marked; Lymphocytes # (A) 0.7 k/uL (1.0-4.8); Lymphocytes % (A) 11 %; MCH 28.9 pg (25.0-35.0); MCHC 30.5 g/dL (31.0-37.0); MCV 94.8 fL (80.0-100.0); Mean Platelet Volume 7.1; Monocytes # (A) 0.5 k/uL (0-1.0); Monocytes % (A) 7 %; Neutrophils # (A) 5.5 k/uL (1.3-7.7); Neutrophils % (A) 78 %; Platelet Count 223 k/uL (150-450); RBC 3.31 m/uL (4.30-5.90); RDW 16.3 % (11.5-15.5); WBC 6.9 k/uL (3.8-10.6)
[2022-01-04 08:19] LABS: Albumin 2.4 g/dL (3.5-5.0); Calcium 8.2 mg/dL (8.4-10.2); Potassium 3.3 mmol/L (3.5-5.1); Total Bilirubin 0.6 mg/dL (0.2-1.3); Total Protein 5.1 g/dL (6.3-8.2)
[2022-01-04] MEDS: predniSONE 5 MG TAB PO SCH (09:41)
[2022-01-04] MEDS: OXYBUTYNIN CHLORIDE 5 MG TAB PO SCH ×2 (09:41→12:39)
[2022-01-04] MEDS: CALCIUM CARBONATE 500 MG CHEWABLE PO SCH (09:41)
[2022-01-04] MEDS: IMIPRAMINE 10 MG TAB PO SCH ×2 (09:41→12:39)
[2022-01-04] MEDS: MECLIZINE 25 MG TAB PO SCH ×2 (09:41→12:39)
[2022-01-04] MEDS: ASPIRIN 81 MG PO SCH (09:41)
[2022-01-04] MEDS: VITAMIN E (DL,TOCOPHERYL ACET) 400 UNIT (180 MG) CAP PO SCH (09:41)
[2022-01-04] MEDS: ENOXAPARIN 30 MG/0.3 ML SYRINGE SQ SCH (09:41)
[2022-01-04] MEDS: VIT A,C & E-LUTEIN-MINERALS 1 EACH TAB PO SCH (09:42)
[2022-01-04] MEDS: SODIUM BICARBONATE TAB 650 MG TAB PO SCH ×2 (09:42→12:39)
[2022-01-04] MEDS: MULTIVITAMINS, THERA 1 EACH TAB PO SCH (09:42)
[2022-01-04] MEDS: FUROSEMIDE 20 MG TAB PO SCH (09:42)
[2022-01-04] MEDS ORDERED: POTASSIUM CHLORIDE ER 20 MEQ TAB.ER PO STA (10:22)
[2022-01-04 12:16] VITALS: RESP 16
--- NOTE | 2022-01-04 13:50 | P.DS ---
Providers Date of admission: 01/04/22 08:03 Expected date of discharge: 01/04/22 Attending physician: Jose Moreno Consults: 01/01/22 10:31 Consult Physician Routine Consulting Provider: Pradeep Saenz Consult Reason/Comments: dyspnea, abnl labs Do you want consulting provider notified?: Yes Consult Physician Routine Consulting Provider: Lucian Montiel Consult Reason/Comments: dyspnea Do you want consulting provider notified?: Yes Primary care physician: Jose [facility] Course: Diagnoses on discharge: 1. Shortness of breath secondary to acute diastolic congestive heart failure. Chest x-ray was negative. COVID-19 negative. 2. Mildly elevated troponin. Troponin 0.044. Cardiology services have been consulted heparin drip has been ordered, No evidence of acute IN per cardiology. 3. Acute on chronic kidney disease stage III. Creatinine elevated at 2.3 4. Elevated d-dimer. VQ scan completed showing low probability for PE 5. Elevated BNP at 6970. Patient recently had 2-D echo completed showing EF of 60-65%. Cardiology services have been consulted 6. History of recurrent falls 7. History of right wrist fracture 8. History of prostate cancer Hospital course: This is a 89-year-old male patient presented to the concerns of shortness breath and abnormal labs. Patient currently is residing at [facility]. Patient started currently at bedside reports the patient has been having symptoms intermittently over the past 2-3 days with no cough. According to ER report patient did have low oxygen levels a nursing facility. Patient has past medical history of prostate cancer, thyroid disorder and recent right wrist fracture. Patient also has been having frequent falls at assisted. Patient also reported to have on-and-off swelling to lower extremities. COVID-19 was negative. Patient was found to have mildly elevated troponin 0.044, BNP 6960, creatinine 2.30 and bun 42. Patient also with elevated d-dimer 2.6. Due to elevated creatinine VQ scan has been ordered to rule out PE. Patient did have recent 2-D echo completed within the past few months showing an EF of 60-65%. IV heparin has been ordered. Cardiology and pulmonary services have been consulted. Current temperature 97.8 pulse rate 82, respiratory rate 18 blood pressure 129/69 patient currently satting 90% on room air On 01/02/2022 patient was seen and examined on the medical floor he is alert and oriented 3 in no apparent distress there is no fever or chills no headache or dizziness no chest pain no shortness of breath no cough, no nausea or vomiting no abdominal pain no diarrhea no blood in the stools no burning with urination no frequency or urgency no hematuria. Vital exam reveals a temperature of 98 pulse 74 respiration 20 blood pressure 123/67 pulse ox 99% on 3 L nasal cannula . Laboratory data revealed a white blood count of 7.8 hemoglobin 9.2 platelet count 225 VQ scan was reviewed and there is evidence of new matching defects in the left lower lobe. There is no perfusion mismatch and the test was read as low probability for pulmonary embolism. At this time will discontinue IV heparin and start Lovenox 40 mg subcu once daily, patient was evaluated by cardiology and was started on IV Lasix, will continue to monitor closely On 01/03/2022 to patient's alert and oriented 3 resting comfortably in bed. Patient remains on room air. Lasix by mouth has been added. Creatinine 1.9 to bun 35. UA was negative. Patient remains on Lovenox 40 subcu daily. At this time patient denies chest pain or shortness of breath. Patient denies nausea vomiting or diarrhea. Patient denies any urinary burning or frequency On 01/04/2022 patient was seen and examined on the medical floor he is alert and oriented 3 in no apparent distress his shortness of breath and lower extremity swelling has improved significantly there is no fever or chills no headache or dizziness no chest pain no cough no nausea or vomiting no abdominal pain no diarrhea no blood in the stools no burning with urination no frequency or urgency and no hematuria. At this time will transfer patient back to [facility] to continue rehab. Will follow closely at the assisted Plan - Discharge Summary Discharge Rx Participant: No New Discharge Prescriptions: New Furosemide [Lasix] 20 mg PO DAILY tab Continue atenoloL 25 mg PO DAILY@1500 Imipramine [Tofranil] 10 mg PO TID@0900,1300,2100 Multivitamins, Thera [Multivitamin (formulary)] 1 tab PO DAILY@0900 Vitamin E 400 unit PO DAILY@0900 Meclizine [Antivert] 25 mg PO TID@0900,1300,2100 Acetaminophen-Codeine 300-30mg [Tylenol w/codeine #3] 1 tab PO TID PRN PRN Reason: Pain Sodium Bicarbonate Tab 650 mg PO TID@0900,1300,2100 Diclofenac Sodium Gel [Voltaren Gel] 1 applic TOPICAL Q8H Levothyroxine Sodium [Synthroid] 75 mcg PO DAILY@0600 Aspirin 81 mg PO DAILY@0900 predniSONE 5 mg PO DAILY@0900 Oxybutynin Chloride 5 mg PO TID@0900,1300,2100 Calcium Carbonate [Calcium] 600 mg PO DAILY@0900 Cholestyramine (with Sugar) [Questran Packet] 4 gm PO QID PRN PRN Reason: LOOSE STOOLS Vits A,C,E/Lutein/Minerals [Ocuvite with Lutein Tablet] 1 tab PO DAILY@0900 Z-Guard 1 applic TOPICAL Q12H Discharge Medication List atenoloL 25 mg PO DAILY@1500 07/19/18 [History] Imipramine [Tofranil] 10 mg PO TID@0900,1300,2100 11/23/19 [History] Multivitamins, Thera [Multivitamin (formulary)] 1 tab PO DAILY@0900 11/30/19 [History] Meclizine [Antivert] 25 mg PO TID@0900,1300,2100 12/10/20 [History] Vitamin E 400 unit PO DAILY@0900 12/10/20 [History] Calcium Carbonate [Calcium] 600 mg PO DAILY@0900 11/09/21 [History] Oxybutynin Chloride 5 mg PO TID@0900,1300,2100 11/09/21 [History] predniSONE 5 mg PO DAILY@0900 11/09/21 [History] Acetaminophen-Codeine 300-30mg [Tylenol w/codeine #3] 1 tab PO TID PRN 12/06/21 [History] Aspirin 81 mg PO DAILY@0900 12/06/21 [History] Cholestyramine (with Sugar) [Questran Packet] 4 gm PO QID PRN 12/06/21 [History] Diclofenac Sodium Gel [Voltaren Gel] 1 applic TOPICAL Q8H 12/06/21 [History] Levothyroxine Sodium [Synthroid] 75 mcg PO DAILY@0600 12/06/21 [History] Sodium Bicarbonate Tab 650 mg PO TID@0900,1300,2100 12/06/21 [History] Vits A,C,E/Lutein/Minerals [Ocuvite with Lutein Tablet] 1 tab PO DAILY@0900 12/06/21 [History] Z-Guard 1 applic TOPICAL Q12H 01/01/22 [History] Furosemide [Lasix] 20 mg PO DAILY tab 01/04/22 [Rx] Follow up Appointment(s)/Referral(s): Jose Moreno MD [Primary Care Provider] - 1-2 days
[2022-01-04] MEDS: atenoloL 25 MG TAB PO SCH (16:05)
[2022-01-04 17:34] VITALS: BP 127/60; PULSE 78; TEMP 97.7
== END 2022-01-04 16:38 | DRG 291 ==
LOC: EC 08:42 → 3SCARD 10:30 → OBSVTOIN 01-04 08:03
PROVIDERS: ADMIT Internal Medicine; ATTEND Internal Medicine
DX: I13.0 Hypertensive heart and chronic kidney disease with heart failure and stage 1 through stage 4 chronic kidney disease, or unspecified chronic kidney disease (principal); I50.31 Acute diastolic (congestive) heart failure; J96.01 Acute respiratory failure with hypoxia; N17.9 Acute kidney failure, unspecified; N18.30 Chronic kidney disease, stage 3 unspecified; D63.1 Anemia in chronic kidney disease; E03.9 Hypothyroidism, unspecified; E86.0 Dehydration; R79.1 Abnormal coagulation profile; R32 Unspecified urinary incontinence; R77.8 Other specified abnormalities of plasma proteins; R29.6 Repeated falls; M19.90 Unspecified osteoarthritis, unspecified site; Z91.81 History of falling; G89.29 Other chronic pain; Z20.822 Contact with and (suspected) exposure to COVID-19; Z79.82 Long term (current) use of aspirin; Z79.890 Hormone replacement therapy; Z79.899 Other long term (current) drug therapy; Z80.3 Family history of malignant neoplasm of breast; Z82.49 Family history of ischemic heart disease and other diseases of the circulatory system; Z85.46 Personal history of malignant neoplasm of prostate; Z86.73 Personal history of transient ischemic attack (TIA), and cerebral infarction without residual deficits; Z87.891 Personal history of nicotine dependence; Z90.79 Acquired absence of other genital organ(s); Z98.890 Other specified postprocedural states; Z87.81 Personal history of (healed) traumatic fracture; Z86.19 Personal history of other infectious and parasitic diseases; Z92.3 Personal history of irradiation
CPT/HCPCS: 36415; 71046; 78582; 80053; 81003; 83605; 83880; 84484; 85025; 85379; 85610; 85730; 87635; 93005; 96365; 99285